=== PATIENT | male | born 1955 | race Caucasian/White ===

== ENCOUNTER → 2017-02-03 | Outpatient (CLI) | payer MEDICARE, MEDICAID ==
[2017-02-03 09:21] LABS: CHOLESTEROL 208.31 mg/dL (0-200); Direct HDL 61 mg/dL (>40); TRIGLYCERIDES 103 mg/dL (<150)
[2017-02-03 09:34] LABS: DIRECT LDL 109 mg/dL (<100)
[2017-02-03 09:41] LABS: FREE T3 2.86 pg/mL (2.77-5.27)
[2017-02-03 09:55] LABS: THYROID STIMULATING HORMONE 4.33 uIU/mL (0.47-4.68)
== END ==
LOC: LAB 08:44
PROVIDERS: ATTEND Family Medicine Geriatric Medicine
DX: E03.9 Hypothyroidism, unspecified (principal); E78.5 Hyperlipidemia, unspecified; C30.0 Malignant neoplasm of nasal cavity
CPT/HCPCS: 36415; 80061; 84436; 84443; 84481

== ENCOUNTER 2017-02-22 15:01 | Inpatient (IN) | payer MEDICARE, MEDICAID ==
--- NOTE | 2017-02-22 15:26 | ER Document Report ---
ED Respiratory Problem - General Time seen by provider: 15:20 Mode of Arrival: Medic Information source: Patient TRAVEL OUTSIDE OF THE [place] IN LAST 30 DAYS: No - HPI Patient complains to provider of: COPD, Short of breath Onset: Other - Refer to HPI notes Context: Hx COPD Associated symptoms: Cough, Difficulty breathing, Wheezing Similar symptoms previously: Yes Recently seen / treated by doctor: No <ANN ARSHAD - Last Filed: 02/22/17 23:30> <KATT CHÁVEZ - Last Filed: 02/22/17 23:42> - General Chief Complaint: Respiratory Distress Stated Complaint: RESPIRATORY DISTRESS Notes: Patient is a 60-year-old male presented to emergency department for difficulty breathing. Patient states he woke up this morning and his breathing has become worse throughout the day. Patient states he last had breathing like this 2 years ago. Patient has a history of COPD and is a former smoker. Patient also has had double lung resection in 2008 and patient states that he is using only about 1/3 of his lungs now. Patient states he uses Advair, Singulair and Lipitor and also has an albuterol inhaler; patient states that he carries an inhaler in his pocket for emergencies but did not use it today. Patient has a cough which he states is chronic. Patient also states he had some chest pain around his ribs this morning bilaterally and now he is having some back pain. Patient denies any fever, nausea, vomiting, or diarrhea. Patient has no known allergies. (ANN ARSHAD) - Related Data Allergies/Adverse Reactions: No Known Allergies Allergy (Verified 11/02/12 12:23) Past Medical History - General Information source: Patient - Social History Smoking Status: Former Smoker Cigarette use (# per day): No Chew tobacco use (# tins/day): No Frequency of alcohol use: None Drug Abuse: None Family History: None Patient has suicidal ideation: No Patient has homicidal ideation: No Pulmonary Medical History: Reports: Hx Bronchitis, Hx COPD, Hx Sleep Apnea Malignancy Medical History: Reports Hx Lung Cancer, Reports Hx Skin Cancer Past Surgical History: Reports: Hx Abdominal Surgery, Hx Bowel Surgery, Other - Double lung reductions caused by COPD (2008) - Immunizations Hx Diphtheria, Pertussis, Tetanus Vaccination: Yes - 2011 Hx Pneumococcal Vaccination: 10/19/09 <ANN ARSHAD - Last Filed: 02/22/17 23:30> Review of Systems - Review of Systems Constitutional: No symptoms reported EENT: No symptoms reported Cardiovascular: See HPI, Chest pain Respiratory: See HPI, Short of breath, Wheezing Gastrointestinal: No symptoms reported Genitourinary: No symptoms reported Male Genitourinary: No symptoms reported Musculoskeletal: No symptoms reported Skin: No symptoms reported Hematologic/Lymphatic: No symptoms reported Neurological/Psychological: No symptoms reported -: Yes All other systems reviewed and negative <MARTIN ARSHADINE - Last Filed: 02/22/17 23:30> Physical Exam <JOHNATHANMARTIN NEWTONINE - Last Filed: 02/22/17 23:30> <KATT CHÁVEZ - Last Filed: 02/22/17 23:42> - Vital signs Vitals: Resp Pulse Ox 20 95 02/22/17 15:19 02/22/17 15:19 - Notes Notes: GENERAL: Alert, interacts well. No acute distress. HEAD: Normocephalic, atraumatic. EYES: Pupils equal, round, and reactive to light. Extraocular movements intact. ENT: Oral mucosa moist, tongue midline. NECK: Full range of motion. Supple. Trachea midline. LUNGS: Poor air movement, expiratory wheeze and trace rhonchi, trace inspiratory crackles, retractions and accessory muscle usage. HEART: Regular rate and rhythm. No murmurs, gallops, or rubs. ABDOMEN: Soft, non-tender. Non-distended. Bowel sounds present in all 4 quadrants. EXTREMITIES: Moves all 4 extremities spontaneously. No edema, radial and dorsalis pedis pulses 2/4 bilaterally. No cyanosis. NEUROLOGICAL: Alert and oriented x3. Normal speech. PSYCH: Normal affect, normal mood. SKIN: Warm, dry, normal turgor. No rashes or lesions noted. (ANN ARSHAD) Course - Laboratory Result Diagrams: 02/22/17 16:09 02/22/17 15:50 - Consults Dr. Rodriguez Time consulted: 19:44 <ANN ARSHAD - Last Filed: 02/22/17 23:30> - Laboratory Result Diagrams: 02/22/17 16:09 02/22/17 15:50 <KATT CHÁVEZ - Last Filed: 02/22/17 23:42> - Re-evaluation Re-evalutation: 02/22/17 23:42 CBC shows leukocytosis of 14.2, pH slightly low at 7.3 on the venous blood gas, CMP grossly unremarkable, cardiac enzymes negative, chest x-ray is hyperinflated , CT a of the chest was ordered due to persistent hypoxia and hypotension, which showed bibasilar pneumonia but no pulmonary embolism. Patient was placed on BiPAP, given multiple breathing treatments and steroids, this eventually improved his respiratory distress, fluids improved his hypotension, patient was discussed with Dr. Rodriguez hospitalist who agrees to admit the patient to his service, patient was started on cefepime and Levaquin for his pneumonia. (KATT CHÁVEZ) - Vital Signs Vital signs: Temp Pulse Resp BP Pulse Ox 12 109/82 97 02/22/17 23:01 02/22/17 23:00 02/22/17 23:01 - Laboratory Laboratory results interpreted by me: 02/22/17 02/22/17 15:50 16:09 WBC 14.2 H RDW 14.4 H Seg Neuts % (Manual) 81 H Band Neutrophils % 12 H Lymphocytes % (Manual) 6 L Monocytes % (Manual) 0 L Abs Neuts (Manual) 13.2 H Abs Monocytes (Manual) 0.0 L Sodium 135.4 L Direct Bilirubin 0.5 H Creatine Kinase 44 L - Consults Dr. Rodriguez Reason for consultation: 02/22/17 19:[address] Rodriguez to admit the patient. He states there are no ICU beds available. He recommends to give the patient a liter of fluid and see if his blood pressure rises some. If he is no longer hypotensive then he will admit him to a medical floor, if he is still hypotensive then the patient needs to be transferred to another facility that has ICU beds. 02/22/17 23:[address] Rodriguez for possible admission. Patient will be admitted to a medical floor. (ANN ARSHAD) Critical Care Note - Critical Care Note Total time excluding time spent on procedures (mins): 45 <KATT CHÁVEZ - Last Filed: 02/22/17 23:42> Discharge <ANN ARSHAD - Last Filed: 02/22/17 23:30> - Discharge Admitting Provider: Hospitalist Unit Admitted: IMCU <KATT CHÁVEZ - Last Filed: 02/22/17 23:42> - Discharge Clinical Impression: Acute and chronic respiratory failure with hypoxia Pneumonia Qualifiers: Pneumonia type: due to unspecified organism Laterality: bilateral Lung location : lower lobe of lung Qualified Code(s): J18.9 - Pneumonia, unspecified organism Condition: Fair Disposition: ADMITTED INPATIENT Referrals: FILIBERTO PATEL DO [Primary Care Provider] - Follow up as needed Scribe Attestation: 02/22/17 23:42 I personally performed the services described in the documentation, reviewed and edited the documentation which was dictated to the scribe in my presence, and it accurately records my words and actions. (KATT CHÁVEZ) Scribe Documentation - Scribe Written by Dino:: Dino Lombardi, 02/22/17 18:30 acting as scribe for :: Cheryl <ANN ARSHAD - Last Filed: 02/22/17 23:30>
[2017-02-22] MEDS ORDERED: METHYLPREDNISOLONE INJ 125 MG/2 ML SDV IV ONE (15:29)
[2017-02-22] MEDS ORDERED: ALBUTEROL SULFATE 0.083% NEB 2.5 MG/3 ML AMPUL NEB ONE ×3 (15:29→20:25)
[2017-02-22 16:42] LABS: VENOUS BLOOD BASE EXCESS -2.1 mmol/L; VENOUS BLOOD HCO3 25.5 mmol/L (20-32); VENOUS BLOOD PCO2 53.4 mmHg (35-63); VENOUS BLOOD PH 7.3 (7.30-7.42)
[2017-02-22 16:45] LABS: ALANINE AMINOTRANSFERASE 25 U/L (21-72); ALBUMIN 4.1 g/dL (3.5-5.0); ALKALINE PHOSPHATASE 79 U/L (38-126); ANION GAP 12 (5-19); ASPARTATE AMINO TRANSFERASE 21 U/L (17-59); BILIRUBIN,DIRECT 0.5 mg/dL (0.0-0.4); BLOOD UREA NITROGEN 15 mg/dL (7-20); CALCIUM 9.5 mg/dL (8.4-10.2); CARBON DIOXIDE 24 mmol/L (22-30); CHLORIDE 99 mmol/L (98-107); CREATINE KINASE 44 U/L (55-170); CREATININE RESULT 0.64 mg/dL (0.52-1.25); GLUCOSE 101 mg/dL (75-110); POTASSIUM 3.9 mmol/L (3.6-5.0); SODIUM 135.4 mmol/L (137-145); TOTAL PROTEIN 7.1 g/dL (6.3-8.2)
[2017-02-22 16:50] LABS: HEMATOCRIT 42.3 % (37.9-51.0); HEMOGLOBIN 13.9 g/dL (13.5-17.0); HGB HCT DIFFERENCE -0.6; MEAN CORPUSCULAR HEMOGLOBIN 27.3 pg (27.0-33.4); MEAN CORPUSCULAR HGB CONC 32.9 g/dL (32.0-36.0); MEAN CORPUSCULAR VOLUME 83 fl (80-97); RED BLOOD COUNT 5.09 10^6/uL (4.35-5.55); RED CELL DISTRIBUTION WIDTH 14.4 % (11.5-14.0); WHITE BLOOD COUNT 14.2 10^3/uL (4.0-10.5)
[2017-02-22 16:57] LABS: CREATINE KINASE MB < 0.22 ng/mL (<4.55); TROPONIN I < 0.012 ng/mL
[2017-02-22 17:09] LABS: BAND NEUTROPHILS % (MANUAL) 12 % (3-5); BASOPHILS % (MANUAL) 1 % (0-2); EOSINOPHILS % (MANUAL) 0 % (0-6); LYMPHOCYTES % (MANUAL) 6 % (13-45); TOTAL CELLS COUNTED 100
[2017-02-22 17:10] LABS: RBC MORPHOLOGY COMMENT NORMO-CYTIC/CHROMIC
[2017-02-22] MEDS ORDERED: NORMAL SALINE 1000 ML 1,000 ML IV ONE (19:46)
[2017-02-22] MEDS ORDERED: LEVOFLOXACIN 750 MG/D5W RTU 150 ML IV ONE (23:14)
[2017-02-22] MEDS ORDERED: CEFEPIME 1 GM/D5W RTU 50 ML IV ONE (23:14)
[2017-02-22] MEDS ORDERED: CEFEPIME 2 GM/D5W RTU 2 GM/50 ML RTUPB IV ONE (23:47)
[2017-02-23] MEDS ORDERED: INSULIN LISPRO 100 UNIT/ML 3 ML VIAL SUBCUT PRN (00:26)
[2017-02-23] MEDS ORDERED: GLUCAGON,HUMAN RECOMB 1 MG INJ IM PRN (00:26)
[2017-02-23] MEDS ORDERED: DEXTROSE 50%-WATER 25 GM/50 ML DISP.SYRIN IV PRN ×2 (00:26)
[2017-02-23] MEDS ORDERED: DEXTROSE 40% GEL 15 GM TUBE PO PRN ×2 (00:26)
[2017-02-23] MEDS ORDERED: ALBUTEROL SULFATE 0.083% NEB 2.5 MG/3 ML AMPUL NEB PRN (00:27)
[2017-02-23] MEDS ORDERED: ACETAMINOPHEN 325 MG TABLET PO PRN (00:27)
[2017-02-23] MEDS ORDERED: GUAIFENESIN SYRP 200 MG/10 ML UDC PO PRN (00:27)
[2017-02-23] MEDS ORDERED: DEXTROSE 5%-NORMAL SALINE 1,000 ML IV PRN (00:29)
--- NOTE | 2017-02-23 01:02 | PDOC H&P ---
History of Present Illness Admission Date/PCP: 02/22/17 23:36 PCP Uncertain Андрей Patient complains of: SOB History of Present Illness: CHAD LY is a 61 year old male, former smoker, with non-home O2 dependent COPD, on CPAP at night, who presents to the emergency room for evaluation of a less than 24-hour history of progressive difficulty breathing. Patient has been discussed with emergency room physician who evaluated the patient. Progressive shortness of breath, in particular with much of any exertion, despite using his rescue inhaler at home. Initially bilateral rib pain with coughing, but now pain is simply in his back, again, with coughing. Cough productive of some sputum. Per EMS, 81% saturation on room air. 93% non-rebreather; 98% after neb treatment. No fever chills, nausea vomiting. For short while, mildly hypotensive in the emergency room. However, pressures have normalized with IV fluid and remained stable. Patient breathing much more comfortably now, with confirmation by ER staff, patient himself, and son, who is present at his side with his approval. neither antibiotics nor hospitalization for the last 3 months. Many years since his last flu vaccination. Has had a Pneumovax. Hospitalized on our service February 18 through the 2014, with final diagnoses including acute on chronic hypoxic respiratory failure secondary to pneumonia and COPD exacerbation. History and physical and discharge summary have been reviewed. Laboratory results are listed in [facility] and are reviewed. X-ray summary results are listed below, with full report(s) reviewed. CT scan report notes new Left lung nodule; discussed with patient and son, with strong recommendation to continue follow-up as outpatient. Son states that a lung nodule currently is being followed as an outpatient by Dr. Chiang. EKG reviewed. Social history/personal habits: . Lives alone. Retired. No tobacco use for 8 years. Rare alcohol. No illicit drug use. Allergies/adverse reactions NKDA. Home medications Home medications initially autopopulated into [facility] may not accurately reflect patient's true medications, dosages, and/or frequencies. 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 Unfortunately, patient uncertain of medications/dosages/frequencies. REVIEW OF SYSTEMS: Constitutional: No fever or chills. Eyes: Wears glasses. ENT: No swallowing problems or complaints. No hearing problems or complaints. Pulmonary: See history and present illness. Cardiovascular: See history and present illness. Gastrointestinal: No current complaints, including nausea or vomiting. Skin: No current complaints, including rashes. Hematologic: Easy bruising. Neurologic: No current complaints, including numbness or tingling. Musculoskeletal: Mild Joint pain from arthritis. Psychiatric: No current complaints, including anxiety or depression. Endocrine: No current complaints, including polyuria. Genitourinary: No current complaints, including dysuria. PHYSICAL EXAMINATION: 5 feet 8 inches tall. 66.2 kg. BMI 22.2 kg/m. Blood pressure 106/85. Pulse 89 and regular. 98% saturation on BiPAP 15/6, 40%. Respirations are 14, with patient making rare use of his accessory respiratory muscles. Thin otherwise well-developed though chronically ill-appearing male who appears a bit older than his stated age. Pleasant awake alert and cooperative. No obvious distress other than somewhat anxious. No agitation. Son is present at his side; patient approves. Skin is warm and dry. No grossly obvious evidence of rash in areas of skin examined. No subcutaneous nodules palpated. Upper extremity tattoos. ENT: Hearing grossly normal to normal conversation. Tongue midline on protrusion pink and slightly tacky. Exam slightly limited by BiPAP mask with attaching straps. Eyes: No scleral icterus. Pupils equally reactive to light; right pupil 6 mm; left 4 mm. pink conjunctivae. Neck is supple and nontender to gentle active range of motion and palpation. Midline trachea. No palpable thyroid nodule mass enlargement or tenderness. Lymphatic: No palpable cervical or clavicular nodes. Neck and lymphatic exams limited by patient body habitus. Exam slightly limited by BiPAP mask with attaching straps. Psychiatric: Reasonable insight into acute and chronic medical issues. Oriented to time location and why here. Lungs: Auscultation reveals clear and equal breath sounds bilaterally. . Cardiovascular: Heart regular rate and rhythm, without gallop murmur or rub. No abdominal aortic bruits. No ankle or pedal edema. Faintly palpable posterior tibial pulses. Difficult to evaluate for carotid bruit due to airway sounds from BiPAP device. Abdomen: soft, slightly, distended nontender with positive bowel sounds. Unable to adequately evaluate abdomen for masses or organomegaly due to distention. Extremities: Feet are warm and dry. No calf tenderness to compression. No grossly obvious visual evidence of calf swelling. Gentle manipulation of lower extremities fails to reveal any obvious evidence of injury or instability to knees hips or ankles. Neurologic: Moves upper extremities grossly normally. Patellar reflexes absent. Absent Babinski. Light touch is intact at feet. Dorsiflexion and plantarflexion of feet 5 / 5 and symmetric. Past Medical History Cardiac Medical History: Reports: Hyperlipidema Denies: Congestive Heart Failure, DVT, Myocardial Infarction, Hypertension, Pulmonary Embolism Pulmonary Medical History: Reports: Bronchitis, Chronic Obstructive Pulmonary Disease (COPD), Sleep Apnea - Questionable; possibly on CPAP for COPD issues. EENT Medical History: Reports: Eyes - Glasses Denies: Ears, Throat Neurological Medical History: Denies: Hemorrhagic CVA, Ischemic CVA, Seizures Endocrine Medical History: Denies: Diabetes Mellitus Type 1, Diabetes Mellitus Type 2, Hyperthyroidism, Hypothyroidism Renal/ Medical History: Reports: None Malignancy Medical History: Reports: Skin Cancer, Other - Nasopharyngeal cancer , radiation treatment, 2013. Denies: Lung Cancer GI Medical History: Denies: Cirrhosis, Gastroesophageal Reflux Disease, Hepatitis, Peptic Ulcer Disease Musculoskeltal Medical History: Reports: Arthritis Skin Medical History: Reports: Other - History of skin cancer Psychiatric Medical History: Denies: Alcohol Dependency, Depression, General Anxiety Disorder, Substance Abuse, Tobacco Dependency Hematology: Reports: Other - Easy bruising Infectious Medical History: Denies: Clostridium Difficile, Hepatitis B, Hepatitis C, Methicillin- Resistant Staph Aureus Past Surgical History Past Surgical History: Reports: Other - Double lung reductions for COPD (2008); PEG tube insertion, since removed; Social History Information Source: Patient, Emergency Med Personnel, [facility] Records Lives with: Alone Smoking Status: Former Smoker Frequency of Alcohol Use: Rare Hx Recreational Drug Use: No Hx Prescription Drug Abuse: No - Advance Directive Resuscitation Status: Full Code Surrogate healthcare decision maker:: Son Family History Family History: None Parental Family History Reviewed: Yes - uncertain cause of mother's ; father from GI bleed Children Family History Reviewed: Yes - Healthy Sibling(s) Family History Reviewed.: Yes - Uncertain health status Medication/Allergy Home Medications: Tiotropium [place] [Spiriva Handihaler 5 Cap/Kit (18 Mcg/Cap)] 1 cap IH DAILY Albuterol Sulfate [Ventolin HFA MDI 18 GM] 2 puff IH Q4HP #0 11/27/14 Fluticasone/Salmeterol [Advair 250-50 Diskus 14 Dose/Diskus] 1 inh IH Q12H 02/18 Allergies/Adverse Reactions: No Known Allergies Allergy (Verified 11/02/12 12:23) Physical Exam Vital Signs: Temp Pulse Resp BP Pulse Ox 12 109/82 97 02/22/17 23:01 02/22/17 23:00 02/22/17 23:01 Results Impressions: Chest X-Ray 02/22/17 18:10 IMPRESSION: COPD. NO ACUTE RADIOGRAPHIC FINDING IN THE CHEST. Chest/Abdomen CTA 02/22/17 21:21 IMPRESSION: Patchy consolidation is present in the both lower lobes, left greater than right. New 10 mm spiculated nodule in the medial basilar segment of the left lower lobe. No pulmonary emboli identified. Assessment & Plan - Diagnosis (1) Acute on chronic respiratory failure with hypoxia and hypercapnia Is this a current diagnosis for this admission?: YesPlan: Patient will be admitted under COPD exacerbation and pneumonia protocol. Incentive spirometry twice a day. Scheduled DuoNeb's. PRN albuterol nebs daily prednisone. Prevacid for gastritis prophylaxis. Antibiotics will consist of intravenous Zithromax and cefepime.. I strongly encouraged patient to notify staff should patient feel that his breathing is worsening. Patient is a full code. I have strongly encouraged patient not to get out of bed without notifying staff , , to avoid a fall with injury. Knee high SCDs for DVT prophylaxis, along with subcutaneous Lovenox Impression and plans were discussed with patient and son,, both of whom concur. Time spent in evaluation and management of patient: 63 minutes. (2) Lung nodule Is this a current diagnosis for this admission?: YesPlan: CTA chest notes new left lung nodule. Discussed with patient and son, with strong recommendations for outpatient follow-up. Son states that a lung nodule is currently being followed by Dr. Chiang. (3) Obstructive chronic bronchitis with exacerbation Is this a current diagnosis for this admission?: Yes (4) Pneumonia of both lower lobes Qualifiers: Pneumonia type: due to unspecified organism Qualified Code(s): J18.9 - Pneumonia, unspecified organism Is this a current diagnosis for this admission?: Yes - Inpatient Certification Based on my medical assessment, after consideration of the patient's comorbidities, presenting symptoms, or acuity I expect that the services needed warrant INPATIENT care.: Yes I certify that my determination is in accordance with my understanding of Medicare's requirements for reasonable and necessary INPATIENT services [42 CFR 412.3e].: Yes Medical Necessity: Need Close Monitoring Due to Risk of Patient Decompensation, Need For IV Fluids, Need For Continuous Telemetry Monitoring, Need for Nebulizer Therapy and Monitoring of Response, Need for IV Antibiotics, Risk of Complication if Not Cared For in Hospital, Risk of Diagnosis Which Will Require Inpatient Eval/Care/Monitoring Post Hospital Care: D/C or Transfer Summary
[2017-02-23 02:56] LABS: VENOUS BLOOD HCO3 23.1 mmol/L (20-32); VENOUS BLOOD PCO2 55.7 mmHg (35-63); VENOUS BLOOD PH 7.24 (7.30-7.42)
[2017-02-23] MEDS: LANSOPRAZOLE 30 MG TAB.RAP.DR PO SCH ×2 (05:09→17:02)
[2017-02-23 06:47] LABS: HEMATOCRIT 37.3 % (37.9-51.0); HEMOGLOBIN 12.6 g/dL (13.5-17.0); HGB HCT DIFFERENCE 0.5; MEAN CORPUSCULAR HGB CONC 33.9 g/dL (32.0-36.0); MEAN CORPUSCULAR VOLUME 83 fl (80-97); RED BLOOD COUNT 4.52 10^6/uL (4.35-5.55); RED CELL DISTRIBUTION WIDTH 14.3 % (11.5-14.0); VENOUS BLOOD BASE EXCESS -2.2 mmol/L; VENOUS BLOOD HCO3 25.1 mmol/L (20-32); VENOUS BLOOD PCO2 53.3 mmHg (35-63); VENOUS BLOOD PH 7.29 (7.30-7.42); WHITE BLOOD COUNT 18.4 10^3/uL (4.0-10.5)
[2017-02-23 07:02] LABS: ANION GAP 11 (5-19); BLOOD UREA NITROGEN 14 mg/dL (7-20); CALCIUM 9.4 mg/dL (8.4-10.2); CARBON DIOXIDE 25 mmol/L (22-30); CHLORIDE 102 mmol/L (98-107); CREATININE RESULT 0.63 mg/dL (0.52-1.25); GLUCOSE 138 mg/dL (75-110); POTASSIUM 4.5 mmol/L (3.6-5.0); SODIUM 138.3 mmol/L (137-145)
[2017-02-23 07:15] LABS: BAND NEUTROPHILS % (MANUAL) 8 % (3-5); BASOPHILS % (MANUAL) 0 % (0-2); EOSINOPHILS % (MANUAL) 0 % (0-6); LYMPHOCYTES % (MANUAL) 7 % (13-45); TOTAL CELLS COUNTED 100
[2017-02-23 07:16] LABS: OVALOCYTES SLIGHT; POIKILOCYTOSIS SLIGHT; POLYCHROMASIA SLIGHT; TOXIC GRANULATION SLIGHT; TOXIC VACUOLATION PRESENT
[2017-02-23] MEDS: IPRATROPIUM/ALBUTEROL 0.5-2.5 MG/3 ML AMPUL NEB SCH ×3 (08:05→19:43)
[2017-02-23] MEDS: ENOXAPARIN SODIUM INJ 40 MG/0.4 ML DISP.SYRIN SUBCUT SCH (08:07)
--- NOTE | 2017-02-23 08:32 | EKG REPORT ---
SEVERITY:- ABNORMAL ECG - SINUS RHYTHM PROBABLE LEFT ATRIAL ABNORMALITY LOW VOLTAGE IN FRONTAL LEADS BORDERLINE T ABNORMALITIES, ANT-LAT LEADS BORDERLINE PROLONGED QT INTERVAL : Confirmed by: Sylwia Allan 23-Feb-2017 08:32:31
[2017-02-23] MEDS: METHYLPREDNISOLONE INJ 40 MG/1 ML SDV IV SCH ×2 (09:10→17:02)
[2017-02-23] MEDS: CEFEPIME HCL 2 GM in DEXTROSE 5%-WATER 50 ML IV SCH ×2 (09:11→22:00)
[2017-02-23] MEDS ORDERED: PREDNISONE 20 MG TABLET PO SCH (10:00)
[2017-02-23] MEDS ORDERED: CEFEPIME 2 GM/D5W RTU 50 ML IV SCH (10:00)
[2017-02-23] MEDS ORDERED: AZITHROMYCIN 500 MG in DEXTROSE 5%-WATER 250 ML IV SCH (10:00)
[2017-02-23] MEDS: LEVOFLOXACIN 750 MG/D5W RTU 150 ML IV SCH (10:03)
--- NOTE | 2017-02-23 12:51 | PDOC PROGRESS REPORT ---
Subjective Progress Note for:: 02/23/17 Subjective:: Shortness of breath improved. Patient would like something to eat. Patient denies fever, chills, headache, new focal weakness, chest pain, abdominal pain, nausea, vomiting, diarrhea, constipation. Physical Exam Vital Signs: Temp Pulse Resp BP Pulse Ox 97.4 F 80 20 111/77 98 02/23/17 07:19 02/23/17 08:05 02/23/17 08:05 02/23/17 07:19 02/23/17 08:05 Intake & Output 02/22/17 02/23/17 02/24/17 06:59 06:59 06:59 Intake Total 280 Output Total 500 Balance -220 Weight 66.6 kg GENERAL: No acute distress HEENT: Conjunctiva clear, nonicteric, moist mucous membranes, no JVD, midline trachea RESPIRATORY: Barrel chested, inspiratory/expiratory wheezes, diminished air excursion CARDIAC: Regular rate and rhythm, no murmurs/gallops/rubs ABDOMEN: Soft, nondistended, nontender, positive bowel sounds, no rebound, no guarding EXTREMETIES: No edema, cyanosis, clubbing NEUROLOGIC: Alert, oriented to person/place/time, CN's grossly intact, no focal deficits SKIN: No rash, wounds PSYCH: Normal mood, normal affect Results Laboratory Results: 02/23/17 06:23 02/23/17 06:23 02/23/17 02/23/17 02/23/17 02:45 06:23 06:23 WBC 18.4 H RBC 4.52 Hgb 12.6 L Hct 37.3 L MCV 83 MCH 28.0 MCHC 33.9 RDW 14.3 H Plt Count 265 Seg Neutrophils % Not Reportable Lymphocytes % Not Reportable Monocytes % Not Reportable Eosinophils % Not Reportable Basophils % Not Reportable Absolute Neutrophils Not Reportable Absolute Lymphocytes Not Reportable Absolute Monocytes Not Reportable Absolute Eosinophils Not Reportable Absolute Basophils Not Reportable VBG pH 7.24 L VBG pCO2 55.7 VBG HCO3 23.1 VBG Base Excess -5.0 Sodium 138.3 Potassium 4.5 Chloride 102 Carbon Dioxide 25 Anion Gap 11 BUN 14 Creatinine 0.63 Est GFR ( Amer) > 60 Est GFR (Non-Af Amer) > 60 Glucose 138 H Calcium 9.4 02/23/17 06:23 WBC RBC Hgb Hct MCV MCH MCHC RDW Plt Count Seg Neutrophils % Lymphocytes % Monocytes % Eosinophils % Basophils % Absolute Neutrophils Absolute Lymphocytes Absolute Monocytes Absolute Eosinophils Absolute Basophils VBG pH 7.29 L VBG pCO2 53.3 VBG HCO3 25.1 VBG Base Excess -2.2 Sodium Potassium Chloride Carbon Dioxide Anion Gap BUN Creatinine Est GFR ( Amer) Est GFR (Non-Af Amer) Glucose Calcium Impressions: Chest X-Ray 02/22/17 18:10 IMPRESSION: COPD. NO ACUTE RADIOGRAPHIC FINDING IN THE CHEST. Chest/Abdomen CTA 02/22/17 21:21 IMPRESSION: Patchy consolidation is present in the both lower lobes, left greater than right. New 10 mm spiculated nodule in the medial basilar segment of the left lower lobe. No pulmonary emboli identified. Assessment & Plan - Diagnosis (1) Acute and chronic respiratory failure with hypoxia Is this a current diagnosis for this admission?: YesPlan: Continue oxygen supplementation. Patient currently did not require home oxygen prior to admission. (2) Pneumonia of both lower lobes Qualifiers: Pneumonia type: due to unspecified organism Qualified Code(s): J18.9 - Pneumonia, unspecified organism Is this a current diagnosis for this admission?: YesPlan: Continue IV cefepime and IV Levaquin. Blood and sputum cultures pending. (3) COPD exacerbation Is this a current diagnosis for this admission?: YesPlan: Continue IV Solu-Medrol. Bronchodilators. (4) Lung nodule Is this a current diagnosis for this admission?: YesPlan: Consult Dr. Yeager of pulmonary medicine. (5) Full code status Is this a current diagnosis for this admission?: Yes - Time Time Spent with patient: 35 or more minutes
[2017-02-23 15:51] LABS: PATH REVIEW PATHOLOGIST REVIEWED
[2017-02-23] MEDS: DEXTROSE 5%-NORMAL SALINE 1,000 ML IV PRN (17:49)
[2017-02-23] MEDS ORDERED: FLUTICASONE/SALMETEROL DISKUS 500-50 MCG/DOSE IH ONE (19:30)
--- NOTE | 2017-02-23 22:24 | CONSULTATION REPORT E ---
Consultation Report NAME: CHAD LY : 1955 AGE: 61Y DATE: 02/23/2017 319 A TO: SHEREEN VIERA M.D. FROM: FITZ JONES M.D. Requesting Physician HISTORY OF PRESENT ILLNESS: The patient is a 61-year-old male with past medical history of severe COPD, emphysema with bullae formations status post bullectomy right and left and status post nasal cancer status post radiation treatment and nasal cancer resection. Admitted for severe COPD exacerbation and acute hypoxemic respiratory failure on 02/22/2017 yesterday. The patient complained that he was coughing yellow-green phlegm over the last few days, denies any fever, chills. Patient claimed that when he woke up in the morning around 8:00 a.m. he became very short of breath and chest tightness which persisted until later in the afternoon and thus called the paramedics and eventually brought to the Emergency Room. The patient's son noted the patient's oxygen saturation went down to upper 70s with portable pulse oximeter prompting them to bring patient to the Emergency Room. He denies any chest pain, hemoptysis, vomiting, diarrhea, or abdominal pain. PAST MEDICAL HISTORY: Same as above. HOSPITAL MEDICATIONS: 1. Tylenol. 2. Albuterol. 3. DuoNeb nebulizer treatment. 4. Cefepime 2 g every 12 hours. 5. Lovenox 40 mg subcutaneous for DVT prophylaxis. 6. Robitussin syrup p.r.n. for severe cough. 7. Prevacid 30 mg p.o. b.i.d. 8. Levaquin 750 mg once daily. 9. Solu-Medrol 40 mg IV every 8 hours. ALLERGIES: No known drug allergies. HOME MEDICATIONS: 1. Advair 500 mcg Diskus inhaler 1 puff b.i.d. 2. Singulair 10 mg 1 tablet daily. 3. Spiriva Respimat 12.5 mcg 2 puffs once daily. 4. Ventolin inhaler 2 puffs every 4 hours as needed. SOCIAL HISTORY: The patient is a nonsmoker, about 1 pack per day; patient stopped smoking about 33 years ago. The patient also drinks alcohol occasionally. PAST SURGICAL HISTORY: 1. Cataract surgery. 2. Excision of tumor from nasal cavity back in 01/2014. 3. Resection of colon back in 2005. 4. Tonsillectomy. 5. Skin graft. FAMILY HISTORY: Cancer mother. Heart disease mother. Diabetes brother. REVIEW OF SYSTEMS: CONSTITUTIONAL: No fever or chills. EYES: No eye pain, blurry vision or jaundice. EARS, NOSE AND THROAT: No ear drainage. No nasal discharge. Complained about some postnasal discharge every morning. RESPIRATORY: Complained about increased shortness of breath which started yesterday morning associated with wheezing, chest tightness, coughing yellow-green phlegm intermittently. CARDIOVASCULAR: No chest pain. No dizziness. No palpitations. GASTROINTESTINAL: No nausea, vomiting, diarrhea. GENITOURINARY: No dysuria, hematuria, or stone disease. ABDOMEN: No nausea, vomiting, diarrhea. EXTREMITIES: No joint swelling. No cellulitis. PHYSICAL EXAMINATION: GENERAL: The patient is awake, alert, oriented x3. VITAL SIGNS: Blood pressure of 115/78. Temperature is 97.9 with T-max of 97.9. Heart rate of 97 per minute. Respiratory rate of 12. Saturation of 100% on 2 L nasal cannula. EYES: No jaundice or pallor. EARS, NOSE AND THROAT: No ear drainage. No sinusitis. HEAD AND NECK: No scalp tenderness. Neck is supple. CHEST/LUNGS: No wheezing. No rhonchi. No coarse crackles. CARDIOVASCULAR: S1, S2 distinct. Normal rate and regular rhythm. ABDOMEN: Flabby. Positive bowel sounds. Soft, nondistended. EXTREMITIES: No joint swelling or cellulitis. LABORATORY: CBC done yesterday showed white count of 14.2 which went up this morning to 18.4; hemoglobin is 13.9; hematocrit is 42.3; platelets is about 316. ABG done this morning at 6:33 a.m. showed pH of 7.49, pCO2 of 53.3, and bicarbonate of 35.1. Chemistry done today showed sodium of 138, potassium 4.5, chloride 102, CO2 35. BUN is 14; creatinine is 0.63. Glucose is 115, and calcium is 9.4. Chest CT scan done at [facility] on 02/22/2017 showed a 10 mm nodule in the superior segment of the left lower lobe, appeared to be spiculated. Reviewed patient's chest CT scan from [facility] dated 09/29/2016 which did not show any similar nodules in the left lower lobe. The patient has nodules in the left upper lobe which seem to be stable in the last 5 months. ASSESSMENT: 1. Pulmonary nodule 10 mm, spiculated, involving the left lower lobe superior segment. Appeared to be new and not present on 09/29/[address] scan at [facility]. It may be related to an infectious process. Malignancy cannot be completely ruled out. 2. Pulmonary infiltrate which may be pneumonic involving the left lower lobe greater than right lower lobe. 3. Severe chronic obstructive pulmonary disease with history of bullae formations status post bullectomy right and left lungs. 4. History of nasal cancer status post resection and chemotherapy. 5. Pneumonia by data. 6. Acute respiratory failure appeared to be improving on BiPAP therapy due to chronic obstructive pulmonary disease exacerbation. PLAN AND RECOMMENDATIONS: 1. Optimize COPD therapy. We will start the patient on Spiriva inhaler 1 capsule once daily. 2. We will start the patient also on Advair 500 mcg Diskus inhaler 1 puff BID daily. 3. Continue nebulizer treatment every 6 hours as needed. 4. We will use albuterol inhaler 2 puffs every 4 hours as needed. 5. Continue IV antibiotics. Recommend changing to Levaquin after a few days. 6. We will follow the patient. Repeat chest CT scan in 3 months to evaluate the new lung nodule which may be inflammatory in nature because of the recent pneumonia. 7. Recommend pulmonary clinic follow up in 2 to 3 weeks after hospital discharge. If you have any questions, please feel free to call me. DICTATING PHYSICIAN: SHEREEN VIERA MD,ABDELRAHMAN,MPH [id number] PHY#: [id number] ID: [id number] JOB#: [id number] ACCT: [id number] cc:SHEREEN VIERA M.D. > NIRMAL
[2017-02-24] MEDS: METHYLPREDNISOLONE INJ 40 MG/1 ML SDV IV SCH ×3 (02:57→17:34)
[2017-02-24 05:11] LABS: ANION GAP 7 (5-19); BLOOD UREA NITROGEN 15 mg/dL (7-20); CALCIUM 9.3 mg/dL (8.4-10.2); CARBON DIOXIDE 25 mmol/L (22-30); CHLORIDE 109 mmol/L (98-107); CREATININE RESULT 0.66 mg/dL (0.52-1.25); GLUCOSE 126 mg/dL (75-110); MAGNESIUM 2.1 mg/dL (1.6-2.3); POTASSIUM 4.2 mmol/L (3.6-5.0); SODIUM 140.8 mmol/L (137-145)
[2017-02-24] MEDS: LANSOPRAZOLE 30 MG TAB.RAP.DR PO SCH ×2 (05:14→17:34)
[2017-02-24 05:16] LABS: HEMATOCRIT 35.1 % (37.9-51.0); HEMOGLOBIN 11.7 g/dL (13.5-17.0); MEAN CORPUSCULAR HEMOGLOBIN 27.4 pg (27.0-33.4); MEAN CORPUSCULAR HGB CONC 33.2 g/dL (32.0-36.0); MEAN CORPUSCULAR VOLUME 83 fl (80-97); RED BLOOD COUNT 4.25 10^6/uL (4.35-5.55); RED CELL DISTRIBUTION WIDTH 14.8 % (11.5-14.0); WHITE BLOOD COUNT 16.4 10^3/uL (4.0-10.5)
[2017-02-24 05:53] LABS: BASOPHILS % (MANUAL) 0 % (0-2); EOSINOPHILS % (MANUAL) 0 % (0-6); LYMPHOCYTES % (MANUAL) 4 % (13-45); TOTAL CELLS COUNTED 100
[2017-02-24 05:55] LABS: ANISOCYTOSIS SLIGHT; OVALOCYTES SLIGHT
[2017-02-24] MEDS: IPRATROPIUM/ALBUTEROL 0.5-2.5 MG/3 ML AMPUL NEB SCH ×3 (08:04→19:43)
[2017-02-24] MEDS: ENOXAPARIN SODIUM INJ 40 MG/0.4 ML DISP.SYRIN SUBCUT SCH (08:15)
[2017-02-24] MEDS: CEFEPIME HCL 2 GM in DEXTROSE 5%-WATER 50 ML IV SCH ×2 (09:39→21:00)
[2017-02-24] MEDS: LEVOFLOXACIN 750 MG/D5W RTU 150 ML IV SCH (09:40)
[2017-02-24] MEDS: FLUTICASONE/SALMETEROL DISKUS 500-50 MCG/DOSE IH SCH ×2 (09:41→17:34)
[2017-02-24] MEDS: TIOTROPIUM BROMIDE DPI 5 CAP/KIT (18 MCG/CAP) IH SCH (09:42)
[2017-02-24] MEDS: DEXTROSE 5%-NORMAL SALINE 1,000 ML IV PRN (09:44)
--- NOTE | 2017-02-24 14:13 | PDOC PROGRESS REPORT ---
Subjective Progress Note for:: 02/24/17 Subjective:: This is a follow-up visit for pneumonia. The patient was seen today currently has no complaints. Overall he feels that he is getting better. He does not usually use oxygen at home. There have been no acute events overnight. He denies any chest pain or worsening shortness of breath. He hasn't gotten out of bed yet this morning but based on yesterday he was no more short of breath than he was at rest. Physical Exam Vital Signs: Temp Pulse Resp BP Pulse Ox 97.9 F 85 16 124/80 100 02/24/17 07:18 02/24/17 08:04 02/24/17 08:04 02/24/17 07:18 02/24/17 08:04 Intake & Output 02/23/17 02/24/17 02/25/17 06:59 06:59 06:59 Intake Total 280 2915 Output Total 500 1150 Balance -220 1765 Weight 66.6 kg 66.7 kg Physical exam: Gen.: This is a well-developed well-nourished appearing white male resting in bed currently in no acute distress. Heart: Regular rate and rhythm no murmurs rubs or gallops. Lungs: Reasonably clear to auscultation bilaterally with equal rise and fall of chest. Only ever so slightly diminished at the bases Abdomen: soft nontender nondistended Extremities: No clubbing cyanosis or edema. 1+ peripheral pulses. Neuro: Awake alert oriented cranial nerves grossly intact Results Laboratory Results: 02/24/17 03:52 02/24/17 03:52 02/24/17 02/24/17 03:52 03:52 WBC 16.4 H RBC 4.25 L Hgb 11.7 L Hct 35.1 L MCV 83 MCH 27.4 MCHC 33.2 RDW 14.8 H Plt Count 252 Seg Neutrophils % Not Reportable Lymphocytes % Not Reportable Monocytes % Not Reportable Eosinophils % Not Reportable Basophils % Not Reportable Absolute Neutrophils Not Reportable Absolute Lymphocytes Not Reportable Absolute Monocytes Not Reportable Absolute Eosinophils Not Reportable Absolute Basophils Not Reportable Sodium 140.8 Potassium 4.2 Chloride 109 H Carbon Dioxide 25 Anion Gap 7 BUN 15 Creatinine 0.66 Est GFR ( Amer) > 60 Est GFR (Non-Af Amer) > 60 Glucose 126 H Calcium 9.3 Magnesium 2.1 02/23/17 03:10 Nasophary (Mrsa Only) MRSA Surveillance Culture - Final NO MRSA RECOVERED Impressions: Chest X-Ray 02/22/17 18:10 IMPRESSION: COPD. NO ACUTE RADIOGRAPHIC FINDING IN THE CHEST. Chest/Abdomen CTA 02/22/17 21:21 IMPRESSION: Patchy consolidation is present in the both lower lobes, left greater than right. New 10 mm spiculated nodule in the medial basilar segment of the left lower lobe. No pulmonary emboli identified. Assessment & Plan - Diagnosis (1) Acute and chronic respiratory failure with hypoxia Is this a current diagnosis for this admission?: YesPlan: Patient is much improved. He still requiring oxygen. Wean as tolerated. Continue neb treatments as needed. (2) Pneumonia Qualifiers: Pneumonia type: due to unspecified organism Laterality: bilateral Lung location: lower lobe of lung Qualified Code(s): J18.9 - Pneumonia, unspecified organism Plan: Continue cefepime and Levaquin. White blood cell count is down as compared to yesterday but still elevated overall as compared to admission. Sputum cultures are growing gram-negative rods will await identification and susceptibility. (3) COPD exacerbation Is this a current diagnosis for this admission?: YesPlan: Continue steroids for today. Continue nebulizers. (4) Lung nodule Is this a current diagnosis for this admission?: YesPlan: Management as per pulmonology. (5) Bacteremia Plan: Blood cultures are positive for gram-positive cocci. Unclear as to whether this is in chains were in clusters. Will await identification and susceptibility. The patient is afebrile and white count is declining. Clinically he looks better. This may be a contaminant. If not we will need to broaden out coverage. - Time Time Spent with patient: 25-34 minutes Anticipated discharge: Home - Inpatient Certification Medical Necessity: Significant Comorbidiites Make Outpatient Treatment Too Risky , Need for IV Antibiotics
[2017-02-25] MEDS: METHYLPREDNISOLONE INJ 40 MG/1 ML SDV IV SCH ×3 (02:55→17:34)
[2017-02-25] MEDS: LANSOPRAZOLE 30 MG TAB.RAP.DR PO SCH ×2 (05:24→17:34)
[2017-02-25] MEDS: DEXTROSE 5%-NORMAL SALINE 1,000 ML IV PRN ×2 (05:26→22:33)
[2017-02-25 05:29] LABS: HEMATOCRIT 35.4 % (37.9-51.0); HEMOGLOBIN 11.6 g/dL (13.5-17.0); HGB HCT DIFFERENCE -0.6; MEAN CORPUSCULAR HEMOGLOBIN 27.1 pg (27.0-33.4); MEAN CORPUSCULAR HGB CONC 32.8 g/dL (32.0-36.0); MEAN CORPUSCULAR VOLUME 83 fl (80-97); RED BLOOD COUNT 4.28 10^6/uL (4.35-5.55); RED CELL DISTRIBUTION WIDTH 14.5 % (11.5-14.0); WHITE BLOOD COUNT 17.1 10^3/uL (4.0-10.5)
[2017-02-25 05:32] LABS: ANION GAP 10 (5-19); BLOOD UREA NITROGEN 19 mg/dL (7-20); CARBON DIOXIDE 26 mmol/L (22-30); CHLORIDE 107 mmol/L (98-107); GLUCOSE 112 mg/dL (75-110); MAGNESIUM 1.9 mg/dL (1.6-2.3); POTASSIUM 3.9 mmol/L (3.6-5.0); SODIUM 142.8 mmol/L (137-145)
[2017-02-25 05:52] LABS: BASOPHILS % (MANUAL) 0 % (0-2); EOSINOPHILS % (MANUAL) 0 % (0-6); LYMPHOCYTES % (MANUAL) 5 % (13-45); TOTAL CELLS COUNTED 100
[2017-02-25 05:53] LABS: ANISOCYTOSIS SLIGHT; TOXIC GRANULATION 1+; TOXIC VACUOLATION PRESENT
[2017-02-25] MEDS: IPRATROPIUM/ALBUTEROL 0.5-2.5 MG/3 ML AMPUL NEB SCH ×3 (07:33→19:58)
[2017-02-25] MEDS: LEVOFLOXACIN 750 MG TABLET PO SCH (09:21)
[2017-02-25] MEDS: ENOXAPARIN SODIUM INJ 40 MG/0.4 ML DISP.SYRIN SUBCUT SCH (09:21)
[2017-02-25] MEDS: CEFEPIME HCL 2 GM in DEXTROSE 5%-WATER 50 ML IV SCH (09:23)
[2017-02-25] MEDS: TIOTROPIUM BROMIDE DPI 5 CAP/KIT (18 MCG/CAP) IH SCH (09:23)
[2017-02-25] MEDS: FLUTICASONE/SALMETEROL DISKUS 500-50 MCG/DOSE IH SCH ×2 (09:23→17:34)
[2017-02-25] MEDS ORDERED: VANCOMYCIN HCL 0 MG in DEXTROSE 5%-WATER 250 ML IV NR (10:45)
--- NOTE | 2017-02-25 11:29 | PDOC PROGRESS REPORT ---
Subjective Progress Note for:: 02/25/17 Subjective:: This is a follow-up visit for pneumonia. The patient was seen today currently has no complaints. Overall he feels that he is getting better. He does not usually use oxygen at home. He tells me he walked the halls yesterday. He didn 't fill any more short of breath. There have been no acute events overnight. He denies any chest pain or worsening shortness of breath. Physical Exam Vital Signs: Temp Pulse Resp BP Pulse Ox 97.8 F 105 H 19 145/85 H 98 02/25/17 08:13 02/25/17 08:13 02/25/17 08:13 02/25/17 08:13 02/25/17 08:13 Intake & Output 02/24/17 02/25/17 02/26/17 06:59 06:59 06:59 Intake Total 2915 2340 Output Total 1150 650 Balance 1765 1690 Weight 66.7 kg 68 kg Physical exam: Gen.: This is a well-developed well-nourished appearing white male resting in in a chair currently in no acute distress. Heart: Regular rate and rhythm no murmurs rubs or gallops. Lungs: Clear to auscultation bilaterally with equal rise and fall of chest. Abdomen: soft nontender nondistended Extremities: No clubbing cyanosis or edema. 1+ peripheral pulses. Neuro: Awake alert oriented cranial nerves grossly intact Results Laboratory Results: 02/25/17 04:44 02/25/17 04:44 02/25/17 02/25/17 04:44 04:44 WBC 17.1 H RBC 4.28 L Hgb 11.6 L Hct 35.4 L MCV 83 MCH 27.1 MCHC 32.8 RDW 14.5 H Plt Count 275 Seg Neutrophils % Not Reportable Lymphocytes % Not Reportable Monocytes % Not Reportable Eosinophils % Not Reportable Basophils % Not Reportable Absolute Neutrophils Not Reportable Absolute Lymphocytes Not Reportable Absolute Monocytes Not Reportable Absolute Eosinophils Not Reportable Absolute Basophils Not Reportable Sodium 142.8 Potassium 3.9 Chloride 107 Carbon Dioxide 26 Anion Gap 10 BUN 19 Creatinine 0.70 Est GFR ( Amer) > 60 Est GFR (Non-Af Amer) > 60 Glucose 112 H Calcium 9.0 Magnesium 1.9 02/23/17 03:15 Sputum Gram Stain - Final 02/23/17 03:10 Nasophary (Mrsa Only) MRSA Surveillance Culture - Final NO MRSA RECOVERED Impressions: Chest X-Ray 02/22/17 18:10 IMPRESSION: COPD. NO ACUTE RADIOGRAPHIC FINDING IN THE CHEST. Chest/Abdomen CTA 02/22/17 21:21 IMPRESSION: Patchy consolidation is present in the both lower lobes, left greater than right. New 10 mm spiculated nodule in the medial basilar segment of the left lower lobe. No pulmonary emboli identified. Assessment & Plan - Diagnosis (1) Acute and chronic respiratory failure with hypoxia Is this a current diagnosis for this admission?: YesPlan: Patient is much improved. He still requiring oxygen. Wean as tolerated. Continue neb treatments as needed. (2) Pneumonia Qualifiers: Pneumonia type: due to unspecified organism Laterality: bilateral Lung location: lower lobe of lung Qualified Code(s): J18.9 - Pneumonia, unspecified organism Plan: Continue cefepime and Levaquin. White blood cell count is down as compared to yesterday but still elevated overall as compared to admission. Sputum cultures are growing gram-negative rods will await identification and susceptibility. (3) COPD exacerbation Is this a current diagnosis for this admission?: YesPlan: Continue steroids for today. Continue nebulizers. (4) Lung nodule Is this a current diagnosis for this admission?: YesPlan: Management as per pulmonology. (5) Bacteremia Plan: Blood cultures are positive viridans group strep. A dose of vancomycin was ordered prior to results being available. The blood culture is growing one of 2 bottles. Repeat blood cultures. Patient is not allergic to any antibiotics. We will start Unasyn. No dose of vancomycin has been given as of yet. - Time Time Spent with patient: 25-34 minutes - Inpatient Certification Medical Necessity: Need Close Monitoring Due to Risk of Patient Decompensation, Need for IV Antibiotics
[2017-02-25] MEDS: AMPICILLIN SODIUM/SULBACTAM NA 1.5 GM in NORMAL SALINE 50 ML IV SCH ×2 (15:22→21:00)
[2017-02-26] MEDS: AMPICILLIN SODIUM/SULBACTAM NA 1.5 GM in NORMAL SALINE 50 ML IV SCH ×4 (02:59→20:18)
[2017-02-26] MEDS: METHYLPREDNISOLONE INJ 40 MG/1 ML SDV IV SCH ×3 (02:59→21:47)
[2017-02-26] MEDS: LANSOPRAZOLE 30 MG TAB.RAP.DR PO SCH ×2 (05:14→16:44)
[2017-02-26] MEDS: IPRATROPIUM/ALBUTEROL 0.5-2.5 MG/3 ML AMPUL NEB SCH ×3 (08:21→19:28)
[2017-02-26] MEDS: ENOXAPARIN SODIUM INJ 40 MG/0.4 ML DISP.SYRIN SUBCUT SCH (09:22)
[2017-02-26] MEDS: LEVOFLOXACIN 750 MG TABLET PO SCH (09:22)
[2017-02-26] MEDS: TIOTROPIUM BROMIDE DPI 5 CAP/KIT (18 MCG/CAP) IH SCH (09:23)
[2017-02-26] MEDS: FLUTICASONE/SALMETEROL DISKUS 500-50 MCG/DOSE IH SCH ×2 (09:23→16:44)
[2017-02-26 11:33] LABS: HEMATOCRIT 39.5 % (37.9-51.0); HEMOGLOBIN 12.9 g/dL (13.5-17.0); HGB HCT DIFFERENCE -0.8; MEAN CORPUSCULAR HEMOGLOBIN 27.1 pg (27.0-33.4); MEAN CORPUSCULAR HGB CONC 32.7 g/dL (32.0-36.0); MEAN CORPUSCULAR VOLUME 83 fl (80-97); RED BLOOD COUNT 4.77 10^6/uL (4.35-5.55); RED CELL DISTRIBUTION WIDTH 14.8 % (11.5-14.0); WHITE BLOOD COUNT 13.8 10^3/uL (4.0-10.5)
[2017-02-26 11:42] LABS: ANION GAP 12 (5-19); BLOOD UREA NITROGEN 15 mg/dL (7-20); CALCIUM 9.5 mg/dL (8.4-10.2); CARBON DIOXIDE 30 mmol/L (22-30); CHLORIDE 102 mmol/L (98-107); CREATININE RESULT 0.65 mg/dL (0.52-1.25); GLUCOSE 88 mg/dL (75-110); MAGNESIUM 1.9 mg/dL (1.6-2.3); POTASSIUM 3.7 mmol/L (3.6-5.0); SODIUM 144.1 mmol/L (137-145)
[2017-02-26 12:25] LABS: BASOPHILS % (MANUAL) 0 % (0-2); EOSINOPHILS % (MANUAL) 0 % (0-6); LYMPHOCYTES % (MANUAL) 6 % (13-45); TOTAL CELLS COUNTED 100; TOXIC GRANULATION SLIGHT
[2017-02-26 12:26] LABS: HYPOCHROMASIA SLIGHT; OVALOCYTES SLIGHT; POIKILOCYTOSIS SLIGHT
--- NOTE | 2017-02-26 14:39 | PDOC PROGRESS REPORT ---
Subjective Progress Note for:: 02/26/17 Subjective:: This is a follow-up visit for pneumonia. The patient was seen today currently has no complaints. He denies any chest pain or worsening shortness of breath. Physical Exam Vital Signs: Temp Pulse Resp BP Pulse Ox 97.6 F 99 19 105/74 100 02/26/17 12:24 02/26/17 12:24 02/26/17 12:24 02/26/17 12:24 02/26/17 12:24 Intake & Output 02/25/17 02/26/17 02/27/17 06:59 06:59 06:59 Intake Total 2340 2848 628 Output Total 650 1500 375 Balance 1690 1348 253 Weight 68 kg 69.9 kg Physical exam: Gen.: This is a well-developed well-nourished appearing white male resting in in a chair currently in no acute distress. Heart: Regular rate and rhythm no murmurs rubs or gallops. Lungs: Clear to auscultation bilaterally with equal rise and fall of chest. Abdomen: soft nontender nondistended Extremities: No clubbing cyanosis or edema. 1+ peripheral pulses. Neuro: Awake alert oriented cranial nerves grossly intact Results Laboratory Results: 02/26/17 11:16 02/26/17 11:16 02/26/17 02/26/17 11:16 11:16 WBC 13.8 H RBC 4.77 Hgb 12.9 L Hct 39.5 MCV 83 MCH 27.1 MCHC 32.7 RDW 14.8 H Plt Count 320 Seg Neutrophils % Not Reportable Lymphocytes % Not Reportable Monocytes % Not Reportable Eosinophils % Not Reportable Basophils % Not Reportable Absolute Neutrophils Not Reportable Absolute Lymphocytes Not Reportable Absolute Monocytes Not Reportable Absolute Eosinophils Not Reportable Absolute Basophils Not Reportable Sodium 144.1 Potassium 3.7 Chloride 102 Carbon Dioxide 30 Anion Gap 12 BUN 15 Creatinine 0.65 Est GFR ( Amer) > 60 Est GFR (Non-Af Amer) > 60 Glucose 88 Calcium 9.5 Magnesium 1.9 02/23/17 03:15 Sputum Gram Stain - Final 02/23/17 03:15 Sputum Sputum Culture - Final NORMAL JEANNE Impressions: Chest X-Ray 02/22/17 18:10 IMPRESSION: COPD. NO ACUTE RADIOGRAPHIC FINDING IN THE CHEST. Chest/Abdomen CTA 05/07/17 21:21 IMPRESSION: Patchy consolidation is present in the both lower lobes, left greater than right. New 10 mm spiculated nodule in the medial basilar segment of the left lower lobe. No pulmonary emboli identified. Assessment & Plan - Diagnosis (1) Acute and chronic respiratory failure with hypoxia Is this a current diagnosis for this admission?: YesPlan: Patient is much improved. He still requiring oxygen. Wean as tolerated. Continue neb treatments as needed. (2) Pneumonia Qualifiers: Pneumonia type: due to unspecified organism Laterality: bilateral Lung location: lower lobe of lung Qualified Code(s): J18.9 - Pneumonia, unspecified organism Plan: Continue Unasyn and Levaquin. WBCs ordered and pending.. Sputum cultures are growing gram-negative rods will await identification and susceptibility. (3) COPD exacerbation Is this a current diagnosis for this admission?: YesPlan: Continue steroids for today. Change to every 12 dosing. Continue nebulizers. (4) Lung nodule Is this a current diagnosis for this admission?: YesPlan: Management as per pulmonology. (5) Bacteremia Plan: Blood cultures are positive viridans group strep. Repeat blood cultures. Continue Unasyn. - Time Time Spent with patient: 15-24 minutes Anticipated discharge: Home - Inpatient Certification Medical Necessity: Need for IV Antibiotics
[2017-02-27] MEDS: AMPICILLIN SODIUM/SULBACTAM NA 1.5 GM in NORMAL SALINE 50 ML IV SCH ×4 (02:31→20:08)
[2017-02-27 04:48] LABS: HEMATOCRIT 37.4 % (37.9-51.0); HEMOGLOBIN 12.2 g/dL (13.5-17.0); HGB HCT DIFFERENCE -0.8; MEAN CORPUSCULAR HEMOGLOBIN 26.7 pg (27.0-33.4); MEAN CORPUSCULAR HGB CONC 32.7 g/dL (32.0-36.0); MEAN CORPUSCULAR VOLUME 82 fl (80-97); RED BLOOD COUNT 4.58 10^6/uL (4.35-5.55); RED CELL DISTRIBUTION WIDTH 14.3 % (11.5-14.0); WHITE BLOOD COUNT 12.2 10^3/uL (4.0-10.5)
[2017-02-27 05:00] LABS: ANION GAP 9 (5-19); BLOOD UREA NITROGEN 22 mg/dL (7-20); CALCIUM 9.2 mg/dL (8.4-10.2); CARBON DIOXIDE 32 mmol/L (22-30); CHLORIDE 103 mmol/L (98-107); CREATININE RESULT 0.67 mg/dL (0.52-1.25); GLUCOSE 105 mg/dL (75-110); POTASSIUM 4.1 mmol/L (3.6-5.0); SODIUM 144.3 mmol/L (137-145)
[2017-02-27 05:17] LABS: BASOPHILS % (MANUAL) 0 % (0-2); EOSINOPHILS % (MANUAL) 0 % (0-6); LYMPHOCYTES % (MANUAL) 4 % (13-45); TOTAL CELLS COUNTED 100
[2017-02-27 05:18] LABS: RBC MORPHOLOGY COMMENT NORMO-CYTIC/CHROMIC; TOXIC GRANULATION SLIGHT; TOXIC VACUOLATION PRESENT
[2017-02-27] MEDS: LANSOPRAZOLE 30 MG TAB.RAP.DR PO SCH ×2 (05:27→16:59)
[2017-02-27] MEDS: DEXTROSE 5%-NORMAL SALINE 1,000 ML IV PRN (06:46)
[2017-02-27] MEDS: IPRATROPIUM/ALBUTEROL 0.5-2.5 MG/3 ML AMPUL NEB SCH ×3 (09:25→20:19)
[2017-02-27] MEDS: FLUTICASONE/SALMETEROL DISKUS 500-50 MCG/DOSE IH SCH ×2 (10:34→16:59)
[2017-02-27] MEDS: METHYLPREDNISOLONE INJ 40 MG/1 ML SDV IV SCH (10:34)
[2017-02-27] MEDS: LEVOFLOXACIN 750 MG TABLET PO SCH (10:34)
[2017-02-27] MEDS: TIOTROPIUM BROMIDE DPI 5 CAP/KIT (18 MCG/CAP) IH SCH (10:35)
[2017-02-27] MEDS: ENOXAPARIN SODIUM INJ 40 MG/0.4 ML DISP.SYRIN SUBCUT SCH (10:36)
--- NOTE | 2017-02-27 13:23 | PDOC PROGRESS REPORT ---
Subjective Progress Note for:: 02/27/17 Subjective:: This is a follow-up visit for pneumonia. The patient was seen today currently has no complaints. He denies any chest pain or worsening shortness of breath. Physical Exam Vital Signs: Temp Pulse Resp BP Pulse Ox 98.0 F 73 14 128/88 H 96 02/27/17 07:47 02/27/17 07:47 02/27/17 07:47 02/27/17 07:47 02/27/17 07:47 Intake & Output 02/26/17 02/27/17 02/28/17 06:59 06:59 06:59 Intake Total 2848 3115 Output Total 1500 1950 Balance 1348 1165 Weight 69.9 kg 70.2 kg Physical exam: Gen.: This is a well-developed well-nourished appearing white male resting in in a chair currently in no acute distress. Heart: Regular rate and rhythm no murmurs rubs or gallops. Lungs: Clear to auscultation bilaterally with equal rise and fall of chest. Patient's shortness of breath seems to return during extended conversation. He is still on nasal cannula oxygen. Abdomen: soft nontender nondistended Extremities: No clubbing cyanosis or edema. 1+ peripheral pulses. Neuro: Awake alert oriented cranial nerves grossly intact Results Laboratory Results: 02/27/17 04:23 02/27/17 04:23 02/26/17 02/26/17 02/27/17 11:16 11:16 04:23 WBC 13.8 H 12.2 H RBC 4.77 4.58 Hgb 12.9 L 12.2 L Hct 39.5 37.4 L MCV 83 82 MCH 27.1 26.7 L MCHC 32.7 32.7 RDW 14.8 H 14.3 H Plt Count 320 299 Seg Neutrophils % Not Reportable Not Reportable Lymphocytes % Not Reportable Not Reportable Monocytes % Not Reportable Not Reportable Eosinophils % Not Reportable Not Reportable Basophils % Not Reportable Not Reportable Absolute Neutrophils Not Reportable Not Reportable Absolute Lymphocytes Not Reportable Not Reportable Absolute Monocytes Not Reportable Not Reportable Absolute Eosinophils Not Reportable Not Reportable Absolute Basophils Not Reportable Not Reportable Sodium 144.1 Potassium 3.7 Chloride 102 Carbon Dioxide 30 Anion Gap 12 BUN 15 Creatinine 0.65 Est GFR ( Amer) > 60 Est GFR (Non-Af Amer) > 60 Glucose 88 Calcium 9.5 Magnesium 1.9 02/27/17 04:23 WBC RBC Hgb Hct MCV MCH MCHC RDW Plt Count Seg Neutrophils % Lymphocytes % Monocytes % Eosinophils % Basophils % Absolute Neutrophils Absolute Lymphocytes Absolute Monocytes Absolute Eosinophils Absolute Basophils Sodium 144.3 Potassium 4.1 Chloride 103 Carbon Dioxide 32 H Anion Gap 9 BUN 22 H Creatinine 0.67 Est GFR ( Amer) > 60 Est GFR (Non-Af Amer) > 60 Glucose 105 Calcium 9.2 Magnesium 2.0 02/23/17 03:15 Sputum Gram Stain - Final 02/23/17 03:15 Sputum Sputum Culture - Final NORMAL KIET Impressions: Chest X-Ray 02/22/17 18:10 IMPRESSION: COPD. NO ACUTE RADIOGRAPHIC FINDING IN THE CHEST. Chest/Abdomen CTA 02/22/17 21:21 IMPRESSION: Patchy consolidation is present in the both lower lobes, left greater than right. New 10 mm spiculated nodule in the medial basilar segment of the left lower lobe. No pulmonary emboli identified. Assessment & Plan - Diagnosis (1) Acute and chronic respiratory failure with hypoxia Is this a current diagnosis for this admission?: YesPlan: Patient is much improved. He still requiring oxygen. Wean as tolerated. Continue neb treatments as needed. Patient had been on oxygen at home but was able to discontinue it recently. (2) Pneumonia Qualifiers: Pneumonia type: due to unspecified organism Laterality: bilateral Lung location: lower lobe of lung Qualified Code(s): J18.9 - Pneumonia, unspecified organism Plan: Continue Unasyn and Levaquin for atypical coverage. Patient's white blood cell count is resolving nicely. Gram-negative rods in the sputum turned out to be part of normal kiet. (3) COPD exacerbation Is this a current diagnosis for this admission?: YesPlan: Continue steroids for today. Change to every day dosing. Continue nebulizers. (4) Lung nodule Is this a current diagnosis for this admission?: YesPlan: Management as per pulmonology. (5) Bacteremia Plan: Blood cultures are positive viridans group strep. Repeat blood cultures pending. Continue Unasyn.
--- NOTE | 2017-02-27 22:13 | PROGRESS NOTE E ---
Progress Note NAME: CHAD LY : 1955 AGE: 61Y DATE: 02/27/2017 ROOM: 319 SUBJECTIVE: The patient is a 61-year-old male with a past medical history of COPD and severe emphysema status post bullectomy both upper lobes, history of nasal cancer status post radiation treatment, and nasal cancer resection, came in with severe COPD exacerbation, pneumonia and acute hypoxic respiratory failure. I was consulted because of pulmonary nodule involving the left lower lobe. Currently the patient is doing well, is feeling better, denies any increasing cough or sputum production or hemoptysis or chest pain. Slightly short of breath. No nausea, vomiting or diarrhea. OBJECTIVE: GENERAL: Patient is awake, alert and oriented x3. VITAL SIGNS: Temperature of 98.2, with a T-max of 98.2, heart rate of 77, blood pressure 115/77, oxygen saturation of 94% on 2 L nasal cannula. EYES: No jaundice or pallor. EARS/NOSE/MOUTH/THROAT: No ear drainage noted. No nasal discharge. HEAD/NECK: No scalp swelling or tenderness. Neck supple. CHEST/LUNGS: No wheezing. No rhonchi. No coarse crackles. CARDIOVASCULAR: S1, S2 distinct. Normal rate, regular rhythm. ABDOMEN: Flabby. Positive bowel sounds. Soft, nondistended, nontender. EXTREMITIES: No joint swelling, no cellulitis. LABORATORY DATA: CBC done today showed white count of 12.2, hemoglobin 12.2, hematocrit 37.4, platelet count 299. Segmented neutrophils of 86%. No bands noted. Chemistry done today showed sodium 144.3, potassium 4.1, chloride 103, CO2 is 32, BUN is 52, creatinine 0.67, glucose 105, calcium 9.2. Cultures done on February 22, 2017: Blood one bottle showed Streptococcus parasanguinis which is resistant to Levaquin and erythromycin and azithromycin but sensitive to penicillin, tetracycline and vancomycin. ASSESSMENT: 1. PNEUMONIA, COMMUNITY-ACQUIRED, BIBASILAR, LEFT GREATER THAN RIGHT. Currently appears to be improving with 1 blood culture showing 1 Streptococcus parasanguinis, possible contaminant. 2. Severe COPD in acute exacerbation. Currently not in acute exacerbation. 3. Pulmonary nodule left lower lobe superior segment, 10 mm, appears to be new on this recent chest CT scan compared to September [address] scan. Can be inflammatory in nature, infectious process, but malignancy cannot be completely excluded. We will plan to repeat the CAT scan probably in 8 weeks. 4. We will sign off today and recommend pulmonary clinic followup in 2 weeks following hospital discharge. 5. Recommend tapering off the IV Solu-Medrol to p.o. prednisone and taper slowly over time. 6. Blood culture organism appear to be sensitive to tetracycline and may consider discharging the patient on doxycycline for 2 weeks following hospital discharge. DICTATING PHYSICIAN: SHEREEN VIERA MD,ABDELRAHMAN,MPH [id number] PHY#: [id number] ID: [id number] JOB#: [id number] ACCT: [id number] cc: > MTDD
[2017-02-28] MEDS: AMPICILLIN SODIUM/SULBACTAM NA 1.5 GM in NORMAL SALINE 50 ML IV SCH ×4 (02:31→20:07)
[2017-02-28] MEDS: LANSOPRAZOLE 30 MG TAB.RAP.DR PO SCH ×2 (05:10→17:49)
[2017-02-28] MEDS: IPRATROPIUM/ALBUTEROL 0.5-2.5 MG/3 ML AMPUL NEB SCH ×3 (09:14→20:45)
[2017-02-28] MEDS ORDERED: METHYLPREDNISOLONE INJ 40 MG/1 ML SDV IV SCH (10:00)
[2017-02-28] MEDS: LEVOFLOXACIN 750 MG TABLET PO SCH (10:31)
[2017-02-28] MEDS: FLUTICASONE/SALMETEROL DISKUS 500-50 MCG/DOSE IH SCH ×2 (10:31→17:50)
[2017-02-28] MEDS: TIOTROPIUM BROMIDE DPI 5 CAP/KIT (18 MCG/CAP) IH SCH (10:32)
[2017-02-28] MEDS: ENOXAPARIN SODIUM INJ 40 MG/0.4 ML DISP.SYRIN SUBCUT SCH (10:32)
--- NOTE | 2017-02-28 12:13 | PDOC PROGRESS REPORT ---
Subjective Progress Note for:: 02/28/17 Subjective:: This is a follow-up visit for pneumonia. The patient was seen today currently has no complaints. He denies any chest pain or worsening shortness of breath. Physical Exam Vital Signs: Temp Pulse Resp BP Pulse Ox 97.7 F 70 20 137/87 H 97 02/28/17 08:01 02/28/17 08:01 02/28/17 08:01 02/28/17 08:01 02/28/17 08:01 Intake & Output 02/27/17 02/28/17 03/01/17 06:59 06:59 06:59 Intake Total 3115 1901 Output Total 1950 1200 Balance 1165 701 Weight 70.2 kg 70.6 kg Physical exam: Gen.: This is a well-developed well-nourished appearing white male resting in in a chair currently in no acute distress. Heart: Regular rate and rhythm no murmurs rubs or gallops. Lungs: Clear to auscultation bilaterally with equal rise and fall of chest. He continues on oxygen by nasal cannula. Abdomen: soft nontender nondistended Extremities: No clubbing cyanosis or edema. 1+ peripheral pulses. Neuro: Awake alert oriented cranial nerves grossly intact Results Laboratory Results: 02/27/17 04:23 02/27/17 04:23 02/23/17 02:45 Blood Blood Culture - Final NO GROWTH IN 5 DAYS Impressions: Chest X-Ray 02/22/17 18:10 IMPRESSION: COPD. NO ACUTE RADIOGRAPHIC FINDING IN THE CHEST. Chest/Abdomen CTA 02/22/17 21:21 IMPRESSION: Patchy consolidation is present in the both lower lobes, left greater than right. New 10 mm spiculated nodule in the medial basilar segment of the left lower lobe. No pulmonary emboli identified. Assessment & Plan - Diagnosis (1) Acute and chronic respiratory failure with hypoxia Is this a current diagnosis for this admission?: YesPlan: Patient is much improved. He still requiring oxygen. Wean as tolerated. Continue neb treatments as needed. Patient had been on oxygen at home but was able to discontinue it recently. (2) Pneumonia Qualifiers: Pneumonia type: due to unspecified organism Laterality: bilateral Lung location: lower lobe of lung Qualified Code(s): J18.9 - Pneumonia, unspecified organism Plan: Continue Unasyn and Levaquin for atypical coverage. Patient's white blood cell count is resolving nicely. Gram-negative rods in the sputum turned out to be part of normal kiet. (3) COPD exacerbation Is this a current diagnosis for this admission?: YesPlan: Continue steroids for today. Change to by mouth prednisone by the morning. Continue nebulizers. (4) Lung nodule Is this a current diagnosis for this admission?: YesPlan: Management as per pulmonology. (5) Bacteremia Plan: Blood cultures are positive viridans group strep. Repeat blood cultures pending. Eliminate early they are negative. Continue Unasyn. - Time Time Spent with patient: 15-24 minutes Anticipated discharge: Home - Inpatient Certification Medical Necessity: Need Close Monitoring Due to Risk of Patient Decompensation
[2017-03-01] MEDS: AMPICILLIN SODIUM/SULBACTAM NA 1.5 GM in NORMAL SALINE 50 ML IV SCH (02:22)
[2017-03-01 05:03] LABS: HEMOGLOBIN 12.4 g/dL (13.5-17.0); HGB HCT DIFFERENCE 0.2; MEAN CORPUSCULAR HEMOGLOBIN 27.5 pg (27.0-33.4); MEAN CORPUSCULAR HGB CONC 33.5 g/dL (32.0-36.0); MEAN CORPUSCULAR VOLUME 82 fl (80-97); RED CELL DISTRIBUTION WIDTH 14.7 % (11.5-14.0); WHITE BLOOD COUNT 8.9 10^3/uL (4.0-10.5)
[2017-03-01] MEDS: LANSOPRAZOLE 30 MG TAB.RAP.DR PO SCH (05:10)
[2017-03-01 05:26] LABS: BLOOD UREA NITROGEN 24 mg/dL (7-20); CALCIUM 8.5 mg/dL (8.4-10.2); CREATININE RESULT 0.68 mg/dL (0.52-1.25); GLUCOSE 84 mg/dL (75-110)
[2017-03-01 05:27] LABS: BAND NEUTROPHILS % (MANUAL) 1 % (3-5); BASOPHILS % (MANUAL) 0 % (0-2); EOSINOPHILS % (MANUAL) 2 % (0-6); LYMPHOCYTES % (MANUAL) 19 % (13-45); TOTAL CELLS COUNTED 100
[2017-03-01 05:28] LABS: ANISOCYTOSIS SLIGHT
[2017-03-01 05:31] LABS: OVALOCYTES SLIGHT; POIKILOCYTOSIS SLIGHT; POLYCHROMASIA SLIGHT; TARGET CELLS SLIGHT
[2017-03-01 05:33] LABS: TOXIC GRANULATION SLIGHT
[2017-03-01 05:47] LABS: ANION GAP 6 (5-19); CARBON DIOXIDE 34 mmol/L (22-30); CHLORIDE 100 mmol/L (98-107); POTASSIUM 3.7 mmol/L (3.6-5.0); SODIUM 139.6 mmol/L (137-145)
[2017-03-01 08:30] VITALS: BP 143/80
[2017-03-01] MEDS: IPRATROPIUM/ALBUTEROL 0.5-2.5 MG/3 ML AMPUL NEB SCH (08:33)
[2017-03-01] MEDS: LEVOFLOXACIN 750 MG TABLET PO SCH (09:46)
[2017-03-01] MEDS: FLUTICASONE/SALMETEROL DISKUS 500-50 MCG/DOSE IH SCH (09:48)
[2017-03-01] MEDS: ENOXAPARIN SODIUM INJ 40 MG/0.4 ML DISP.SYRIN SUBCUT SCH (09:49)
[2017-03-01] MEDS: TIOTROPIUM BROMIDE DPI 5 CAP/KIT (18 MCG/CAP) IH SCH (09:49)
[2017-03-01] MEDS ORDERED: AMOXICILLIN TR/POT CLAVULANATE 500-125 MG TAB PO SCH (10:00)
[2017-03-01] MEDS ORDERED: PREDNISONE 20 MG TABLET PO SCH (10:00)
--- NOTE | 2017-03-01 13:15 | PDOC DISCHARGE SUMMARY ---
General - Admit/Disc Date/PCP Admission Date/Primary Care Provider: 02/22/17 23:50 FILIBERTO AMANDA, DO Discharge Date: 03/01/17 - Discharge Diagnosis (1) Acute and chronic respiratory failure with hypoxia Is this a current diagnosis for this admission?: YesSummary: Resolved. Secondary to COPD exacerbation. (2) Pneumonia Summary: Continue Levaquin for another 7 days. (3) COPD exacerbation Is this a current diagnosis for this admission?: YesSummary: Continue prednisone taper as an outpatient. Various inhalers to include albuterol, Spiriva, Advair. (4) Lung nodule Is this a current diagnosis for this admission?: YesSummary: Follow with pulmonology for repeat CT scan as outpatient. (5) Bacteremia Summary: Continue Augmentin for strep bacteremia. - Additional Information Resuscitation Status: Full Code Discharge Diet: Regular Discharge Activity: Activity As Tolerated, Balance Activity w/Rest Home Medications: Tiotropium [place] [Spiriva Handihaler 5 Cap/Kit (18 Mcg/Cap)] 1 cap IH DAILY Albuterol Sulfate [Ventolin HFA MDI 18 GM] 2 puff IH Q4HP #0 11/27/14 Atorvastatin Calcium [Lipitor 40 mg Tablet] 40 mg PO QHS 02/23/17 Fluticasone/Salmeterol [Advair 500-50 Diskus 14 Dose/Diskus] 1 inh IH Q12 Montelukast Sodium [Singulair] 10 mg PO DAILY 02/23/17 Amox Tr/Potassium Clavulanate [Augmentin 875-125 mg Tablet] 1 tab PO BID #14 tablet 03/01/17 Guaifenesin [Robitussin Syrup 200 mg/10 ml Ud Cup] 200 mg PO Q4HP PRN udc 03/01 Levofloxacin [Levaquin 750 mg Tablet] 750 mg PO DAILY #7 tablet 03/01/17 Prednisone [Deltasone 20 mg Tablet] 40 mg PO ASDIR #15 tablet 03/01/17 History of Present Illness History of Present Illness: History of present illness as per Dr. Rodriguez the admitting physician. History of Present Illness Admission Date/PCP: 02/22/17 23:36 PCP Uncertain [place] Patient complains of: SOB History of Present Illness: CHAD LY is a 61 year old male, former smoker, with non-home O2 dependent COPD, on CPAP at night, who presents to the emergency room for evaluation of a less than 24-hour history of progressive difficulty breathing. Patient has been discussed with emergency room physician who evaluated the patient. Progressive shortness of breath, in particular with much of any exertion, despite using his rescue inhaler at home. Initially bilateral rib pain with coughing, but now pain is simply in his back, again, with coughing. Cough productive of some sputum. Per EMS, 81% saturation on room air. 93% non-rebreather; 98% after neb treatment. No fever chills, nausea vomiting. For short while, mildly hypotensive in the emergency room. However, pressures have normalized with IV fluid and remained stable. Patient breathing much more comfortably now, with confirmation by ER staff, patient himself, and son, who is present at his side with his approval. neither antibiotics nor hospitalization for the last 3 months. Many years since his last flu vaccination. Has had a Pneumovax. Hospitalized on our service February 18 through the 2014, with final diagnoses including acute on chronic hypoxic respiratory failure secondary to pneumonia and COPD exacerbation. History and physical and discharge summary have been reviewed. Hospital Course Hospital Course: Patient did well. He remained on oxygen hospital stay which was ultimately able to be weaned down and subsequently off. He was placed initially on IV Medrol. This was also weaned down and he was converted to by mouth prednisone. Generally the patient noted to have strep bacteremia. He was initially started on Unasyn and able to be converted to Augmentin. He also grew Escherichia coli in his sputum. Therefore, he continues on Levaquin. All antibiotics are due to stop 7 days. She continue prednisone taper to completion. He should follow with his primary care physician or his lsw within the next 7-10 days. Physical Exam Vital Signs: Temp Pulse Resp BP Pulse Ox 98.1 F 75 16 143/80 H 93 03/01/17 09:37 03/01/17 09:37 03/01/17 09:37 03/01/17 09:37 03/01/17 09:37 Intake & Output 02/28/17 03/01/17 03/02/17 06:59 06:59 06:59 Intake Total 1901 2115 355 Output Total 1200 2525 Balance 701 -410 355 Weight 70.6 kg 70.1 kg Results Laboratory Results: 03/01/17 04:40 03/01/17 04:40 03/01/17 03/01/17 04:40 04:40 WBC 8.9 RBC 4.50 Hgb 12.4 L Hct 37.0 L MCV 82 MCH 27.5 MCHC 33.5 RDW 14.7 H Plt Count 261 Seg Neutrophils % Not Reportable Lymphocytes % Not Reportable Monocytes % Not Reportable Eosinophils % Not Reportable Basophils % Not Reportable Absolute Neutrophils Not Reportable Absolute Lymphocytes Not Reportable Absolute Monocytes Not Reportable Absolute Eosinophils Not Reportable Absolute Basophils Not Reportable Sodium 139.6 Potassium 3.7 Chloride 100 Carbon Dioxide 34 H Anion Gap 6 BUN 24 H Creatinine 0.68 Est GFR ( Amer) > 60 Est GFR (Non-Af Amer) > 60 Glucose 84 Calcium 8.5 Magnesium 2.0 Impressions: Chest X-Ray 02/22/17 18:10 IMPRESSION: COPD. NO ACUTE RADIOGRAPHIC FINDING IN THE CHEST. Chest/Abdomen CTA 02/22/17 21:21 IMPRESSION: Patchy consolidation is present in the both lower lobes, left greater than right. New 10 mm spiculated nodule in the medial basilar segment of the left lower lobe. No pulmonary emboli identified. Qualifiers PATEINT BEING DISCHARGED WITH ANY OF THE FOLLOWING DIAGNOSIS?: No
== END 2017-03-01 13:20 | disposition home or self-care (01) | DRG 190 ==
LOC: ER 15:01 → EH 23:36 → UNDOADMIN 23:36 → EH 23:50 → 3W 02-23 02:15
PROVIDERS: ADMIT Family Medicine; ATTEND Family Medicine
PROC: 5A09557 Assistance with Respiratory Ventilation, Greater than 96 Consecutive Hours, Continuous Positive Airway Pressure (ICD-10-PCS; principal; 2017-02-22)
DX: J44.0 Chronic obstructive pulmonary disease with (acute) lower respiratory infection (principal); J18.9 Pneumonia, unspecified organism; J96.22 Acute and chronic respiratory failure with hypercapnia; J96.21 Acute and chronic respiratory failure with hypoxia; R78.81 Bacteremia; J44.1 Chronic obstructive pulmonary disease with (acute) exacerbation; E78.5 Hyperlipidemia, unspecified; R91.8 Other nonspecific abnormal finding of lung field; R91.1 Solitary pulmonary nodule; M19.90 Unspecified osteoarthritis, unspecified site; B95.4 Other streptococcus as the cause of diseases classified elsewhere; Z85.818 Personal history of malignant neoplasm of other sites of lip, oral cavity, and pharynx; Z92.3 Personal history of irradiation; Z87.891 Personal history of nicotine dependence; Z90.49 Acquired absence of other specified parts of digestive tract; Z92.21 Personal history of antineoplastic chemotherapy; Z90.2 Acquired absence of lung [part of]; Z85.828 Personal history of other malignant neoplasm of skin; Z79.52 Long term (current) use of systemic steroids
CPT/HCPCS: 36415; 71010; 71275; 80048; 80053; 82550; 82553; 82803; 82962; 83735; 84484; 85025; 87040; 87070; 87077; 87186; 87205; 93005; 93010; 94640; 94660; 94799; 96360; 99291; J0295; J0692; J1650; J1956; J2920; J3490; J7030; J7512; J7620

== ENCOUNTER 2017-04-14 06:34 | Day surgery (SDC) | payer MEDICARE, MEDICAID ==
[2017-04-14 06:54] LABS: HEMATOCRIT 44.1 % (37.9-51.0); HEMOGLOBIN 14.4 g/dL (13.5-17.0); HGB HCT DIFFERENCE -0.9; MEAN CORPUSCULAR HEMOGLOBIN 27.3 pg (27.0-33.4); MEAN CORPUSCULAR HGB CONC 32.5 g/dL (32.0-36.0); MEAN CORPUSCULAR VOLUME 84 fl (80-97); RED BLOOD COUNT 5.26 10^6/uL (4.35-5.55); WHITE BLOOD COUNT 6.5 10^3/uL (4.0-10.5)
[2017-04-14] MEDS ORDERED: NALOXONE HCL INJ/PF 0.4 MG/1 ML SDV ONE (07:30)
[2017-04-14] MEDS ORDERED: GLYCOPYRROLATE INJ 0.4 MG/2 ML VIAL ONE (07:30)
[2017-04-14] MEDS ORDERED: ONDANSETRON HCL INJ/PF 4 MG/2 ML SDV ONE (07:30)
[2017-04-14] MEDS ORDERED: FENTANYL CITRATE INJ/PF 100 MCG/2 ML AMPUL ONE (07:31)
[2017-04-14] MEDS ORDERED: GLUCAGON,HUMAN RECOMB 1 MG INJ ONE (07:31)
[2017-04-14] MEDS ORDERED: EPINEPHRINE INJ 1 MG/10 ML DISP.SYRIN ONE (07:31)
[2017-04-14] MEDS ORDERED: FLUMAZENIL INJ 0.5 MG/5 ML VIAL IV ONE (07:31)
[2017-04-14] MEDS: MIDAZOLAM 2 MG/2 ML INJ ONE ×2 (11:19→11:24)
--- NOTE | 2017-04-14 12:05 | Operative Report ---
Operative Report DATE OF SURGERY: 04/14/17 PREOPERATIVE DIAGNOSIS: History of colon polyps POSTOPERATIVE DIAGNOSIS: Multiple colon and rectal polyps OPERATION: Colonoscopy with snare polypectomies of 7 polyps SURGEON: SHENA GOFF ANESTHESIA: Moderate Sedation TISSUE REMOVED OR ALTERED: 3 polyps at the transverse colon at the colo ileal anastomosis. 2 polyps at the distal transverse colon. Upper rectal polyp. Mid rectal polyp. COMPLICATIONS: None ESTIMATED BLOOD LOSS: Minimal INTRAOPERATIVE FINDINGS: 3 sessile half centimeter polyps at the transverse colon adjacent to the coloileal anastomosis. 2 sessile half centimeter polyp at the distal transverse colon. Half centimeter polyp sessile at the upper rectum. Half centimeter sessile polyp at the mid rectum. Diverticuli seen in the sigmoid colon. Well-healed colorectal anastomosis. Well-healed coloileal anastomosis. PROCEDURE: Informed consent was obtained. Patient was brought to the endoscopy suite. IV sedation with Versed and fentanyl was administered. Digital rectal exam revealed no palpable perianal masses. Endoscope was passed via the patient's anus it was fed to the transverse colon beyond the splenic flexure to the transverse colon ileal anastomosis. Ileum was intubated for about half a foot. Near the anastomosis there were 3 sessile polyps all measuring about half a centimeters each. Each of these polyps were removed using a snare polypectomy technique. At least 2 of these polyps were able to be retrieved for pathology. At the distal transverse colon there were 2 sessile polyps each measuring about half centimeters in size. Both of these polyps were snare polypectomy and the specimen was retrieved. Descending colon appeared normal sigmoid colon had diverticuli. The colorectal anastomosis appear well healed. At the upper rectum near the anastomosis there was 1/2 cm sessile polyp which was snare polypectomy and the specimen retrieved. There was another half centimeter sessile polyp at the mid rectum which was snare polypectomy and the specimen retrieved. Patient tolerated procedure well with no apparent complications Patient with history of adenomatous polyps status post partial colon resections in the past. Now with 7 polyps that were removed. Patient will need close endoscopic surveillance. I will follow-up with the patient with the biopsy results.
--- NOTE | 2017-04-14 12:06 | PDOC DISCHARGE SUMMARY ---
Discharge Summary (SDC) - Discharge Final Diagnosis: Multiple colon and rectal polyps. Date of Surgery: 04/14/17 Discharge Date: 04/14/17 Condition: Good Treatment or Instructions: Colonoscopy with multiple snare polypectomies. May discharge patient home when met discharge criteria. Follow-up with me in 2 weeks. Discharge Diet: Regular Discharge Activity: Activity As Tolerated Report the Following to Your Physician Immediately: Increase in Pain, Fever over 101 Degrees, Unusual Bleeding
[2017-04-14 12:51] VITALS: BP 116/83
== END 2017-04-14 12:50 | disposition home or self-care (01) ==
LOC: END 06:34
PROVIDERS: ATTEND Surgery
PROC: 0DBL8ZX Excision of Transverse Colon, Via Natural or Artificial Opening Endoscopic, Diagnostic (ICD-10-PCS; 2017-04-14)
PROC: 0DBP8ZX Excision of Rectum, Via Natural or Artificial Opening Endoscopic, Diagnostic (ICD-10-PCS; principal; 2017-04-14 09:45)
DX: Z86.010 Personal history of colon polyps (principal); D12.3 Benign neoplasm of transverse colon; D12.8 Benign neoplasm of rectum; K63.5 Polyp of colon; J44.9 Chronic obstructive pulmonary disease, unspecified; J98.3 Compensatory emphysema; Z85.22 Personal history of malignant neoplasm of nasal cavities, middle ear, and accessory sinuses; E78.00 Pure hypercholesterolemia, unspecified; Z87.891 Personal history of nicotine dependence; Z79.899 Other long term (current) drug therapy; Z79.51 Long term (current) use of inhaled steroids
CPT/HCPCS: 45385; 36415; 85027; 88305 ×2; J2250; J3010; J0171; J1610; J2310; J2405; J3490

== ENCOUNTER → 2017-06-05 | Outpatient (CLI) | payer MEDICARE, MEDICAID ==
[2017-06-05 08:16] LABS: ABSOLUTE BASOPHILS # (AUTO) 0.1 10^3/uL (0.0-0.2); ABSOLUTE EOSINOPHILS # (AUTO) 0.2 10^3/uL (0.0-0.6); ABSOLUTE LYMPHOCYTES (AUTO) 1.5 10^3/uL (0.5-4.7); ABSOLUTE MONOCYTES (AUTO) 0.6 10^3/uL (0.1-1.4); ABSOLUTE NEUT (AUTO) 3.8 10^3/uL (1.7-8.2); BASOPHILS % (AUTO) 0.8 % (0-2); EOSINOPHILS % (AUTO) 2.9 % (0-6); HEMATOCRIT 38.6 % (37.9-51.0); HEMOGLOBIN 12.9 g/dL (13.5-17.0); HGB HCT DIFFERENCE 0.1; MEAN CORPUSCULAR HEMOGLOBIN 28.6 pg (27.0-33.4); MEAN CORPUSCULAR HGB CONC 33.3 g/dL (32.0-36.0); MEAN CORPUSCULAR VOLUME 86 fl (80-97); MONOCYTES % (AUTO) 9.1 % (3-13); RED CELL DISTRIBUTION WIDTH 14.9 % (11.5-14.0); SEGMENTED NEUTROPHILS % (AUTO) 62.2 % (42-78); WHITE BLOOD COUNT 6.1 10^3/uL (4.0-10.5)
[2017-06-05 08:33] LABS: ALANINE AMINOTRANSFERASE 23 U/L (21-72); ALBUMIN 4.2 g/dL (3.5-5.0); ALKALINE PHOSPHATASE 75 U/L (38-126); ANION GAP 9 (5-19); ASPARTATE AMINO TRANSFERASE 18 U/L (17-59); BILIRUBIN,DIRECT 0.4 mg/dL (0.0-0.4); BILIRUBIN,TOTAL 0.6 mg/dL (0.2-1.3); BLOOD UREA NITROGEN 15 mg/dL (7-20); CALCIUM 9.4 mg/dL (8.4-10.2); CARBON DIOXIDE 30 mmol/L (22-30); CHLORIDE 101 mmol/L (98-107); CHOLESTEROL 139.83 mg/dL (0-200); CREATININE RESULT 0.74 mg/dL (0.52-1.25); Direct HDL 63 mg/dL (>40); GLUCOSE 96 mg/dL (75-110); POTASSIUM 4.1 mmol/L (3.6-5.0); SODIUM 139.8 mmol/L (137-145); TOTAL PROTEIN 7.2 g/dL (6.3-8.2); TRIGLYCERIDES 70 mg/dL (<150)
[2017-06-05 08:43] LABS: DIRECT LDL 61 mg/dL (<100)
== END ==
LOC: LAB 07:54
PROVIDERS: ATTEND Family Medicine Geriatric Medicine
DX: E78.5 Hyperlipidemia, unspecified (principal); J44.9 Chronic obstructive pulmonary disease, unspecified; E55.9 Vitamin D deficiency, unspecified; G47.33 Obstructive sleep apnea (adult) (pediatric); Z79.899 Other long term (current) drug therapy
CPT/HCPCS: 36415; 80053; 80061; 82306; 85025

== ENCOUNTER → 2017-12-07 | Outpatient (CLI) | payer MEDICARE, MEDICAID ==
[2017-12-07 10:58] LABS: ALANINE AMINOTRANSFERASE 23 U/L (21-72); ASPARTATE AMINO TRANSFERASE 21 U/L (17-59); TRIGLYCERIDES 78 mg/dL (<150)
[2017-12-07 11:09] LABS: DIRECT LDL 55 mg/dL (<100)
[2017-12-07 11:14] LABS: CHOLESTEROL 140.27 mg/dL (0-200)
== END ==
LOC: LAB 10:07
PROVIDERS: ATTEND Family Medicine Geriatric Medicine
DX: E78.5 Hyperlipidemia, unspecified (principal); Z79.899 Other long term (current) drug therapy
CPT/HCPCS: 36415; 80061; 84450; 84460

== ENCOUNTER → 2018-04-06 | Outpatient (CLI) | payer MEDICARE, MEDICAID ==
[2018-04-06 08:04] LABS: ABSOLUTE BASOPHILS # (AUTO) 0.1 10^3/uL (0.0-0.2); ABSOLUTE EOSINOPHILS # (AUTO) 0.2 10^3/uL (0.0-0.6); ABSOLUTE LYMPHOCYTES (AUTO) 1.5 10^3/uL (0.5-4.7); ABSOLUTE MONOCYTES (AUTO) 0.5 10^3/uL (0.1-1.4); ABSOLUTE NEUT (AUTO) 3.8 10^3/uL (1.7-8.2); BASOPHILS % (AUTO) 1.3 % (0-2); EOSINOPHILS % (AUTO) 2.7 % (0-6); HEMATOCRIT 38.8 % (37.9-51.0); HEMOGLOBIN 12.9 g/dL (13.5-17.0); LYMPHOCYTES % (AUTO) 24.4 % (13-45); MEAN CORPUSCULAR HEMOGLOBIN 28.2 pg (27.0-33.4); MEAN CORPUSCULAR HGB CONC 33.2 g/dL (32.0-36.0); MEAN CORPUSCULAR VOLUME 85 fl (80-97); MONOCYTES % (AUTO) 8.2 % (3-13); PLATELET COUNT 333 10^3/uL (150-450); RED BLOOD COUNT 4.57 10^6/uL (4.35-5.55); RED CELL DISTRIBUTION WIDTH 14.7 % (11.5-14.0); SEGMENTED NEUTROPHILS % (AUTO) 63.4 % (42-78); TOTAL CELLS COUNTED % (AUTO) 100 %
[2018-04-06 08:25] LABS: ANION GAP 11 (5-19); BLOOD UREA NITROGEN 12 mg/dL (7-20); CALCIUM 9.5 mg/dL (8.4-10.2); CARBON DIOXIDE 29 mmol/L (22-30); CHLORIDE 102 mmol/L (98-107); GLUCOSE 91 mg/dL (75-110); POTASSIUM 4.5 mmol/L (3.6-5.0)
== END ==
LOC: LAB 07:40
PROVIDERS: ATTEND Family Medicine Geriatric Medicine
DX: J44.9 Chronic obstructive pulmonary disease, unspecified (principal); C31.9 Malignant neoplasm of accessory sinus, unspecified; Z92.3 Personal history of irradiation; Z79.899 Other long term (current) drug therapy
CPT/HCPCS: 36415; 80048; 84443; 85025

== ENCOUNTER → 2018-07-30 | Outpatient (CLI) | payer MEDICARE, MEDICAID ==
[2018-07-30 10:45] LABS: ABSOLUTE EOSINOPHILS # (AUTO) 0.2 10^3/uL (0.0-0.6); ABSOLUTE LYMPHOCYTES (AUTO) 1.3 10^3/uL (0.5-4.7); ABSOLUTE MONOCYTES (AUTO) 0.7 10^3/uL (0.1-1.4); ABSOLUTE NEUT (AUTO) 4.7 10^3/uL (1.7-8.2); BASOPHILS % (AUTO) 0.6 % (0-2); EOSINOPHILS % (AUTO) 2.6 % (0-6); HEMATOCRIT 38.6 % (37.9-51.0); HEMOGLOBIN 13.1 g/dL (13.5-17.0); MEAN CORPUSCULAR HEMOGLOBIN 28.7 pg (27.0-33.4); MEAN CORPUSCULAR HGB CONC 33.9 g/dL (32.0-36.0); MEAN CORPUSCULAR VOLUME 85 fl (80-97); MONOCYTES % (AUTO) 9.9 % (3-13); PLATELET COUNT 303 10^3/uL (150-450); RED BLOOD COUNT 4.57 10^6/uL (4.35-5.55); RED CELL DISTRIBUTION WIDTH 14.7 % (11.5-14.0); SEGMENTED NEUTROPHILS % (AUTO) 67.9 % (42-78); TOTAL CELLS COUNTED % (AUTO) 100 %; WHITE BLOOD COUNT 6.9 10^3/uL (4.0-10.5)
[2018-07-30 11:18] LABS: ALANINE AMINOTRANSFERASE 34 U/L (21-72); CHOLESTEROL 130.45 mg/dL (0-200); TRIGLYCERIDES 73 mg/dL (<150)
[2018-07-30 11:29] LABS: DIRECT LDL 51 mg/dL (<100)
== END ==
LOC: LAB 10:04
PROVIDERS: ATTEND Family Medicine Geriatric Medicine
DX: E78.5 Hyperlipidemia, unspecified (principal); D64.9 Anemia, unspecified
CPT/HCPCS: 36415; 80061; 84460; 85025

== ENCOUNTER 2018-09-01 09:55 | Inpatient (IN) | payer MEDICARE, MEDICAID ==
[2018-09-01] MEDS ORDERED: ALBUTEROL SULFATE 0.083% NEB 2.5 MG/3 ML AMPUL NEB ONE (10:21)
[2018-09-01] MEDS ORDERED: IPRATROPIUM/ALBUTEROL 0.5-2.5 MG/3 ML AMPUL NEB ONE (10:21)
[2018-09-01] MEDS ORDERED: CEFTRIAXONE INJ 1000 MG VIAL IV ONE (10:22)
[2018-09-01] MEDS ORDERED: AZITHROMYCIN INJ 500 MG VIAL IV ONE (10:22)
[2018-09-01] MEDS ORDERED: NORMAL SALINE 1000 ML 1,000 ML IV ONE ×2 (10:26→12:24)
--- NOTE | 2018-09-01 10:26 | ER Document Report ---
ED General - General Chief Complaint: Respiratory Distress Stated Complaint: CHEST PAIN Time Seen by Provider: 09/01/18 09:58 TRAVEL OUTSIDE OF THE [place] IN LAST 30 DAYS: No - HPI Notes: Patient is a 63-year-old male that presents to the emergency department for chief complaint of chest pain and shortness of breath. Patient reports 6 days ago he started having a left-sided chest pain. The pain is worse with deep inspiration. It radiates around his left side to his left back. He denies any relieving factors to his pain. He reports fever and productive cough with thick mucosal sputum that started at the same time. He has been using his home nebulized treatments as well as Spiriva with minimal improvement. He did get his pneumonia vaccines as recommended. He denies any recent hospitalization. He has a history of bilateral lobectomies from severe COPD. Patient received Tylenol prior to arrival but was febrile at 101 per EMS. Past Medical History: COPD, hyperlipidemia, sinus cancer Past Surgical History: Bilateral partial lobectomies Social History: Quit tobacco 5 years ago. Denies drugs and alcohol Family History: Reviewed and noncontributory for presenting illness Allergies: Reviewed, see documented allergy list. REVIEW OF SYSTEMS: CONSTITUTIONAL : fever No chills No diaphoresis No recent illness EENT: No vision changes No congestion No sore throat CARDIOVASCULAR: chest pain No palpitations RESPIRATORY: shortness of breath cough difficulty breathing GASTROINTESTINAL: No abdominal pain No nausea No vomiting No diarrhea GENITOURINARY: No dysuria No hematuria No difficulty urinating MUSCULOSKELETAL: No back pain No leg pain No arm pain SKIN: No rashes No lesions LYMPHATIC: No swollen, enlarged glands. NEUROLOGICAL: No lightheadedness No headache No weakness No paresthesias PSYCHIATRIC: No anxiety No depression PHYSICAL EXAMINATION: Vital signs reviewed, nursing noted reviewed. GENERAL: Well-appearing, well-nourished and in mild acute distress. HEAD: Atraumatic, normocephalic. EYES: Eyes appear normal, extraocular movements intact, sclera anicteric, conjunctiva are normal. ENT: nares patent, oropharynx clear without exudates. Moist mucous membranes. NECK: Normal range of motion, supple without lymphadenopathy LUNGS: Diminished bilaterally, no rhonchi, wheezing, or rails. Pursed lip breathing with mild accessory muscle use. Speaking in partial sentences HEART: Tachycardic and rhythm without murmurs ABDOMEN: Soft, nontender, normoactive bowel sounds. No rebound, guarding, or rigidity. No masses appreciated. EXTREMITIES: Nontender, good range of motion, no pitting or edema. NEUROLOGICAL: No focal neurological deficits. Moves all extremities spontaneously Motor and sensory grossly intact on exam. PSYCH: Normal mood, normal affect. SKIN: Warm, Dry, normal turgor, no rashes or lesions noted on exposed skin - Related Data Allergies/Adverse Reactions: No Known Allergies Allergy (Verified 04/14/17 07:07) Past Medical History - Social History Smoking Status: Former Smoker Family History: None - Past Medical History Cardiac Medical History: Reports: Hx Hypercholesterolemia Denies: Hx Congestive Heart Failure, Hx Coronary Artery Disease, Hx DVT, Hx Heart Attack, Hx Hypertension, Hx Pulmonary Embolism Pulmonary Medical History: Reports: Hx Bronchitis, Hx COPD, Hx Pneumonia - february 2017, Hx Sleep Apnea - Questionable; possibly on CPAP for COPD issues. Denies: Hx Asthma Neurological Medical History: Denies: Hx Cerebrovascular Accident, Hx Seizures Endocrine Medical History: Denies: Hx Diabetes Mellitus Type 1, Hx Diabetes Mellitus Type 2, Hx Hyperthyroidism, Hx Hypothyroidism Malignancy Medical History: Denies Hx Lung Cancer, Reports Hx Skin Cancer GI Medical History: Denies: Hx Cirrhosis, Hx Gastroesophageal Reflux Disease, Hx Hepatitis Musculoskeletal Medical History: Reports Hx Arthritis Psychiatric Medical History: Denies: Hx Depression Infectious Medical History: Denies: Hx C-Diff, Hx Hepatitis, Hx MRSA Past Surgical History: Reports: Hx Abdominal Surgery, Hx Bowel Surgery, Other - Double lung reductions for COPD (2008); PEG tube insertion, since removed;. Denies: Hx Pacemaker - Immunizations Hx Diphtheria, Pertussis, Tetanus Vaccination: Yes - 2011 Hx Pneumococcal Vaccination: 10/19/09 Review of Systems - Review of Systems Notes: Dictated Physical Exam - Vital signs Vitals: Temp Pulse Resp BP Pulse Ox 99.9 F 92 12 95/62 L 97 09/01/18 10:00 09/01/18 10:00 09/01/18 10:00 09/01/18 10:00 09/01/18 10:00 - Notes Notes: Dictated Course - Re-evaluation Re-evalutation: 09/01/18 10:25 Vitals reviewed. Nursing notes reviewed. Patient is afebrile now but received Tylenol prior to arrival. He was febrile and is tachycardic therefore blood cultures obtained for likely sepsis. Patient given Rocephin and azithromycin for concern of community-acquired pneumonia. He was given albuterol and DuoNeb for shortness of breath. He is oxygenating well on room air. 09/01/18 13:17 After breathing treatments patient states he is feeling better. He is no longer pursed lip breathing but still conversationally dyspneic. His chest x- ray shows a left lobar pneumonia. Patient has an elevated lactate at 2.1 and is qualifying for sepsis criteria. Despite IV hydration his blood pressure has decreased while in the emergency room. He is now becoming hypotensive and qualifying for septic shock. he will be admitted to the ICU for IV antibiotics and further monitoring of his respiratory status and hypotension. I did attempt to obtain a CT angio chest to rule out underlying pulmonary embolism because of his pleuritic type pain and history of cancer. I was unable to obtain this study because of vascular access issues despite multiple attempts. D-dimer will be added and followed by admitting physician. Case was discussed with Bubba Antonio TALENT REP who accepted admission. Laboratory 09/01/18 09/01/18 09/01/18 10:54 10:54 10:54 WBC 10.3 RBC 4.50 Hgb 13.2 L Hct 38.4 MCV 85 MCH 29.2 MCHC 34.2 RDW 14.3 H Plt Count 221 Seg Neutrophils % 83.7 H Lymphocytes % 7.0 L Monocytes % 9.0 Eosinophils % 0.0 Basophils % 0.3 Absolute Neutrophils 8.6 H Absolute Lymphocytes 0.7 Absolute Monocytes 0.9 Absolute Eosinophils 0.0 Absolute Basophils 0.0 Sodium 136.6 L Potassium 4.0 Chloride 99 Carbon Dioxide 24 Anion Gap 14 BUN 24 H Creatinine 0.71 Est GFR ( Amer) > 60 Est GFR (Non-Af Amer) > 60 Glucose 133 H Lactic Acid Calcium 8.6 Total Bilirubin 0.4 Direct Bilirubin 0.2 Neonat Total Bilirubin Not Reportable Neonat Direct Bilirubin Not Reportable Neonat Indirect Bili Not Reportable AST 50 ALT 38 Alkaline Phosphatase 59 Troponin I < 0.012 Total Protein 6.1 L Albumin 3.3 L 09/01/18 10:54 WBC RBC Hgb Hct MCV MCH MCHC RDW Plt Count Seg Neutrophils % Lymphocytes % Monocytes % Eosinophils % Basophils % Absolute Neutrophils Absolute Lymphocytes Absolute Monocytes Absolute Eosinophils Absolute Basophils Sodium Potassium Chloride Carbon Dioxide Anion Gap BUN Creatinine Est GFR ( Amer) Est GFR (Non-Af Amer) Glucose Lactic Acid 2.1 Calcium Total Bilirubin Direct Bilirubin Neonat Total Bilirubin Neonat Direct Bilirubin Neonat Indirect Bili AST ALT Alkaline Phosphatase Troponin I Total Protein Albumin Chest X-Ray 09/01/18 09:59 IMPRESSION: Focal consolidation in the left lung. In the appropriate clinical setting this is consistent with pneumonia. Clinical correlation is needed. - Vital Signs Vital signs: Temp Pulse Resp BP Pulse Ox 99.9 F 92 17 82/61 L 99 09/01/18 10:00 09/01/18 10:00 09/01/18 13:10 09/01/18 11:57 09/01/18 13:10 - Laboratory Result Diagrams: 09/01/18 10:54 09/01/18 10:54 Laboratory results interpreted by me: 09/01/18 09/01/18 10:54 10:54 Hgb 13.2 L RDW 14.3 H Seg Neutrophils % 83.7 H Lymphocytes % 7.0 L Absolute Neutrophils 8.6 H Sodium 136.6 L BUN 24 H Glucose 133 H Total Protein 6.1 L Albumin 3.3 L - EKG Interpretation by Me Additional EKG results interpreted by me: 09/01/18 11:30 Interpreted by myself 1122: Normal sinus rhythm, rate 86, normal axis, no ectopy, no ST elevation, normal NE interval Critical Care Note - Critical Care Note Total time excluding time spent on procedures (mins): 35 Comments: septic shock. hemodynamic management with potential for cardiovascular collapse. Discharge - Discharge Clinical Impression: Septic shock Pneumonia Qualifiers: Pneumonia type: due to unspecified organism Laterality: left Lung location: upper lobe of lung Qualified Code(s): J18.1 - Lobar pneumonia, unspecified organism Chest pain Qualifiers: Chest pain type: unspecified Qualified Code(s): R07.9 - Chest pain, unspecified Condition: Stable Disposition: ADMITTED INPATIENT Admitting Provider: Hospitalist Unit Admitted: ICU
--- NOTE | 2018-09-01 10:44 | RADIOLOGY REPORT (SQ) ---
EXAM DESCRIPTION: CHEST SINGLE VIEW COMPLETED DATE/TIME: 09/01/2018 10:30 am REASON FOR STUDY: chest pain COMPARISON: 11/20/2015 EXAM PARAMETERS: NUMBER OF VIEWS: One view. TECHNIQUE: Single frontal radiographic view of the chest acquired. RADIATION DOSE: NA LIMITATIONS: None. FINDINGS: LUNGS AND PLEURA: Prior bilateral partial pneumonectomy. Focal airspace disease in the le ft upper lung - upper lobe or superior segment left lower lobe. There is a background of COPD. No e ffusions. MEDIASTINUM AND HILAR STRUCTURES: No masses. Contour normal. HEART AND VASCULAR STRUCTURES: Heart normal in size. Normal vasculature. BONES: No acute findings. HARDWARE: None in the chest. OTHER: No other significant finding. IMPRESSION: Focal consolidation in the left lung. In the appropriate clinical setting this is consi stent with pneumonia. Clinical correlation is needed. TECHNICAL DOCUMENTATION: JOB ID: [id number] [employer]- All Rights Reserved Reading location - IP/workstation name: [facility]
[2018-09-01 11:14] LABS: ABSOLUTE LYMPHOCYTES (AUTO) 0.7 10^3/uL (0.5-4.7); ABSOLUTE MONOCYTES (AUTO) 0.9 10^3/uL (0.1-1.4); ABSOLUTE NEUT (AUTO) 8.6 10^3/uL (1.7-8.2); BASOPHILS % (AUTO) 0.3 % (0-2); HEMATOCRIT 38.4 % (37.9-51.0); HEMOGLOBIN 13.2 g/dL (13.5-17.0); MEAN CORPUSCULAR HEMOGLOBIN 29.2 pg (27.0-33.4); MEAN CORPUSCULAR HGB CONC 34.2 g/dL (32.0-36.0); MEAN CORPUSCULAR VOLUME 85 fl (80-97); PLATELET COUNT 221 10^3/uL (150-450); RED CELL DISTRIBUTION WIDTH 14.3 % (11.5-14.0); SEGMENTED NEUTROPHILS % (AUTO) 83.7 % (42-78); TOTAL CELLS COUNTED % (AUTO) 100 %; WHITE BLOOD COUNT 10.3 10^3/uL (4.0-10.5)
[2018-09-01 11:28] LABS: ALANINE AMINOTRANSFERASE 38 U/L (21-72); ALBUMIN 3.3 g/dL (3.5-5.0); ALKALINE PHOSPHATASE 59 U/L (38-126); ANION GAP 14 (5-19); ASPARTATE AMINO TRANSFERASE 50 U/L (17-59); BILIRUBIN,DIRECT 0.2 mg/dL (0.0-0.4); BILIRUBIN,TOTAL 0.4 mg/dL (0.2-1.3); BLOOD UREA NITROGEN 24 mg/dL (7-20); CALCIUM 8.6 mg/dL (8.4-10.2); CARBON DIOXIDE 24 mmol/L (22-30); CHLORIDE 99 mmol/L (98-107); GLUCOSE 133 mg/dL (75-110); SODIUM 136.6 mmol/L (137-145); TOTAL PROTEIN 6.1 g/dL (6.3-8.2)
[2018-09-01] MEDS ORDERED: ACETAMINOPHEN 325 MG TABLET PO PRN (14:10)
[2018-09-01] MEDS ORDERED: ONDANSETRON 4 MG TAB.RAPDIS PO PRN (14:10)
[2018-09-01 14:47] LABS: APPEARANCE,URINE SLIGHTLY-CLOUDY; BILIRUBIN,URINE NEGATIVE (NEGATIVE); COLOR,URINE AMBER; GLUCOSE, URINE NEGATIVE (NEGATIVE); KETONES,URINE NEGATIVE (NEGATIVE); LEUKOCYTE ESTERASE,URINE NEGATIVE (NEGATIVE); NITRITE,URINE NEGATIVE (NEGATIVE); PROTEIN,URINE 100 mg/dL (NEGATIVE); URINE SPECIFIC GRAVITY 1.034; UROBILINOGEN,URINE NEGATIVE mg/dL (<2.0)
[2018-09-01 15:38] LABS: A TYPE INFLUENZA AG NEGATIVE (NEGATIVE); B INFLUENZA AG NEGATIVE (NEGATIVE)
[2018-09-01] MEDS: NORMAL SALINE 1000 ML 1,000 ML IV PRN (16:36)
[2018-09-01] MEDS: METHYLPREDNISOLONE INJ 40 MG/1 ML SDV IV SCH ×2 (16:37→21:15)
[2018-09-01] MEDS: DOCUSATE SODIUM 100 MG CAPSULE PO SCH (20:09)
[2018-09-01] MEDS: MONTELUKAST SODIUM 10 MG TABLET PO SCH (20:09)
[2018-09-01] MEDS: ATORVASTATIN CALCIUM 80 MG TABLET PO SCH (20:10)
[2018-09-01] MEDS: HEPARIN SOD (PORCINE) 5,000 UNIT/ML 1 ML SYRINGE SUBCUT SCH ×2 (21:13→21:19)
[2018-09-01] MEDS: FLUTICASONE/SALMETEROL DISKUS 500-50 MCG/DOSE IH SCH (21:15)
--- NOTE | 2018-09-01 21:53 | Operative Report ---
Operative Report DATE OF SURGERY: 09/01/18 PREOPERATIVE DIAGNOSIS: Pneumonia, critical need for venous access POSTOPERATIVE DIAGNOSIS: Same OPERATION: Left subclavian triple-lumen central venous catheter placement SURGEON: SHENA GOFF ANESTHESIA: Local TISSUE REMOVED OR ALTERED: None COMPLICATIONS: None ESTIMATED BLOOD LOSS: Minimal INTRAOPERATIVE FINDINGS: None PROCEDURE: Informed consent was obtained. Patient's left neck and chest was prepped and draped in usual sterile fashion. Local anesthetic was administered. The left subclavian vein was entered without difficulty. Guidewire was placed without resistance. Triple-lumen central venous catheter was placed via the Seldinger technique without difficulty. It withdrew blood and flushed easily. It was sutured in place and dressings were applied. Patient tolerated procedure well with no apparent complications. Stat portable chest x-ray was ordered.
--- NOTE | 2018-09-01 23:23 | RADIOLOGY REPORT (SQ) ---
EXAM DESCRIPTION: XR CHEST 1 VIEW COMPLETED DATE/TME: 09/01/2018 00:00 CLINICAL HISTORY: 63 years, Male, Status post central line COMPARISON: Prior chest x-ray from earlier on today's date NUMBER OF VIEWS: 1 TECHNIQUE: Frontal view the chest LIMITATIONS: None. FINDINGS: Heart size is normal. [id number] catheter with the tip in the SVC. No discrete pneumothorax. Post surgical changes of the right hemithorax with underlying emphysema. Nodular airspace opacity in the lateral left upper lobe. IMPRESSION: Tip of the Xeecfw-c-[id number] catheter in the SVC. Other findings are stable. No pneumothorax 2010 [employer]- All Rights Reserved
[2018-09-01 23:50] LABS: ARTERIAL BLOOD BASE EXCESS -0.6 mmol/L; ARTERIAL BLOOD FIO2 32%; ARTERIAL BLOOD HCO3 23.4 mmol/L (20-24); ARTERIAL BLOOD O2 SATURATION 98.2 % (94-98); ARTERIAL BLOOD PCO2 36.4 mmHg (35-45); ARTERIAL BLOOD PH 7.43 (7.35-7.45); ARTERIAL BLOOD PO2 112.6 mmHg (80-100); ARTERIAL BLOOD TOTAL CO2 24.5 mmol/L (23-27)
[2018-09-02] MEDS: NORMAL SALINE 1000 ML 1,000 ML IV PRN (01:41)
[2018-09-02] MEDS: METHYLPREDNISOLONE INJ 40 MG/1 ML SDV IV SCH ×3 (05:07→21:22)
[2018-09-02] MEDS: HEPARIN SOD (PORCINE) 5,000 UNIT/ML 1 ML SYRINGE SUBCUT SCH ×3 (05:07→21:22)
[2018-09-02 06:19] LABS: HEMATOCRIT 33.9 % (37.9-51.0); HEMOGLOBIN 11.6 g/dL (13.5-17.0); MEAN CORPUSCULAR HEMOGLOBIN 28.9 pg (27.0-33.4); MEAN CORPUSCULAR HGB CONC 34.1 g/dL (32.0-36.0); MEAN CORPUSCULAR VOLUME 85 fl (80-97); PLATELET COUNT 220 10^3/uL (150-450); RED BLOOD COUNT 4.01 10^6/uL (4.35-5.55); RED CELL DISTRIBUTION WIDTH 14.7 % (11.5-14.0); WHITE BLOOD COUNT 7.1 10^3/uL (4.0-10.5)
[2018-09-02 06:38] LABS: ANION GAP 11 (5-19); BLOOD UREA NITROGEN 13 mg/dL (7-20); CALCIUM 8.1 mg/dL (8.4-10.2); CARBON DIOXIDE 23 mmol/L (22-30); CHLORIDE 106 mmol/L (98-107); GLUCOSE 121 mg/dL (75-110); POTASSIUM 4.2 mmol/L (3.6-5.0)
[2018-09-02] MEDS ORDERED: (PENDING PHARMACY ID) (Tiotropium Bromide [Spiriva Respimat] 2 PUFF) IH SCH (08:00)
--- NOTE | 2018-09-02 08:39 | HISTORY AND PHYSICAL E ---
History and Physical NAME: CHAD LY : 1955 AGE: 63Y ADMITTED: 09/01/2018 ROOM: 315 PRIMARY CARE PROVIDER: Dr. Alex. OUTPATIENT CIGARETTE PACKING MACHINE OPERATOR: Aubrey Chiang M.D. CHIEF COMPLAINT: Shortness of breath. HISTORY OF PRESENT ILLNESS: The patient is a 63-year-old male with a past medical history of obstructive sleep apnea and chronic obstructive lung disease. The patient presented to the emergency department with a chief complaint of shortness of breath. According to the patient his symptoms started Thursday about 4 days ago, where he developed ever increasing work of breathing. The patient did have a strong cough and also developed an episode of nausea with vomiting. Additionally the patient states that he developed diarrhea during that time and had a loss of appetite. The patient stated that he continued to have ever increasing shortness of breath. He normally does not wear oxygen at home, however, he was noted to be 77% on room air when he presented to the emergency department. The patient underwent a chest x-ray which was suggestive of a left lower lobe pneumonia. CTA was obtained rule out pulmonary embolism and the patient was referred to the hospitalist for admission and management. While in the emergency department the patient was treated with nebulizers, Rocephin, Zithromax, and was referred to the hospitalist for admission and management. PAST MEDICAL HISTORY: 1. Not oxygen dependent chronic obstructive pulmonary disease. 2. Obstructive sleep apnea with CPAP use. 3. Hyperlipidemia. 4. History of nasal cancer, status post radiation in 2013. 5. Osteoarthritis. PAST SURGICAL HISTORY: 1. Double lung reductions for COPD in 2008. 2. PEG tube insertion and removal for cancer treatment. ALLERGIES: No known drug allergies. HOME MEDICATIONS: 1. Spiriva 1 puff inhalation q.a.m. 2. Singulair 10 mg p.o. at hour of sleep. 3. Advair 500/50 one puff inhalation q.12 hours. 4. Lipitor 80 mg p.o. at hour of sleep. 5. Ventolin 2.5 mg 1 neb t.i.d. p.r.n. SOCIAL HISTORY: The patient currently resides at home. 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 The patient does have a history of tobacco use, but quit smoking 5 years ago after approximately 45 pack years. The patient denies any alcohol use or illicit drug use. FAMILY MEDICAL HISTORY: The patient's mother is , uncertain of her cause of . The patient's father is of a GI bleed. The patient does have children who are healthy. Uncertain of the health status of his siblings. REVIEW OF SYSTEMS: CONSTITUTIONAL: The patient denies any dizziness, but admits to fevers, chills, and weakness. SKIN: The patient denies any diaphoresis, rashes, bruising, itching. HEENT: Denies any vision change, hearing loss, nasal drainage, or sore throat. No headache. CARDIOVASCULAR: Denies any chest pain, heart palpitations. RESPIRATORY: The patient denies any cough or sputum production. Does admit to dyspnea. GASTROINTESTINAL: The patient denies any diarrhea. The patient does admit to nausea and vomiting and loose stools since Thursday. No melena or hematochezia. GENITOURINARY: Denies any hematuria, polyuria, or dysuria. MUSCULOSKELETAL: Denies any acute joint pains. HEMATOLOGIC: Denies any eli bleeding, easy bruising. ENDOCRINE: The patient admits to weight loss. PSYCHIATRIC: Denies suicidal or homicidal ideation. NEUROLOGIC: No seizures, tremors, loss of consciousness. The rest of the review of the other organ systems is negative. PHYSICAL EXAMINATION: GENERAL: On examination the patient is a frail, chronically ill appearing, 63-year-old male who is awake, alert. He is oriented to person, place, time, and situation. He is verbal, conversational, does not appear to be in any acute distress. VITAL SIGNS: Temperature is 99.9, pulse 92, respirations 12, blood pressure is 100/82, Temp 100.7, oxygen saturation is 95% on 2 liters nasal cannula. SKIN: Warm and dry; no rash, he is not diaphoretic. HEENT: Pupils equal, round reactive to light and accommodation. Conjunctivae are pink. Sclerae are nonicteric. No mouth lesions. NECK: Supple. No JVD. No bruit, no thyromegaly. CARDIOVASCULAR: Heart is regular. No rub. CHEST: Diminished, expiratory wheezes noted in upper lung hua, symmetrical, unlabored. ABDOMEN: Thin, soft, nontender. EXTREMITIES: No clubbing, cyanosis, edema. PSYCHIATRIC: Appropriate affect, pleasant mood. DIAGNOSTICS: Lab values are as follows - Hematology obtained on 09/01/2018; WBC is 15.3, hemoglobin is 13.2, hematocrit 38.4, platelet count is 221,000. Chemistry obtained on 09/01/2018; sodium is 136, potassium 4.0, chloride is 99, carbon dioxide 24, BUN 24, creatinine 0.71, glucose 133. Lactic acid is 2.1. Calcium is 8.6, bilirubin is 0.4, AST 50, ALT 38, alk-phos 59. Troponin is 0.012. Total protein 2.1, albumin 3.3. Urinalysis obtained on 09/01/2018; color juan, appearance slightly cloudy, pH 5.0, specific gravity is 1.034, protein is 100, glucose 99, ketones 99, occult blood negative, nitrite negative, bilirubin negative, urobilinogen negative, leukocyte esterases is negative, WBC is 4, RBC is 1, cast 3, mucus moderate, ascorbic acid is 40. Microbiology; blood cultures obtained on 09/01/2018 are pending. Urine culture obtained on 09/01/2018 is pending. Chest x-ray obtained on 09/01/2018 focal consolidation of the left lung. IMPRESSION AND PLAN: 1. Left upper lung community acquired pneumonia. Will cover the patient with Rocephin and Zithromax for now. Will hydrate the patient, encourage incentive spirometry, and flutter valve. 2. Chronic obstructive pulmonary disease. The patient does seem to have some wheezes. Will add steroids and follow. 3. Acute on chronic hypoxemic respiratory failure. Will titrate O2 accordingly as well as steroids. 4. Protein calorie malnourishment. Will liberalize the patient's diet and add a high calorie, high protein diet. 5. Hyperlipidemia. Will continue statin. CODE STATUS: The patient is a full code. DISPOSITION: Depending on the patient's symptomatology and diagnostic findings will reevaluate in the a.m. TIME SPENT: On this admission, including assessment, plan, physical examination, patient education, review of records is 50 minutes. DICTATING PHYSICIAN: SHERRI BRAXTON NP [id number] PHY#: [id number] ID: [id number] JOB#: [id number] ACCT: [id number] cc:ALBERTO LEYVA M.D. > MTDRichard
--- NOTE | 2018-09-02 08:57 | EKG REPORT ---
SEVERITY:- ABNORMAL ECG - SINUS RHYTHM RIGHT ATRIAL ABNORMALITY : Confirmed by: Sylwia Allan 02-Sep-2018 08:56:56
[2018-09-02] MEDS: DOCUSATE SODIUM 100 MG CAPSULE PO SCH ×2 (09:31→18:44)
[2018-09-02] MEDS: FLUTICASONE/SALMETEROL DISKUS 500-50 MCG/DOSE IH SCH ×2 (09:39→21:23)
[2018-09-02] MEDS: CEFTRIAXONE SODIUM 1,000 MG in DEXTROSE 5%-WATER 50 ML IV SCH (09:40)
[2018-09-02] MEDS: AZITHROMYCIN 500 MG in DEXTROSE 5%-WATER 250 ML IV SCH (09:41)
[2018-09-02] MEDS ORDERED: CEFTRIAXONE 1 GM/D5W RTU 1 GM/50 ML RTUPB IV SCH (10:00)
[2018-09-02] MEDS: ALBUTEROL SULFATE 0.083% NEB 2.5 MG/3 ML AMPUL NEB PRN (10:32)
--- NOTE | 2018-09-02 10:37 | PROGRESS NOTE E ---
Progress Note NAME: CHAD LY : 1955 AGE: 63Y DATE: 09/02/2018 ROOM: 315 SUBJECTIVE: The patient is sitting up at the side of the bed. He states that he feels better today in comparison to yesterday. Is complaining of having some crusty eyelids in the morning. The patient, himself, denies any nausea, vomiting. His appetite has picked up a little bit. No diarrhea, shortness of breath, dizziness, chest pain, no fevers, chills. He is afebrile. Blood pressure has been in good range and patient has not voiced any other concerns at this time. REVIEW OF SYSTEMS: The rest of the review of systems is negative. MEDICATIONS: Medications have been reviewed. OBJECTIVE: GENERAL: The patient is a 63-year-old male who is awake, alert, and oriented to person, place, time, and situation. He is verbal, conversational, and does not appear to be in any acute distress. VITAL SIGNS: Temperature 97.5, pulse 70, respirations 13, blood pressure 95/66, oxygen saturation 97% on room air. SKIN: Warm and dry. No rashes. Not diaphoretic. HEENT: Pupils equal, round, and reactive to light and accommodation. The patient does have some redness of both upper and bottom eyelids, evidence of chronic digital trauma. Mucous membranes are moist. CVS: Patient has normal sinus rhythm. CHEST: Diminished but rhonchorus breath sounds throughout, symmetrical, unlabored. ABDOMEN: Nondistended. EXTREMITIES: There is no edema. PSYCHIATRIC: Appropriate affect, pleasant mood. DIAGNOSTICS: Lab values are as follows: Hematology obtained on 09/02/2018: WBC 7.1, hemoglobin 11.6, hematocrit 32.9, platelet count 220,000. Chemistry obtained on 09/02/2018: Sodium 140, potassium 4.2, chloride 106, carbon dioxide 23, BUN 13, creatinine 0.38, glucose 121, calcium 8.1, magnesium 2.0. ASSESSMENT AND PLAN: 1. Left upper lobe community acquired pneumonia. The patient actually has rhonchorus lung sounds throughout. We will go ahead and give him some Mucinex today, as with hydration these have loosened. We will continue with Rocephin, Zithromax, incentive spirometry, and add flutter valve. The patient does have CTA pending. 2. Chronic obstructive pulmonary disease exacerbation. The patient had some wheezes yesterday. Responded nicely to steroids. We will continue 1 more day and follow. 3. Acute on chronic hypoxemic respiratory failure. Will continue to titrate O2. The patient has responded well thus far. 4. Protein calorie malnourishment. I have liberalize the patient's diet to include high-calorie, high-protein foods. 5. Hyperlipidemia. Continue statin. 6. Dehydration. Will hydrate the patient and follow. DISPOSITION: The patient is a FULL CODE. Depending on the patient's symptomatology and diagnostic findings, will reevaluate in the a.m. Time spent on this followup including assessment, plan, physical examination, patient education, and review of records is 25 minutes. DICTATING PHYSICIAN: SHERRI BRAXTON NP [id number] PHY#: [id number] ID: [id number] JOB#: [id number] ACCT: [id number] cc: > MTDD
--- NOTE | 2018-09-02 11:44 | RADIOLOGY REPORT (SQ) ---
EXAM DESCRIPTION: CTA CHEST COMPLETED DATE/TIME: 09/02/2018 11:20 am REASON FOR STUDY: chest pain COMPARISON: 02/22/2017 TECHNIQUE: CT scan of the chest performed using helical scanning technique with dynamic intravenous contrast injection. Images reviewed with lung, soft tissue and bone windows. Reconstructed coronal and sagittal MPR images reviewed. Additional 3 dimensional post-processing performed to develop Maximal Intensity Projection images (AR P). All images stored on PACS. All CT scanners at this facility use dose modulation, iterative reconstruction, and/or weight based d osing when appropriate to reduce radiation dose to as low as reasonably achievable (ALARA). [facility]: Dose Right [facility]: CareDose [facility]: Dose Right [facility]: Teradose 4D [facility]: [email or web address] CONTRAST TYPE AND DOSE: contrast/concentration: Isovue 350.00 mg/ml; Total Contrast Delivered: 67.0 ml; Total Saline Delivered: 80.0 ml Contrast bolus optimized for the pulmonary arteries. Not diagnostic for the aorta. RENAL FUNCTION: GFR > 60. RADIATION DOSE: CT Rad equipment meets quality standard of care and radiation dose reduction techniq ues were employed. CTDIvol: 14.3 - 19.8 mGy. DLP: 633 mGy-cm. . LIMITATIONS: None. FINDINGS: LUNGS AND PLEURA: Centrilobular and paraseptal emphysema. Increasing consolidation in the left lower lobe. No effusions. AORTA AND GREAT VESSELS: No aneurysm. Contrast bolus not optimized for the aorta. HEART: No pericardial effusion. Stable coronary artery calcifications. PULMONARY ARTERIES: No emboli visualized in the main pulmonary arteries or the segmental branches. HILAR AND MEDIASTINAL STRUCTURES: No identified masses or abnormal nodes. HARDWARE: Left-sided central line tip in the SVC. UPPER ABDOMEN: No acute findings. Limited exam. THYROID AND OTHER SOFT TISSUES: No masses. No adenopathy. BONES: No acute findings. 3D MIPS: Confirm above findings. OTHER: No other significant finding. IMPRESSION: 1. No PE. 2. COPD. Increasing consolidation in the left lower lobe. Differential is infection versus malignan cy. COMMENT: Quality ID # [id number]: Final reports with documentation of one or more dose reduction techniques (e.g., Automated exposure control, adjustment of the mA and/or kV according to patient size, use of iterative reconstruction technique) TECHNICAL DOCUMENTATION: JOB ID: [id number]- All Rights Reserved Reading location - IP/workstation name: [email or web address]
[2018-09-02] MEDS: POLYMYXIN B SULFATE/TMP OPH SOLN 10 ML OU SCH ×4 (15:00→21:21)
[2018-09-02] MEDS: ATORVASTATIN CALCIUM 80 MG TABLET PO SCH (18:53)
[2018-09-02] MEDS: MONTELUKAST SODIUM 10 MG TABLET PO SCH (18:53)
[2018-09-02] MEDS: GUAIFENESIN 600 MG TABLET.SA PO SCH ×2 (18:55→21:23)
[2018-09-03] MEDS: POLYMYXIN B SULFATE/TMP OPH SOLN 10 ML OU SCH ×8 (03:00→21:04)
[2018-09-03] MEDS: HEPARIN SOD (PORCINE) 5,000 UNIT/ML 1 ML SYRINGE SUBCUT SCH ×3 (05:13→21:07)
[2018-09-03] MEDS: METHYLPREDNISOLONE INJ 40 MG/1 ML SDV IV SCH (05:14)
[2018-09-03] MEDS: NORMAL SALINE 1000 ML 1,000 ML IV PRN (05:15)
[2018-09-03 05:46] LABS: ANION GAP 8 (5-19); BLOOD UREA NITROGEN 11 mg/dL (7-20); CALCIUM 7.8 mg/dL (8.4-10.2); CARBON DIOXIDE 27 mmol/L (22-30); CHLORIDE 109 mmol/L (98-107); GLUCOSE 120 mg/dL (75-110); POTASSIUM 3.8 mmol/L (3.6-5.0); SODIUM 143.6 mmol/L (137-145)
[2018-09-03] MEDS ORDERED: (PENDING PHARMACY ID) (Tiotropium Bromide [Spiriva Respimat] 2 PUFF) IH SCH (08:00)
[2018-09-03] MEDS: ALBUTEROL SULFATE 0.083% NEB 2.5 MG/3 ML AMPUL NEB PRN (08:35)
--- NOTE | 2018-09-03 08:46 | PROGRESS NOTE E ---
Progress Note NAME: CHAD LY : 1955 AGE: 63Y DATE: 09/03/2018 ROOM: 315 SUBJECTIVE: The patient is currently sitting up in bed. He states that he feels better today, much better in comparison to when he came in. No reported episodes of vomiting nor diarrhea. The patient's appetite has improved as well. The patient has been able to get up and ambulate to the bathroom without significant issue. The patient also states that his scratchy eyes have improved. The patient does not voice any other concerns at this time. REVIEW OF SYSTEMS: The rest of the review of systems is negative. MEDICATIONS: Medications have been reviewed. OBJECTIVE: GENERAL: The patient is a 63-year-old male who is awake, alert, and oriented to person, place, time, and situation. He is verbal, conversational, does not appear to be in any acute distress. VITAL SIGNS: As follows: Temperature is 97.8, pulse 71, respirations 22, blood pressure is 109/64, oxygen saturation 100% on 2.5 L nasal cannula. SKIN: Warm and dry. No rash, not diaphoretic. HEENT: Pupils equal, round, and reactive to light and accommodation. Conjunctivae pink. There is no evidence of JVP. CARDIOVASCULAR: Heart is in normal sinus rhythm on the monitor. CHEST: The patient does have rhonchorous breath sounds in left lung field, overall diminished, symmetrical, though mildly labored. ABDOMEN: Thin, nondistended. PSYCHIATRIC: Appropriate affect. Pleasant mood. DIAGNOSTICS: Lab values are as follows. Hematology obtained on 09/03/2018: WBC is 7.1, hemoglobin is 33.9, platelet count is 223,000. Chemistry obtained on 09/03/2018: Sodium is 142, potassium 3.8, chloride 109, carbon dioxide 27, BUN 11, creatinine 0.48, glucose 120, calcium 7.8, magnesium is 1.9. IMPRESSION AND PLAN: 1. LEFT LOWER LOBE COMMUNITY-ACQUIRED PNEUMONIA. The patient actually has improvement in his rhonchorous breath sounds. Will continue Mucinex and encourage incentive spirometry as well as a flutter valve. He has got CAP coverage with Rocephin and Zithromax. CTA does need to be repeated in 6 weeks. 2. CHRONIC OBSTRUCTIVE PULMONARY DISEASE. The patient has had some wheezing yesterday but overall this appears to have improved. He is responding nicely to steroids. Will transition to p.o. today. 3. ACUTE ON CHRONIC HYPOXEMIC RESPIRATORY FAILURE. Will continue to titrate the patient's O2. He has responded very well thus far. 4. PROTEIN CALORIE MALNOURISHMENT. Have liberalized diet with the high-calorie, high-protein foods. 5. HYPERLIPIDEMIA. Continue statin. 6. CONJUNCTIVITIS. Polymycin drops. DISPOSITION: THE PATIENT IS A FULL CODE. Pending the patient's symptomatology and diagnostic findings, will re-evaluate in the a.m. Time spent on this followup, including assessment/plan, physical examination, patient education, and review of records, is 25 minutes. DICTATING PHYSICIAN: SHERRI BRAXTON NP [id number] PHY#: [id number] ID: [id number] JOB#: [id number] ACCT: [id number] cc: > MTDD
[2018-09-03] MEDS: GUAIFENESIN 600 MG TABLET.SA PO SCH ×2 (09:59→21:07)
[2018-09-03] MEDS: PREDNISONE 20 MG TABLET PO SCH (10:00)
[2018-09-03] MEDS: FLUTICASONE/SALMETEROL DISKUS 500-50 MCG/DOSE IH SCH ×2 (10:01→21:00)
[2018-09-03] MEDS: CEFTRIAXONE SODIUM 1,000 MG in DEXTROSE 5%-WATER 50 ML IV SCH (10:02)
[2018-09-03] MEDS: AZITHROMYCIN 500 MG in DEXTROSE 5%-WATER 250 ML IV SCH (10:02)
[2018-09-03] MEDS: DOCUSATE SODIUM 100 MG CAPSULE PO SCH ×2 (10:03→17:35)
[2018-09-03] MEDS: MONTELUKAST SODIUM 10 MG TABLET PO SCH (17:35)
[2018-09-03] MEDS: ATORVASTATIN CALCIUM 80 MG TABLET PO SCH (17:35)
[2018-09-04] MEDS: POLYMYXIN B SULFATE/TMP OPH SOLN 10 ML OU SCH ×9 (00:50→23:30)
[2018-09-04] MEDS: HEPARIN SOD (PORCINE) 5,000 UNIT/ML 1 ML SYRINGE SUBCUT SCH ×3 (05:24→21:13)
[2018-09-04] MEDS: AZITHROMYCIN 250 MG TABLET PO SCH (09:22)
[2018-09-04] MEDS: PREDNISONE 20 MG TABLET PO SCH (09:22)
[2018-09-04] MEDS: FLUTICASONE/SALMETEROL DISKUS 500-50 MCG/DOSE IH SCH ×2 (09:23→21:11)
[2018-09-04] MEDS: GUAIFENESIN 600 MG TABLET.SA PO SCH ×2 (09:23→21:11)
[2018-09-04] MEDS: CEFTRIAXONE SODIUM 1,000 MG in DEXTROSE 5%-WATER 50 ML IV SCH (09:24)
[2018-09-04] MEDS: DOCUSATE SODIUM 100 MG CAPSULE PO SCH ×2 (09:24→18:05)
[2018-09-04] MEDS ORDERED: ALBUTEROL SULFATE 0.083% NEB 2.5 MG/3 ML AMPUL NEB PRN (10:56)
--- NOTE | 2018-09-04 17:07 | PROGRESS NOTE E ---
Progress Note NAME: CAHD LY : 1955 AGE: 63Y DATE: 09/04/2018 ROOM: 315 SUBJECTIVE: The patient is out of bed in the bedside chair. He states he feels much better today. Still gets dyspneic with activity. He denies any nausea, vomiting, or diarrhea. He has had a strong cough producing a good amount of sputum. The patient rested well overnight with CPAP, and the patient does not voice any other concerns at this time BRIEF HISTORY: The patient is a very pleasant 63-year-old male with a past medical history of head and neck cancer, status post radiation, who presented to the emergency department due to dyspnea. The patient was found to have a left lower lobe pneumonia and was referred to the hospitalist for admission and management. The patient has been covered for community-acquired pneumonia throughout his stay with Zithromax as well as Rocephin. The patient was covered with Mucinex and has responded well with flutter valve, and is producing a good amount of sputum. The patient's cultures have remained negative. CTA of the chest did reveal the left lower lobe consolidation. The patient will be ambulated today on room air to see how he tolerates this, and the patient has asked for 1 more day of inpatient stay due to his overall frailty. Will transition his medications to p.o. today. REVIEW OF SYSTEMS: The rest of the review of systems is negative. MEDICATIONS: Medication list reviewed. OBJECTIVE: GENERAL: The patient is a 63-year-old male who is awake and alert. He is oriented to person, place, time, and situation. He is verbal and conversational. Does not appear to be in any acute distress. VITAL SIGNS: Temperature 97.5, pulse 88, respirations 22, blood pressure 118/83, oxygen saturation 100% on 3 liters nasal cannula. SKIN: Warm and dry. No rash. Not diaphoretic. HEENT: Pupils equal, round, and reactive to light and accommodation. Conjunctivae pink. No evidence of JVP. CVS: Heart is regular. No murmur or rub. CHEST: The patient does have some rhonchorous lung sounds in the left lung. Diminished throughout. Symmetrical, unlabored. ABDOMEN: Soft, nontender, nondistended. He is thin. EXTREMITIES: No edema. PSYCHIATRIC: The patient is extremely pleasant. DIAGNOSTICS/LAB VALUES: Hematology done on 09/02/2018: WBC 7.1, hemoglobin 11.6, hematocrit 33.9, platelet count 222,000. Chemistry obtained on 09/03/2018: Sodium 143, potassium 3.8, chloride 109, carbon dioxide 27, BUN 11, creatinine 0.48, glucose 120, calcium 7.8, magnesium 1.9. ASSESSMENT AND PLAN: 1. Left lower lobe community-acquired pneumonia. The patient has had overall significant improvement of symptoms. Will transition Rocephin and Zithromax to p.o. cover as well as continued encouraged use of flutter valve. The patient is to have a repeat CTA in 6 weeks. 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 2. Chronic obstructive pulmonary disease. The patient had some wheezing yesterday, but today none at all. The patient has responded nicely to steroids. He was transitioned to p.o. The patient will ambulate today on room air and follow. 3. Acute on chronic hypoxemic respiratory failure. The patient appears to be returning to baseline. 4. Protein calorie malnourishment. Diet is high calorie, high protein diet. The patient's appetite is improving. 5. Hyperlipidemia. Continue statin. DISPOSITION: The patient is a full code. Depending on the patient's symptomatology and diagnostic findings, will reevaluate in the a.m. for discharge. The patient can be downgraded to a medical bed. Time spent on this followup including assessment, plan, physical examination, patient education, and review of records is 25 minutes. DICTATING PHYSICIAN: SHERRI BRAXTON NP [id number] PHY#: [id number] ID: [id number] JOB#: [id number] ACCT: [id number] cc: >
[2018-09-04] MEDS: ATORVASTATIN CALCIUM 80 MG TABLET PO SCH (18:04)
[2018-09-04] MEDS: MONTELUKAST SODIUM 10 MG TABLET PO SCH (18:04)
[2018-09-04] MEDS: CEFUROXIME 500 MG TABLET PO SCH (21:11)
[2018-09-05] MEDS: POLYMYXIN B SULFATE/TMP OPH SOLN 10 ML OU SCH ×4 (03:18→13:00)
[2018-09-05] MEDS: HEPARIN SOD (PORCINE) 5,000 UNIT/ML 1 ML SYRINGE SUBCUT SCH (05:35)
[2018-09-05] MEDS: AZITHROMYCIN 250 MG TABLET PO SCH (09:09)
[2018-09-05] MEDS: FLUTICASONE/SALMETEROL DISKUS 500-50 MCG/DOSE IH SCH (09:10)
[2018-09-05] MEDS: GUAIFENESIN 600 MG TABLET.SA PO SCH (09:10)
[2018-09-05] MEDS: CEFUROXIME 500 MG TABLET PO SCH (09:10)
[2018-09-05] MEDS: PREDNISONE 20 MG TABLET PO SCH (09:10)
[2018-09-05] MEDS: DOCUSATE SODIUM 100 MG CAPSULE PO SCH (09:11)
--- NOTE | 2018-09-05 12:35 | PDOC DISCHARGE SUMMARY ---
General - Admit/Disc Date/PCP Admission Date/Primary Care Provider: 09/01/18 13:55 CORNELL CLINE MD Discharge Date: 09/05/18 - Discharge Diagnosis (1) Left lower lobe pneumonia Is this a current diagnosis for this admission?: Yes Summary: Community acquired PNA. No species identified - Improved respiratory status, HDS, requiring O2 with exertion - At discharge, continue Azithro 500mg (1 day - 3 total days), Ceftix (5 days, - 7 total days), and Prednisone 60mg daily (3 days - 5 total days) - Ordered home O2, noted to have O2 sat of 80s on RA with exertion (needs 2-4L) - Follow up with PCP - Will need repeat imaging in 6 weeks to assess for improvement/resolution of PNA (2) COPD (chronic obstructive pulmonary disease) Is this a current diagnosis for this admission?: Yes Summary: Long standing - O2 status improved with steroids - Continue for 3 additional days per above (3) Acute and chronic respiratory failure with hypoxia Is this a current diagnosis for this admission?: Yes Summary: - Due to CAP - Home O2 ordered (4) Hyperkalemia Is this a current diagnosis for this admission?: Yes Summary: Continue statin - Additional Information Discharge Diet: Regular Discharge Activity: Activity As Tolerated, Balance Activity w/Rest Prescriptions: Azithromycin [Zithromax 250 mg Tablet] 500 mg PO DAILY 1 Days #1 tablet Cefuroxime Axetil [Ceftin 500 mg Tablet] 500 mg PO Q12 5 Days #10 tablet Prednisone [Deltasone 20 mg Tablet] 60 mg PO DAILY 2 Days #6 tablet Home Medications: Albuterol Sulfate [Ventolin 0.083% Neb 2.5 mg/3 mL Ampul] 1 vial NEB TIDP PRN Atorvastatin Calcium [Lipitor 80 mg Tablet] 80 mg PO QPM 09/01/18 Fluticasone/Salmeterol [Advair 500-50 Diskus 14 Dose/Diskus] 1 puff IH Q12 09/01 Montelukast Sodium [Singulair 10 mg Tablet] 10 mg PO QPM 09/01/18 Tiotropium [place] [Spiriva Respimat] 2 puff IH QAM 09/01/18 Azithromycin [Zithromax 250 mg Tablet] 500 mg PO DAILY 1 Days #1 tablet Cefuroxime Axetil [Ceftin 500 mg Tablet] 500 mg PO Q12 5 Days #10 tablet Prednisone [Deltasone 20 mg Tablet] 60 mg PO DAILY 2 Days #6 tablet 09/05/18 History of Present Illness Patient complains of: Dyspnea History of Present Illness: CHAD LY is a 63 year old male who was admitted for SOB and found to have LLL PNA. Improving over hospital course. Discharge on 09/05 in stable condition. Physical Exam Vital Signs: Temp Pulse Resp BP Pulse Ox 97.8 F 53 L 18 113/72 100 09/05/18 07:49 09/05/18 07:49 09/05/18 07:49 09/05/18 07:49 09/05/18 07:49 Intake & Output 09/04/18 09/05/18 09/06/18 06:59 06:59 06:59 Intake Total 2429 1175 Output Total 775 1100 Balance 1654 75 Weight 67.1 kg 66.4 kg General appearance: PRESENT: no acute distress, cooperative Head exam: PRESENT: atraumatic Mouth exam: PRESENT: moist Respiratory exam: PRESENT: unlabored, wheezes - Scattered, other - Diminished breath sounds at left base Cardiovascular exam: PRESENT: bradycardia - HR in 50s, +S1, +S2 GI/Abdominal exam: PRESENT: soft. ABSENT: tenderness Neurological exam: PRESENT: alert, awake, CN II-XII grossly intact Psychiatric exam: PRESENT: normal mood Results Laboratory Results: 09/02/18 05:30 09/03/18 05:20 Impressions: Chest X-Ray 09/01/18 09:59 IMPRESSION: Focal consolidation in the left lung. In the appropriate clinical setting this is consistent with pneumonia. Clinical correlation is needed. Chest/Abdomen CTA 09/01/18 11:35 IMPRESSION: 1. No PE. 2. COPD. Increasing consolidation in the left lower lobe. Differential is infection versus malignancy. Qualifiers - * PATIENT BEING DISCHARGED WITH ANY OF THE FOLLOWING DIAGNOSIS: No Plan Time Spent: Less than 30 Minutes
[2018-09-05 15:05] VITALS: BP 98/66
== END 2018-09-05 15:25 | disposition home or self-care (01) | DRG 189 ==
LOC: ER 09:55 → EH 13:55 → 3W 18:11
PROVIDERS: ADMIT Emergency Medicine; ATTEND Emergency Medicine
PROC: 02HV33Z Insertion of Infusion Device into Superior Vena Cava, Percutaneous Approach (ICD-10-PCS; principal; 2018-09-01)
PROC: 3E0234Z Introduction of Serum, Toxoid and Vaccine into Muscle, Percutaneous Approach (ICD-10-PCS; 2018-09-05)
DX: J96.21 Acute and chronic respiratory failure with hypoxia (principal); J18.9 Pneumonia, unspecified organism; E46 Unspecified protein-calorie malnutrition; J44.9 Chronic obstructive pulmonary disease, unspecified; E87.5 Hyperkalemia; E86.0 Dehydration; H10.9 Unspecified conjunctivitis; G47.33 Obstructive sleep apnea (adult) (pediatric); Z90.2 Acquired absence of lung [part of]; Z93.1 Gastrostomy status; Z87.891 Personal history of nicotine dependence; Z68.22 Body mass index [BMI] 22.0-22.9, adult; Z23 Encounter for immunization
CPT/HCPCS: 36415; 36600; 71045; 71275; 80048; 80053; 81001; 82803; 83605; 83735; 84484; 85025; 85027; 85379; 87040; 87086; 87804; 90686; 93005; 93010; 94640; 94660; 94667; 94668; 96361; 96365; 96367; 99291; J0456; J0696; J1644; J2920; J3490; J7030; J7060; J7512; J7620

== ENCOUNTER → 2018-10-06 | Outpatient (CLI) | payer MEDICARE, MEDICAID ==
--- NOTE | 2018-10-06 08:52 | RADIOLOGY REPORT (SQ) ---
EXAM DESCRIPTION: CHEST 2 VIEWS COMPLETED DATE/TIME: 10/06/2018 8:38 am REASON FOR STUDY: LOBAR PNEUMONIA, UNSPECIFIED ORGANISM (J18.1) COMPARISON: 09/01/2018 EXAM PARAMETERS: NUMBER OF VIEWS: two views TECHNIQUE: Digital Frontal and Lateral radiographic views of the chest acquired. RADIATION DOSE: NA LIMITATIONS: none FINDINGS: LUNGS AND PLEURA: Severe emphysematous change with hyperinflation and flattening of the bi lateral hemidiaphragm, unchanged. Improved aeration of the left upper lung with mild residual inters titial opacities. No new dense consolidation. No significant effusion. No pneumothorax. MEDIASTINUM AND HILAR STRUCTURES: Increased conspicuity the right suprahilar opacity. HEART AND VASCULAR STRUCTURES: Heart normal size. No evidence for failure. BONES: No acute findings. HARDWARE: None in the chest. OTHER: No other significant finding. IMPRESSION: Severe emphysematous change with improved but persistent patchy opacity in the left uppe r lung. TECHNICAL DOCUMENTATION: JOB ID: [id number] [employer]- All Rights Reserved Reading location - IP/workstation name: [email or web address]
== END ==
LOC: RAD 08:19
PROVIDERS: ATTEND Family Medicine Geriatric Medicine
DX: J18.1 Lobar pneumonia, unspecified organism (principal)
CPT/HCPCS: 71046

== ENCOUNTER → 2018-11-30 | Outpatient (CLI) | payer MEDICARE, MEDICAID ==
[2018-11-30 08:27] LABS: ABSOLUTE BASOPHILS # (AUTO) 0.1 10^3/uL (0.0-0.2); ABSOLUTE EOSINOPHILS # (AUTO) 0.1 10^3/uL (0.0-0.6); ABSOLUTE LYMPHOCYTES (AUTO) 1.3 10^3/uL (0.5-4.7); ABSOLUTE MONOCYTES (AUTO) 0.6 10^3/uL (0.1-1.4); ABSOLUTE NEUT (AUTO) 4.4 10^3/uL (1.7-8.2); BASOPHILS % (AUTO) 0.9 % (0-2); EOSINOPHILS % (AUTO) 2.2 % (0-6); HEMOGLOBIN 13.2 g/dL (13.5-17.0); LYMPHOCYTES % (AUTO) 19.7 % (13-45); MEAN CORPUSCULAR HEMOGLOBIN 28.7 pg (27.0-33.4); MEAN CORPUSCULAR HGB CONC 33.8 g/dL (32.0-36.0); MEAN CORPUSCULAR VOLUME 85 fl (80-97); MONOCYTES % (AUTO) 8.9 % (3-13); PLATELET COUNT 302 10^3/uL (150-450); RED BLOOD COUNT 4.59 10^6/uL (4.35-5.55); RED CELL DISTRIBUTION WIDTH 14.4 % (11.5-14.0); SEGMENTED NEUTROPHILS % (AUTO) 68.3 % (42-78); TOTAL CELLS COUNTED % (AUTO) 100 %; WHITE BLOOD COUNT 6.4 10^3/uL (4.0-10.5)
[2018-11-30 08:46] LABS: ANION GAP 11 (5-19); BLOOD UREA NITROGEN 12 mg/dL (7-20); CALCIUM 9.7 mg/dL (8.4-10.2); CARBON DIOXIDE 30 mmol/L (22-30); CHLORIDE 99 mmol/L (98-107); GLUCOSE 105 mg/dL (75-110); POTASSIUM 4.6 mmol/L (3.6-5.0); SODIUM 139.7 mmol/L (137-145)
== END ==
LOC: LAB 08:15
PROVIDERS: ATTEND Family Medicine Geriatric Medicine
DX: D64.9 Anemia, unspecified (principal); J44.9 Chronic obstructive pulmonary disease, unspecified; Z79.899 Other long term (current) drug therapy
CPT/HCPCS: 36415; 80048; 85025

== ENCOUNTER → 2019-04-11 | Outpatient (CLI) | payer MEDICARE, MEDICAID ==
[2019-04-11 09:44] LABS: ABSOLUTE EOSINOPHILS # (AUTO) 0.2 10^3/uL (0.0-0.6); ABSOLUTE MONOCYTES (AUTO) 0.5 10^3/uL (0.1-1.4); ABSOLUTE NEUT (AUTO) 3.6 10^3/uL (1.7-8.2); BASOPHILS % (AUTO) 0.8 % (0-2); EOSINOPHILS % (AUTO) 4.5 % (0-6); HEMATOCRIT 36.2 % (37.9-51.0); HEMOGLOBIN 12.2 g/dL (13.5-17.0); LYMPHOCYTES % (AUTO) 19.1 % (13-45); MEAN CORPUSCULAR HEMOGLOBIN 28.7 pg (27.0-33.4); MEAN CORPUSCULAR HGB CONC 33.8 g/dL (32.0-36.0); MEAN CORPUSCULAR VOLUME 85 fl (80-97); MONOCYTES % (AUTO) 8.6 % (3-13); PLATELET COUNT 298 10^3/uL (150-450); RED BLOOD COUNT 4.25 10^6/uL (4.35-5.55); RED CELL DISTRIBUTION WIDTH 15.3 % (11.5-14.0); TOTAL CELLS COUNTED % (AUTO) 100 %; WHITE BLOOD COUNT 5.4 10^3/uL (4.0-10.5)
[2019-04-11 10:13] LABS: ALANINE AMINOTRANSFERASE 27 U/L (21-72); TRIGLYCERIDES 79 mg/dL (<150)
[2019-04-11 10:24] LABS: DIRECT LDL 67 mg/dL (<100)
== END ==
LOC: OD 08:34
PROVIDERS: ATTEND Family Medicine Geriatric Medicine
DX: C30.0 Malignant neoplasm of nasal cavity (principal); E78.5 Hyperlipidemia, unspecified; D64.9 Anemia, unspecified; Z79.899 Other long term (current) drug therapy
CPT/HCPCS: 36415; 80061; 84460; 85025

== ENCOUNTER → 2019-06-21 | Outpatient (CLI) | payer MEDICARE, MEDICAID ==
--- NOTE | 2019-06-21 09:07 | RADIOLOGY REPORT (SQ) ---
EXAM DESCRIPTION: CT CHEST WITHOUT COMPLETED DATE/TIME: 06/21/2019 7:38 am REASON FOR STUDY: SOLITARY PULMONARY NODULE (R91.1) R91.1 SOLITARY PULMONARY NODULE COMPARISON: PET-CT 02/15/2019 CT chest 09/01/2018, 02/22/2017, 10/20/2014 TECHNIQUE: CT scan performed of the chest without intravenous contrast. Images reviewed with lung, soft tissue and bone windows. Reconstructed coronal and sagittal MPR images reviewed. All images st ored on PACS. All CT scanners at this facility use dose modulation, iterative reconstruction, and/or weight based d osing when appropriate to reduce radiation dose to as low as reasonably achievable (ALARA). [facility]: Dose Right [facility]: CareDose [facility]: Dose Right [facility]: Teradose 4D [facility]: HypePoints RADIATION DOSE: CT Rad equipment meets quality standard of care and radiation dose reduction techniq ues were employed. CTDIvol: 4.1 mGy. DLP: 172 mGy-cm. mGy. LIMITATIONS: No technical limitations. FINDINGS: LUNGS AND PLEURA: End-stage appearance of obstructive lung disease with markedly enlarged airspaces. Patient is post bilateral upper lobe wedge resections. There are multiple pulmonary nodules which are stable compared to PET-CT 02/15/2019 as follows: 2.5 x 1.5 cm spiculated area of dense consolidation medial right lower lobe axial image 44 2 x 1 cm spiculated bandlike scar in the left lower lobe axial image 45 8 mm nodule medial left lower lobe axial image 103 4 mm nodule periphery right lateral lung base axial image 72 No pleural effusions. No pneumothorax. No acute pneumonia HILAR AND MEDIASTINAL STRUCTURES: No identified masses or abnormal nodes. No obvious aneurysm. HEART AND VASCULAR STRUCTURES: No aneurysm. No pericardial effusion. UPPER ABDOMEN: No significant findings. Limited exam. THYROID AND OTHER SOFT TISSUES: No masses. No adenopathy. BONES: No significant finding. HARDWARE: None in the chest. OTHER: No other significant findings. IMPRESSION: Stable appearance compared to PET-CT 02/15/2019. TECHNICAL DOCUMENTATION: JOB ID: [id number] Quality ID # [id number]: Final reports with documentation of one or more dose reduction techniques (e.g., Au tomated exposure control, adjustment of the mA and/or kV according to patient size, use of iterative reconstruction technique) 2010 [employer]- All Rights Reserved Reading location - IP/workstation name: [email or web address]
== END ==
LOC: RAD 07:13
PROVIDERS: ATTEND Internal Medicine Critical Care Medicine
DX: R91.1 Solitary pulmonary nodule (principal); R91.8 Other nonspecific abnormal finding of lung field; J43.9 Emphysema, unspecified
CPT/HCPCS: 71250

== ENCOUNTER → 2019-07-04 | Outpatient (CLI) | payer MEDICARE, MEDICAID ==
[2019-07-04 09:39] LABS: ABSOLUTE EOSINOPHILS # (AUTO) 0.2 10^3/uL (0.0-0.6); ABSOLUTE LYMPHOCYTES (AUTO) 1.1 10^3/uL (0.5-4.7); ABSOLUTE MONOCYTES (AUTO) 0.7 10^3/uL (0.1-1.4); ABSOLUTE NEUT (AUTO) 4.1 10^3/uL (1.7-8.2); BASOPHILS % (AUTO) 0.7 % (0-2); EOSINOPHILS % (AUTO) 3.9 % (0-6); HEMATOCRIT 38.3 % (37.9-51.0); HEMOGLOBIN 12.8 g/dL (13.5-17.0); LYMPHOCYTES % (AUTO) 18.2 % (13-45); MEAN CORPUSCULAR HEMOGLOBIN 28.3 pg (27.0-33.4); MEAN CORPUSCULAR HGB CONC 33.4 g/dL (32.0-36.0); MEAN CORPUSCULAR VOLUME 85 fl (80-97); MONOCYTES % (AUTO) 11.3 % (3-13); PLATELET COUNT 314 10^3/uL (150-450); RED BLOOD COUNT 4.53 10^6/uL (4.35-5.55); RED CELL DISTRIBUTION WIDTH 13.9 % (11.5-14.0); SEGMENTED NEUTROPHILS % (AUTO) 65.9 % (42-78); TOTAL CELLS COUNTED % (AUTO) 100 %; WHITE BLOOD COUNT 6.3 10^3/uL (4.0-10.5)
[2019-07-04 10:26] LABS: ALBUMIN 4.2 g/dL (3.5-5.0); ALKALINE PHOSPHATASE 64 U/L (38-126); ANION GAP 8 (5-19); ASPARTATE AMINO TRANSFERASE 26 U/L (17-59); BILIRUBIN,DIRECT 0.2 mg/dL (0.0-0.4); BILIRUBIN,TOTAL 0.6 mg/dL (0.2-1.3); BLOOD UREA NITROGEN 12 mg/dL (7-20); CALCIUM 9.4 mg/dL (8.4-10.2); CARBON DIOXIDE 31 mmol/L (22-30); CHLORIDE 98 mmol/L (98-107); GLUCOSE 98 mg/dL (75-110); POTASSIUM 5.4 mmol/L (3.6-5.0)
== END ==
LOC: OD 08:18
PROVIDERS: ATTEND Family Medicine Geriatric Medicine
DX: D64.9 Anemia, unspecified (principal); Z79.899 Other long term (current) drug therapy
CPT/HCPCS: 36415; 80053; 85025

== ENCOUNTER → 2019-07-12 | Outpatient (CLI) | payer MEDICARE, MEDICAID | LOC: OD 08:16 | PROVIDERS: ATTEND Family Medicine Geriatric Medicine | DX: E87.5 Hyperkalemia (principal) | CPT/HCPCS: 36415; 84132 ==

== ENCOUNTER → 2019-12-30 | Outpatient (CLI) | payer MEDICARE, MEDICAID ==
[2019-12-30 10:23] LABS: ABSOLUTE BASOPHILS # (AUTO) 0.1 10^3/uL (0.0-0.2); ABSOLUTE EOSINOPHILS # (AUTO) 0.2 10^3/uL (0.0-0.6); ABSOLUTE LYMPHOCYTES (AUTO) 1.3 10^3/uL (0.5-4.7); ABSOLUTE MONOCYTES (AUTO) 0.6 10^3/uL (0.1-1.4); ABSOLUTE NEUT (AUTO) 3.8 10^3/uL (1.7-8.2); BASOPHILS % (AUTO) 1.2 % (0-2); EOSINOPHILS % (AUTO) 3.5 % (0-6); LYMPHOCYTES % (AUTO) 22.2 % (13-45); MEAN CORPUSCULAR HEMOGLOBIN 29.4 pg (27.0-33.4); MEAN CORPUSCULAR HGB CONC 34.2 g/dL (32.0-36.0); MEAN CORPUSCULAR VOLUME 86 fl (80-97); MONOCYTES % (AUTO) 10.2 % (3-13); PLATELET COUNT 286 10^3/uL (150-450); RED BLOOD COUNT 4.42 10^6/uL (4.35-5.55); RED CELL DISTRIBUTION WIDTH 14.6 % (11.5-14.0); SEGMENTED NEUTROPHILS % (AUTO) 62.9 % (42-78); TOTAL CELLS COUNTED % (AUTO) 100 %
[2019-12-30 10:52] LABS: CHOLESTEROL 128.07 mg/dL (0-200); TRIGLYCERIDES 61 mg/dL (<150)
[2019-12-30 11:02] LABS: DIRECT LDL 62 mg/dL (<100)
== END ==
LOC: OD 09:01
PROVIDERS: ATTEND Family Medicine Geriatric Medicine
DX: E78.5 Hyperlipidemia, unspecified (principal); D64.9 Anemia, unspecified; Z79.899 Other long term (current) drug therapy
CPT/HCPCS: 36415; 80061; 84460; 85025

== ENCOUNTER → 2020-04-30 | Outpatient (CLI) | payer MEDICARE, MEDICAID ==
[2020-04-30 09:59] LABS: ABSOLUTE BASOPHILS # (AUTO) 0.1 10^3/uL (0.0-0.2); ABSOLUTE EOSINOPHILS # (AUTO) 0.2 10^3/uL (0.0-0.6); ABSOLUTE LYMPHOCYTES (AUTO) 1.4 10^3/uL (0.5-4.7); ABSOLUTE MONOCYTES (AUTO) 0.7 10^3/uL (0.1-1.4); ABSOLUTE NEUT (AUTO) 3.6 10^3/uL (1.7-8.2); BASOPHILS % (AUTO) 1.2 % (0-2); EOSINOPHILS % (AUTO) 3.9 % (0-6); HEMATOCRIT 38.1 % (37.9-51.0); HEMOGLOBIN 13.1 g/dL (13.5-17.0); LYMPHOCYTES % (AUTO) 23.6 % (13-45); MEAN CORPUSCULAR HEMOGLOBIN 29.4 pg (27.0-33.4); MEAN CORPUSCULAR HGB CONC 34.5 g/dL (32.0-36.0); MEAN CORPUSCULAR VOLUME 85 fl (80-97); MONOCYTES % (AUTO) 11.3 % (3-13); PLATELET COUNT 301 10^3/uL (150-450); RED BLOOD COUNT 4.48 10^6/uL (4.35-5.55); RED CELL DISTRIBUTION WIDTH 14.1 % (11.5-14.0); TOTAL CELLS COUNTED % (AUTO) 100 %
[2020-04-30 10:10] LABS: ANION GAP 6 (5-19); BLOOD UREA NITROGEN 14 mg/dL (7-20); CALCIUM 9.1 mg/dL (8.4-10.2); CARBON DIOXIDE 30 mmol/L (22-30); CHLORIDE 99 mmol/L (98-107); GLUCOSE 99 mg/dL (75-110); POTASSIUM 4.9 mmol/L (3.6-5.0)
== END ==
LOC: OD 08:53
PROVIDERS: ATTEND Family Medicine Geriatric Medicine
DX: E87.5 Hyperkalemia (principal); D64.9 Anemia, unspecified; Z79.899 Other long term (current) drug therapy
CPT/HCPCS: 36415; 80048; 85025

== ENCOUNTER 2020-05-23 10:42 | Day surgery (SDC) | payer MEDICARE, MEDICAID ==
--- NOTE | 2020-05-18 23:01 | EKG REPORT ---
SEVERITY:- NORMAL ECG - SINUS RHYTHM : Confirmed by: Bridgett Davis MD 18-May-2020 23:00:15
[~2020-05-23 10:42] MED LIST: LACTATED RINGERS 1000 ML IV PRN; LIDOCAINE 2% INJ-PF (20 MG/ML) 10 ML AMPUL ONE; PROPOFOL INJ 200 MG/20 ML VIAL IV ONE
[2020-05-23 13:32] VITALS: BP 109/76
--- NOTE | 2020-05-23 14:20 | Discharge Summary ---
Discharge Summary (SDC) - Discharge Final Diagnosis: colon polyps Date of Surgery: 05/23/20 Discharge Date: 05/23/20 Condition: Stable Forms: EU Anesthesia D/C Instructions, Discharge POC-Surgical Service Treatment or Instructions: Discharge home. Diet as tolerated. Activity: Nonstrenuous. Follow-up with [place] [facility] in 7 to 10 days. Referrals: CORNELL CLINE MD [Primary Care Provider] - IESHA REZA MD [ACTIVE STAFF] - Discharge Diet: As Tolerated Respiratory Treatments at Home: Deep Breathing/Coughing Discharge Activity: Balance Activity w/Rest Home Care Assistance: None Needed Report the Following to Your Physician Immediately: Shortness of Breath, Nausea, Vomiting, Increase in Pain, Fever over 101 Degrees, Unusual Bleeding, IV Site Infection Signs
--- NOTE | 2020-05-23 14:23 | Operative Report ---
Nonrecallable Operative Report DATE OF SURGERY: 05/23/20 PREOPERATIVE DIAGNOSIS: History of colon polyps POSTOPERATIVE DIAGNOSIS: Multiple colon polyps OPERATION: 1. Colonoscopy to the ileocolic anastomosis. 2. Hot biopsy of multiple colon polyps (2 polyps at 40 cm, one polyp at 30 cm, 3 polyps at 25 cm) SURGEON: IESHA REZA ANESTHESIA: LMAC TISSUE REMOVED OR ALTERED: 1. Polyp at 40 cm x 2. 2. Polyp at 30 cm. 3. Polyp at 25 cm x 3 COMPLICATIONS: None apparent ESTIMATED BLOOD LOSS: Minimal PROCEDURE: Drains/implants: None. Procedure in detail: After informed consent was obtained, the patient was brought into the endoscopy suite and laid in the left lateral decubitus position. The endoscope was inserted into the rectum. It was passed up the rectum, sigmoid colon, descending colon, across the transverse colon, to the ileocolic anastomosis. The ileocolic anastomosis was intubated, and appeared normal in configuration. The scope was then withdrawn, circumferentially noting the mucosa. The prep was very good. The scope was withdrawn past the transverse colon, descending colon, and into the sigmoid colon. At 40 cm 2 small polyps were identified and removed via hot biopsy forcep (in their entirety). The scope was withdrawn to 30 cm, where another polyp was identified and removed in its entirety. The scope was withdrawn to 25 cm, where 3 small polyps were removed in their entirety (again via hot biopsy forcep). The scope was then withdrawn down into the rectum. A retroflexion maneuver was performed noting no significant internal hemorrhoids. The scope was straightened, air was suctioned from the rectum, the scope was removed, and the procedure was concluded. All sponge, instrument, and needle counts were correct. Condition: Stable.
== END 2020-05-23 13:35 | disposition home or self-care (01) ==
LOC: END 10:42
PROVIDERS: ATTEND Surgery
DX: Z12.11 Encounter for screening for malignant neoplasm of colon (principal); D12.6 Benign neoplasm of colon, unspecified; J98.3 Compensatory emphysema; Z86.010 Personal history of colon polyps; Z85.038 Personal history of other malignant neoplasm of large intestine; Z87.09 Personal history of other diseases of the respiratory system; Z79.899 Other long term (current) drug therapy
CPT/HCPCS: 45384; 93005; 88305 ×2; 93010; U0003; J2704; J3490; C9803; 811; 87635

== ENCOUNTER → 2020-07-30 | Outpatient (CLI) | payer MEDICARE, MEDICAID ==
[2020-07-30 09:54] LABS: ABSOLUTE BASOPHILS # (AUTO) 0.1 10^3/uL (0.0-0.2); ABSOLUTE EOSINOPHILS # (AUTO) 0.2 10^3/uL (0.0-0.6); ABSOLUTE LYMPHOCYTES (AUTO) 1.6 10^3/uL (0.5-4.7); ABSOLUTE MONOCYTES (AUTO) 0.6 10^3/uL (0.1-1.4); ABSOLUTE NEUT (AUTO) 4.4 10^3/uL (1.7-8.2); BASOPHILS % (AUTO) 0.9 % (0-2); HEMATOCRIT 36.9 % (37.9-51.0); HEMOGLOBIN 12.6 g/dL (13.5-17.0); LYMPHOCYTES % (AUTO) 22.7 % (13-45); MEAN CORPUSCULAR HEMOGLOBIN 28.9 pg (27.0-33.4); MEAN CORPUSCULAR HGB CONC 34.2 g/dL (32.0-36.0); MEAN CORPUSCULAR VOLUME 85 fl (80-97); PLATELET COUNT 296 10^3/uL (150-450); RED BLOOD COUNT 4.36 10^6/uL (4.35-5.55); RED CELL DISTRIBUTION WIDTH 14.2 % (11.5-14.0); SEGMENTED NEUTROPHILS % (AUTO) 64.4 % (42-78); TOTAL CELLS COUNTED % (AUTO) 100 %; WHITE BLOOD COUNT 6.8 10^3/uL (4.0-10.5)
[2020-07-30 10:18] LABS: ALKALINE PHOSPHATASE 73 U/L (38-126); ANION GAP 10 (5-19); ASPARTATE AMINO TRANSFERASE 29 U/L (17-59); BILIRUBIN,DIRECT 0.3 mg/dL (0.0-0.4); BILIRUBIN,TOTAL 0.7 mg/dL (0.2-1.3); BLOOD UREA NITROGEN 14 mg/dL (7-20); CARBON DIOXIDE 29 mmol/L (22-30); CHLORIDE 96 mmol/L (98-107); CHOLESTEROL 128.49 mg/dL (0-200); GLUCOSE 92 mg/dL (75-110); TOTAL PROTEIN 6.6 g/dL (6.3-8.2); TRIGLYCERIDES 61 mg/dL (<150)
[2020-07-30 10:31] LABS: DIRECT LDL 59 mg/dL (<100)
== END ==
LOC: OD 08:33
PROVIDERS: ATTEND Family Medicine Geriatric Medicine
DX: E78.5 Hyperlipidemia, unspecified (principal); Z79.899 Other long term (current) drug therapy
CPT/HCPCS: 36415; 80053; 80061; 85025

== ENCOUNTER 2020-10-26 09:43 | Inpatient (IN) | payer MEDICARE, MEDICAID ==
--- NOTE | 2020-10-26 10:19 | RADIOLOGY REPORT (SQ) ---
EXAM DESCRIPTION: CHEST SINGLE VIEW IMAGES COMPLETED DATE/TIME: 10/26/2020 10:08 am REASON FOR STUDY: sob COMPARISON: 10/06/2018 EXAM PARAMETERS: NUMBER OF VIEWS: One view. TECHNIQUE: Single frontal radiographic view of the chest acquired. RADIATION DOSE: NA LIMITATIONS: None. FINDINGS: LUNGS AND PLEURA: Bolus emphysematous change with biapical scarring. There is new patchy airspace disease within the left upper and lower lobes compared to prior dated 10/06/2018. Likely sm all left pleural effusion. No pneumothorax. MEDIASTINUM AND HILAR STRUCTURES: No masses. Contour normal. HEART AND VASCULAR STRUCTURES: Right suprahilar postsurgical change and consolidation, similar to mook or. BONES: No acute findings. HARDWARE: None in the chest. OTHER: No other significant finding. IMPRESSION: Severe emphysematous change with new left upper and lower lobe patchy opacities compatib le with pneumonia. Underlying lesion is not entirely excluded. Recommend follow-up to resolution. TECHNICAL DOCUMENTATION: JOB ID: [id number] 2010 [employer]- All Rights Reserved Reading location - IP/workstation name: [email or web address]
[2020-10-26] MEDS ORDERED: CEFTRIAXONE 1 GM/D5W RTU 1 GM/50 ML RTUPB IV ONE (10:38)
[2020-10-26] MEDS ORDERED: AZITHROMYCIN INJ 500 MG VIAL IV ONE (10:39)
--- NOTE | 2020-10-26 10:47 | ER Document Report ---
ED General - General Chief Complaint: Breathing Difficulty Stated Complaint: SHORTNESS OF BREATH/WEAKNESS Time Seen by Provider: 10/26/20 10:19 Primary Care Provider: CORNELL ALEX MD [Primary Care Provider] - Follow up as needed TRAVEL OUTSIDE OF THE [place] IN LAST 30 DAYS: No - HPI Notes: Chief complaint: Cough and shortness of breath History of present illness: 65-year-old male seen for evaluation of cough and shortness of breath. Patient states he has been ill for approximately 3 days with increasing shortness of breath and production of sputum which was initially white and is now turned yellow. He denies any hemoptysis. He denies any chest pain. He denies fever chills. He denies known exposure to Covid. EMS transported the patient here noting that he had an O2 sat at home on room air of 88%. They placed him on oxygen during transport and his saturation came up to 96%. They did a rapid Covid screening during transport and they report this is negative. Patient has been a heavy cigarette smoker in the past but quit smoking 7 years ago. He has a previous history of severe COPD and has previously had bilateral lung reduction surgery performed by Dr. Eddy Fuentes at [facility]. He uses albuterol on a as needed basis via nebulizer at home. He uses 2 L of nasal O2 as needed. Also uses nocturnal CPAP. Patient is followed locally by Dr. Alex. - Related Data Allergies/Adverse Reactions: No Known Allergies Allergy (Verified 05/23/20 11:00) Home Medications: advair. atorvastatin. monoket. spiriva Past Medical History - General Information source: Patient, Emergency Med Personnel, [facility] Records - Social History Smoking Status: Former Smoker Frequency of alcohol use: None Drug Abuse: None Lives with: Alone Family History: None, Reviewed & Not Pertinent - Past Medical History Cardiac Medical History: Reports: Hx Hypercholesterolemia Denies: Hx Congestive Heart Failure, Hx Coronary Artery Disease, Hx DVT, Hx Heart Attack, Hx Hypertension, Hx Pulmonary Embolism Pulmonary Medical History: Reports: Hx Bronchitis, Hx COPD, Hx Pneumonia - february 2017, Hx Sleep Apnea - Questionable; possibly on CPAP for COPD issues. 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 Neurological Medical History: Denies: Hx Cerebrovascular Accident, Hx Seizures Endocrine Medical History: Denies: Hx Diabetes Mellitus Type 1, Hx Diabetes Mellitus Type 2, Hx Hyperthyroidism, Hx Hypothyroidism Renal/ Medical History: Denies: Hx Peritoneal Dialysis Malignancy Medical History: Denies Hx Lung Cancer, Reports Hx Skin Cancer GI Medical History: Denies: Hx Cirrhosis, Hx Gastroesophageal Reflux Disease, Hx Hepatitis Musculoskeletal Medical History: Reports Hx Arthritis Psychiatric Medical History: Denies: Hx Depression Infectious Medical History: Denies: Hx C-Diff, Hx Hepatitis, Hx MRSA Past Surgical History: Reports: Hx Abdominal Surgery, Hx Bowel Surgery, Other - Double lung reductions for COPD (2008); PEG tube insertion, since removed;. Denies: Hx Pacemaker - Immunizations Hx Diphtheria, Pertussis, Tetanus Vaccination: Yes - 2011 Hx Pneumococcal Vaccination: 10/19/09 Review of Systems - Review of Systems Notes: Constitutional: Negative for fever. HENT: Negative for sore throat. Eyes: Negative for visual changes. Cardiovascular: Negative for chest pain. Respiratory: As per HPI. Gastrointestinal: Negative for abdominal pain, vomiting or diarrhea. Genitourinary: Negative for dysuria. Musculoskeletal: Negative for back pain. Skin: Negative for rash. Neurological: Negative for headaches, weakness or numbness. 10 point ROS negative except as marked above and in HPI. Physical Exam - Vital signs Vitals: Resp BP 20 113/83 10/26/20 09:49 10/26/20 09:49 - Notes Notes: GENERAL: Chronically ill appearing elderly man is visibly dyspneic on oxygen. SKIN: Good turgor no rashes. HEAD: Normocephalic atraumatic. EYES: Bilateral arcus senilis. PERRLA. EOMI. Conjunctivae and sclerae clear. EARS: CANALS AND TMS CLEAR. NOSE: CLEAR. MOUTH: Moist mucosa. Good dentition. No stridor or edema. No drooling. NECK: Supple. No masses or thyromegaly. No adenopathy. Carotids 2+ without bruits. No JVD. BACK: Symmetrical without tenderness. CHEST: Tachypneic with mild use of accessory muscles. Increased AP diameter chest. Scattered rhonchi bilaterally. HEART: Regular rhythm. No murmur gallop or rub. ABDOMEN: Soft nontender without masses, organomegaly or rebound. Bowel sounds normally active. No bruits. GENITALIA: Deferred. EXTREMITIES: Trace bilateral pretibial edema. No calf tenderness. Cap refill less than 1.5 seconds. Dorsalis pedis and posterior tibial pulses 3+ and symmetrical. NEUROLOGICAL: GCS 15. Alert and oriented x3. Fluent speech. Cranial nerves II through XII intact. Sensorimotor and cerebellar normal. Normal tone. PSYCHIATRIC: Appropriate affect. Course - Re-evaluation Re-evalutation: 10/26/20 17:30 This gentleman has very advanced pulmonary emphysema and has had bilateral lung reduction surgery. He presents now with what appears to be community-acquired pneumonia. Covid testing is negative. He has a 17,000 white count. He is got increased oxygen requirement but is been stabilized on 4 L nasal O2 and has a satisfactory blood gas with this with no significant CO2 retention. Blood cultures were drawn. He is gotten IV Rocephin and azithromycin. He had a terrible looking chest x-ray which appears to be in large measure due to chronic emphysematous changes and scarring of both lungs with superimposed infiltrates. I got a CTA of the chest he has no evidence of pulmonary embolus. Case has been discussed with Dr. Tom who is the admitting attending for the hospitalist service and he will take this man to a telemetry bed. - Vital Signs Vital signs: Temp Pulse Resp BP Pulse Ox 98.4 F 34 H 106/78 97 10/26/20 09:54 10/26/20 11:00 10/26/20 10:00 10/26/20 11:00 - Laboratory Results Result Diagrams: 10/26/20 11:15 10/26/20 11:15 Laboratory Results Interpreted: 10/26/20 10/26/20 10/26/20 11:15 11:15 11:15 WBC 17.8 H Hgb 13.0 L RDW 14.1 H Plt Count 546 H Lymph % (Auto) 7.1 L Absolute Neuts (auto) 14.9 H Seg Neutrophils % 83.6 H ABG pO2 ABG HCO3 Sodium 133.9 L Chloride 94 L Carbon Dioxide 31 H Creatine Kinase 22 L NT-Pro-B Natriuret Pep 786 H Albumin 3.0 L Urine Protein Urine Ketones Urine Urobilinogen 10/26/20 10/26/20 11:50 12:54 WBC Hgb RDW Plt Count Lymph % (Auto) Absolute Neuts (auto) Seg Neutrophils % ABG pO2 75.3 L ABG HCO3 24.2 H Sodium Chloride Carbon Dioxide Creatine Kinase NT-Pro-B Natriuret Pep Albumin Urine Protein 30 H Urine Ketones 20 H Urine Urobilinogen 2.0 H Critical Laboratory Results Reviewed: Yes Attending or Supervising Physician who Reviewed Labs: GIOVANNA ESTRADA Radiology Results Radiology Results Interpreted: 10/26/20 10:53 Chest X-Ray 10/26/20 09:55 IMPRESSION: Severe emphysematous change with new left upper and lower lobe patchy opacities compatible with pneumonia. Underlying lesion is not entirely excluded. Recommend follow-up to resolution. Critical Radiology Results Reviewed: Yes Attending or Supervising Physician who Reviewed Radiology: GIOVANNA ESTRADA EKG Interpretation by Me Additional EKG results interpreted by me: 10/26/20 11:22 Twelve-lead EKG reviewed by me contemporaneously: 1054 hrs. Indication for study: Dyspnea Rhythm: Normal sinus Rate: 96 Intervals: Normal intervals QRS axis: +[address]/T wave changes: None Comparison with prior tracing: No significant interval change since prior study 05/18/2020 Interpretation: Normal sinus rhythm Discharge - Discharge Clinical Impression: Community acquired pneumonia Qualifiers: Laterality: unspecified laterality Qualified Code(s): J18.9 - Pneumonia, unspecified organism COPD (chronic obstructive pulmonary disease) Qualifiers: COPD type: COPD with acute exacerbation Qualified Code(s): J44.1 - Chronic obstructive pulmonary disease with (acute) exacerbation Condition: Good Disposition: ADMITTED INPATIENT Admitting Provider: Vaishali (Hospitalist) Unit Admitted: Telemetry Referrals: CORNELL ALEX MD [Primary Care Provider] - Follow up as needed
[2020-10-26 11:51] LABS: ABSOLUTE BASOPHILS # (AUTO) 0.2 10^3/uL (0.0-0.2); ABSOLUTE EOSINOPHILS # (AUTO) 0.2 10^3/uL (0.0-0.6); ABSOLUTE LYMPHOCYTES (AUTO) 1.3 10^3/uL (0.5-4.7); ABSOLUTE MONOCYTES (AUTO) 1.3 10^3/uL (0.1-1.4); ABSOLUTE NEUT (AUTO) 14.9 10^3/uL (1.7-8.2); BASOPHILS % (AUTO) 0.9 % (0-2); HEMATOCRIT 38.8 % (37.9-51.0); LYMPHOCYTES % (AUTO) 7.1 % (13-45); MEAN CORPUSCULAR HGB CONC 33.4 g/dL (32.0-36.0); MEAN CORPUSCULAR VOLUME 81 fl (80-97); MONOCYTES % (AUTO) 7.4 % (3-13); PLATELET COUNT 546 10^3/uL (150-450); RED BLOOD COUNT 4.79 10^6/uL (4.35-5.55); RED CELL DISTRIBUTION WIDTH 14.1 % (11.5-14.0); SEGMENTED NEUTROPHILS % (AUTO) 83.6 % (42-78); TOTAL CELLS COUNTED % (AUTO) 100 %; WHITE BLOOD COUNT 17.8 10^3/uL (4.0-10.5)
[2020-10-26 12:07] LABS: ARTERIAL BLOOD BASE EXCESS 0.2 mmol/L; ARTERIAL BLOOD H2CO3 1.11 mmol/L (1.05-1.35); ARTERIAL BLOOD HCO3 24.2 mmol/L (20-24); ARTERIAL BLOOD O2 SATURATION 95.6 % (94-98); ARTERIAL BLOOD PCO2 36.9 mmHg (35-45); ARTERIAL BLOOD PH 7.43 (7.35-7.45); ARTERIAL BLOOD PO2 75.3 mmHg (80-100); ARTERIAL BLOOD TOTAL CO2 25.3 mmol/L (23-27)
[2020-10-26 12:08] LABS: ARTERIAL BLOOD FIO2 32%
[2020-10-26 12:13] LABS: ALKALINE PHOSPHATASE 125 U/L (38-126); ANION GAP 9 (5-19); ASPARTATE AMINO TRANSFERASE 43 U/L (17-59); BILIRUBIN,DIRECT 0.3 mg/dL (0.0-0.4); BILIRUBIN,TOTAL 0.7 mg/dL (0.2-1.3); BLOOD UREA NITROGEN 12 mg/dL (7-20); CALCIUM 8.7 mg/dL (8.4-10.2); CARBON DIOXIDE 31 mmol/L (22-30); CHLORIDE 94 mmol/L (98-107); CREATINE KINASE 22 U/L (55-170); GLUCOSE 87 mg/dL (75-110); POTASSIUM 4.2 mmol/L (3.6-5.0); TOTAL PROTEIN 6.6 g/dL (6.3-8.2)
[2020-10-26 12:15] LABS: ALCOHOL < 10 mg/dL (NONE DETECTED)
[2020-10-26 12:24] LABS: NT PRO BNP 786 pg/mL (<125)
[2020-10-26 12:25] LABS: CREATINE KINASE MB < 0.22 ng/mL (<4.55); TROPONIN I < 0.012 ng/mL
[2020-10-26 13:15] LABS: APPEARANCE,URINE SLIGHTLY-CLOUDY; BILIRUBIN,URINE NEGATIVE (NEGATIVE); COLOR,URINE YELLOW; GLUCOSE, URINE NEGATIVE (NEGATIVE); KETONES,URINE 20 mg/dL (NEGATIVE); LEUKOCYTE ESTERASE,URINE NEGATIVE (NEGATIVE); NITRITE,URINE NEGATIVE (NEGATIVE); PROTEIN,URINE 30 mg/dL (NEGATIVE); URINE SPECIFIC GRAVITY 1.021
--- NOTE | 2020-10-26 16:32 | RADIOLOGY REPORT (SQ) ---
EXAM DESCRIPTION: CTA CHEST IMAGES COMPLETED DATE/TIME: 10/26/2020 4:15 pm REASON FOR STUDY: dyspnea COMPARISON: 06/21/2019 TECHNIQUE: CT scan of the chest performed using helical scanning technique with dynamic intravenous contrast injection. Images reviewed with lung, soft tissue and bone windows. Reconstructed coronal and sagittal MPR images reviewed. Additional 3 dimensional post-processing performed to develop Maximal Intensity Projection images (FL P). All images stored on PACS. All CT scanners at this facility use dose modulation, iterative reconstruction, and/or weight based d osing when appropriate to reduce radiation dose to as low as reasonably achievable (ALARA). [facility]: Dose Right [facility]: CareDose [facility]: Dose Right [facility]: Teradose 4D [facility]: Queue-it CONTRAST TYPE AND DOSE: contrast/concentration: Isovue 350.00 mmol/ml; Total Contrast Delivered: 52. 0 ml; Total Saline Delivered: 70.0 ml Contrast bolus adequate for pulmonary arteries and aorta. RENAL FUNCTION: Creatinine 0.58 RADIATION DOSE: CT Rad equipment meets quality standard of care and radiation dose reduction techniq ues were employed. CTDIvol: 9.9 - 14.3 mGy. DLP: 598 mGy-cm. . LIMITATIONS: None. FINDINGS: LUNGS AND PLEURA: Severe bilateral emphysematous change with multifocal bolus emphysema. There are new areas of patchy consolidation within the left upper and lower lobes compatible with sup erimposed pneumonia. Evidence of prior left upper lobe wedge resection. There are multiple pulmonar y nodules as previously described. For reference right paramedial irregular nodular opacity measures approximately 2.6 x 1.5 cm (series 4, image 40), previously 2.5 x 1.5 cm. Grossly stable periphera l right lower lobe nodule measuring 4 mm (series 4, image 70). Previously measured left lower lobe p ulmonary nodule measures 2.0 x 1.0 cm (series 4, image 41), previously 1.9 x 1.0 cm. AORTA AND GREAT VESSELS: No aneurysm. No dissection. HEART: Normal heart size. Trace pericardial effusion. Scattered coronary atherosclerosis. PULMONARY ARTERIES: No emboli visualized in the main pulmonary arteries or the segmental branches. HILAR AND MEDIASTINAL STRUCTURES: No identified masses or abnormal nodes. HARDWARE: Left upper lobe chain benjamin. UPPER ABDOMEN: No significant findings. Limited exam. Left renal cyst. THYROID AND OTHER SOFT TISSUES: Stable subcutaneous soft tissue nodule along the midline back, possib ly sebaceous cyst. BONES: No acute bony abnormality. No suspicious lytic or blastic osseous lesions. 3D MIPS: Confirm above findings. OTHER: No other significant finding. IMPRESSION: 1. No pulmonary embolus. 2. Severe emphysematous change with new patchy areas of consolidation throughout the left lung david tible superimposed pneumonia. 3. Multiple previously described pulmonary nodules with mild interval change as above. COMMENT: Quality ID # [id number]: Final reports with documentation of one or more dose reduction techniques (e.g., Automated exposure control, adjustment of the mA and/or kV according to patient size, use of iterative reconstruction technique) TECHNICAL DOCUMENTATION: JOB ID: [id number] 2010 [employer]- All Rights Reserved Reading location - IP/workstation name: [email or web address]
[2020-10-26] MEDS ORDERED: IPRATROPIUM/ALBUTEROL 0.5-2.5 MG/3 ML AMPUL NEB PRN (18:42)
[2020-10-26] MEDS ORDERED: ACETAMINOPHEN 325 MG TABLET PO PRN (18:42)
[2020-10-26] MEDS ORDERED: ALBUTEROL SULFATE 0.083% NEB 2.5 MG/3 ML AMPUL NEB PRN (18:42)
--- NOTE | 2020-10-26 19:23 | PDOC H&P ---
History of Present Illness Admission Date/PCP: 10/26/20 18:09 CORNELL CLINE MD Patient complains of: Increasing shortness of breath with decreased energy and decreased appetite History of Present Illness: CHAD LY is a 65 year old male with a history of severe bullous emphysema status post lung reduction surgery, COPD and hyperlipidemia presents with inc reasing shortness of breath over the last 4 to 5 days. He has an oxygen concentrator at home but has not needed it up until recently. He does use CPAP at night most likely due to avoid CO2 retention because of his severe chronic lung disease. He denies a productive cough. He denies fever or chills. He states that he has experienced decreasing energy with increased fatigue. He has lost multiple relatives over the last 12 months. His son reports that his sleeping has been very poor and the patient admits that his appetite has been quite poor. He likely has experienced weight loss but a recent weight was unknown. CT scan shows a diffuse left-sided pneumonia as well as his severe bullous emphysema. He exhibits barrel chested anatomy and has the expected decreased inspiratory volume. Past Medical History Cardiac Medical History: Reports: Hyperlipidema Denies: Congestive Heart Failure, Coronary Artery Disease, DVT, Myocardial Infarction, Hypertension, Pulmonary Embolism Pulmonary Medical History: Reports: Bronchitis, Chronic Obstructive Pulmonary Disease (COPD), Pneumonia - february 2017, Sleep Apnea - Questionable; possibly on CPAP for COPD issues. Denies: Asthma Neurological Medical History: Denies: Seizures Endocrine Medical History: Denies: Diabetes Mellitus Type 1, Diabetes Mellitus Type 2, Hyperthyroidism, Hypothyroidism Malignancy Medical History: Reports: Skin Cancer Denies: Lung Cancer GI Medical History: Denies: Cirrhosis, Gastroesophageal Reflux Disease, Hepatitis Musculoskeltal Medical History: Reports: Arthritis Psychiatric Medical History: Reports: Depression Hematology: Denies: Anemia Infectious Medical History: Denies: Clostridium Difficile, Methicillin-Resistant Staph Aureus Past Surgical History Past Surgical History: Reports: Other - Double lung reductions for COPD(2008); PEG tube since removed,Partial col Denies: Pacemaker Social History Lives with: Alone Smoking Status: Former Smoker Electronic Cigarette use?: No Frequency of Alcohol Use: Occasional Hx Recreational Drug Use: No Drugs: None Hx Prescription Drug Abuse: No - Advance Directive Resuscitation Status: Full Code Surrogate healthcare decision maker:: Patient's son Family History Family History: CAD, COPD, Malignancy Parental Family History Reviewed: Yes Children Family History Reviewed: Yes Sibling(s) Family History Reviewed.: Yes Medication/Allergy Home Medications: Albuterol Sulfate [Ventolin 0.083% Neb 2.5 mg/3 mL Ampul] 1 vial NEB TIDP PRN 1 11/01/17 Atorvastatin Calcium [Lipitor 80 mg Tablet] 80 mg PO QPM 09/01/18 Fluticasone/Salmeterol [Advair 500-50 Diskus 14 Dose/Diskus] 1 puff IH Q12 09/01/18 Montelukast Sodium [Singulair 10 mg Tablet] 10 mg PO QPM 09/01/18 Tiotropium [place] [Spiriva Respimat] 2 puff IH QAM 09/01/18 Allergies/Adverse Reactions: No Known Allergies Allergy (Verified 05/23/20 11:00) Review of Systems All systems: reviewed and no additional remarkable complaints except as stated Constitutional: PRESENT: anorexia Respiratory: PRESENT: dyspnea Gastrointestinal: PRESENT: constipation Psychiatric: PRESENT: depression Physical Exam Vital Signs: Temp Pulse Resp BP Pulse Ox 98.4 F 34 H 106/78 97 10/26/20 09:54 10/26/20 11:00 10/26/20 10:00 10/26/20 11:00 Intake & Output 10/25/20 10/26/20 10/27/20 06:59 06:59 06:59 Intake Total 300 Balance 300 Weight 63.5 kg General appearance: PRESENT: cooperative, mild distress, thin Head exam: PRESENT: atraumatic, normocephalic Eye exam: PRESENT: conjunctiva pink, EOMI, other - Status post blepharoplasty. ABSENT: scleral icterus Ear exam: PRESENT: normal external ear exam. ABSENT: bleeding Mouth exam: PRESENT: dry mucosa, tongue midline Teeth exam: PRESENT: other - Dentures upper and lower Neck exam: ABSENT: JVD, lymphadenopathy, tracheostomy Respiratory exam: PRESENT: decreased breath sounds - With limited inspiratory phase, prolonged expiratory phas, rhonchi - Left side, symmetrical, tachypnea, other - Barrel chested. ABSENT: accessory muscle use, rales Cardiovascular exam: PRESENT: RRR, +S1, +S2. ABSENT: bradycardia, diastolic murmur, irregular rhythm, systolic murmur, tachycardia GI/Abdominal exam: PRESENT: normal bowel sounds, soft. ABSENT: distended, guarding, tenderness Rectal exam: PRESENT: deferred Gentrourinary exam: ABSENT: indwelling catheter Extremities exam: PRESENT: pedal edema Musculoskeletal exam: PRESENT: normal inspection. ABSENT: deformity, dislocation Neurological exam: PRESENT: alert, awake, oriented to person, oriented to place, oriented to time, oriented to situation, CN II-XII grossly intact. ABSENT: altered Psychiatric exam: PRESENT: depressed. ABSENT: agitated, anxious Focused psych exam: ABSENT: delusional, paranoid, restlessness Skin exam: PRESENT: dry, normal color, warm. ABSENT: rash Results Laboratory Results: 10/26/20 11:15 10/26/20 11:15 10/26/20 10/26/20 10/26/20 11:15 11:15 11:50 WBC 17.8 H RBC 4.79 Hgb 13.0 L Hct 38.8 MCV 81 MCH 27.0 MCHC 33.4 RDW 14.1 H Plt Count 546 H Seg Neutrophils % 83.6 H Carbonic Acid 1.11 HCO3/H2CO3 Ratio 21:1 ABG pH 7.43 ABG pCO2 36.9 ABG pO2 75.3 L ABG HCO3 24.2 H ABG O2 Saturation 95.6 ABG Base Excess 0.2 FiO2 32% Sodium 133.9 L Potassium 4.2 Chloride 94 L Carbon Dioxide 31 H Anion Gap 9 BUN 12 Creatinine 0.58 Est GFR ( Amer) > 60 Glucose 87 Calcium 8.7 Total Bilirubin 0.7 AST 43 Alkaline Phosphatase 125 Total Protein 6.6 Albumin 3.0 L Urine Color Urine Appearance Urine pH Ur Specific [place] Urine Protein Urine Glucose (UA) Urine Ketones Urine Blood Urine Nitrite Ur Leukocyte Esterase Urine WBC (Auto) Urine RBC (Auto) 10/26/20 12:54 WBC RBC Hgb Hct MCV MCH MCHC RDW Plt Count Seg Neutrophils % Carbonic Acid HCO3/H2CO3 Ratio ABG pH ABG pCO2 ABG pO2 ABG HCO3 ABG O2 Saturation ABG Base Excess FiO2 Sodium Potassium Chloride Carbon Dioxide Anion Gap BUN Creatinine Est GFR ( Amer) Glucose Calcium Total Bilirubin AST Alkaline Phosphatase Total Protein Albumin Urine Color YELLOW Urine Appearance SLIGHTLY-CLOUDY Urine pH 6.0 Ur Specific [place] 1.021 Urine Protein 30 H Urine Glucose (UA) NEGATIVE Urine Ketones 20 H Urine Blood NEGATIVE Urine Nitrite NEGATIVE Ur Leukocyte Esterase NEGATIVE Urine WBC (Auto) 2 Urine RBC (Auto) 1 10/26/20 10/26/20 11:15 11:15 Creatine Kinase 22 L CK-MB (CK-2) < 0.22 Troponin I < 0.012 NT-Pro-B Natriuret Pep 786 H Impressions: Chest X-Ray 10/26/20 09:55 IMPRESSION: Severe emphysematous change with new left upper and lower lobe patchy opacities compatible with pneumonia. Underlying lesion is not entirely excluded. Recommend follow-up to resolution. Chest/Abdomen CTA 10/26/20 10:37 IMPRESSION: 1. No pulmonary embolus. 2. Severe emphysematous change with new patchy areas of consolidation throughout the left lung compatible superimposed pneumonia. 3. Multiple previously described pulmonary nodules with mild interval change as above. Assessment and Plan - Diagnosis (1) Community acquired pneumonia Qualifiers: Laterality: left Is this a current diagnosis for this admission?: Yes (2) Left lower lobe pneumonia Qualifiers: Pneumonia type: due to unspecified organism Qualified Code(s): J18.9 - Pneumonia, unspecified organism Is this a current diagnosis for this admission?: Yes (3) Bullous emphysema Is this a current diagnosis for this admission?: Yes (4) COPD exacerbation Is this a current diagnosis for this admission?: Yes (5) Acute and chronic respiratory failure with hypoxia Is this a current diagnosis for this admission?: Yes (6) Hyponatremia Is this a current diagnosis for this admission?: Yes (7) Hyperlipidemia Qualifiers: Hyperlipidemia type: unspecified Qualified Code(s): E78.5 - Hyperlipidemia, unspecified Is this a current diagnosis for this admission?: Yes (8) Depression Qualifiers: Depression Type: unspecified Qualified Code(s): F32.9 - Major depressive disorder, single episode, unspecified Is this a current diagnosis for this admission?: Yes - Plan Summary Summary: (1) Community acquired pneumonia (2) Left lower lobe pneumonia (3) Bullous emphysema (4) COPD exacerbation (5) Acute and chronic respiratory failure with hypoxia (6) Hyponatremia (7) Hyperlipidemia (8) Depression 10/26/2020 Community-acquired pneumonia-large left-sided pneumonia. All serologies for viral etiology were negative. Continue Rocephin and Zithromax. COPD exacerbation with severe bullous emphysema and acute on chronic respiratory failure with hypoxia-continue oxygen supplementation. Keep oxygen saturation between 90 and 94%. The patient wears CPAP at night. I believe this is more to prevent CO2 retention than true obstructive sleep apnea. We will utilize duo nebs and budesonide nebulizers scheduled and albuterol nebs as needed. He may need systemic steroids as well. Continue Singulair 10 mg each night. Depression-the patient has lost multiple relatives including siblings and his daughter in the last 12 months. His poor sleep pattern and decreased appetite are consistent with depression. He has agreed to start a trial of antidepressant medication. Will initiate sertraline on a trial basis. Hyponatremia-monitor serum sodium. Consider fluid restriction if necessary. Hyperlipidemia-continue atorvastatin 80 mg daily. - Time Time Spent with patient: 35 or more minutes Medications reviewed and adjusted accordingly: Yes Anticipated Discharge Disposition: Home, Self Care Anticipated Discharge Timeframe: Unknown - Inpatient Certification Based on my medical assessment, after consideration of the patient's comorbidities, presenting symptoms, or acuity I expect that the services needed warrant INPATIENT care.: Yes I certify that my determination is in accordance with my understanding of Medicare's requirements for reasonable and necessary INPATIENT services [42 CFR 412.3e].: Yes Medical Necessity: Need Close Monitoring Due to Risk of Patient Decompensation, Need For Continuous Telemetry Monitoring, Need for Nebulizer Therapy and Monitoring of Response, Need for IV Antibiotics Post Hospital Care: D/C or Transfer Summary
[2020-10-26] MEDS: BUDESONIDE NEB 0.5 MG/2 ML AMPUL NEB SCH (21:11)
--- NOTE | 2020-10-26 21:49 | EKG REPORT ---
SEVERITY:- NORMAL ECG - SINUS RHYTHM : Confirmed by: Sylwia Allan 26-Oct-2020 21:47:33
[2020-10-26] MEDS: MONTELUKAST SODIUM 10 MG TABLET PO SCH (22:46)
[2020-10-26] MEDS: FAMOTIDINE 20 MG TABLET PO SCH (22:46)
[2020-10-26] MEDS: ATORVASTATIN CALCIUM 80 MG TABLET PO SCH (22:46)
[2020-10-26] MEDS: GUAIFENESIN 600 MG TABLET.SA PO SCH (22:46)
[2020-10-26] MEDS: SERTRALINE HCL 50 MG TABLET PO SCH (22:46)
[2020-10-26] MEDS: HEPARIN SOD (PORCINE) 5,000 UNIT/ML 1 ML VIAL SUBCUT SCH (22:47)
[2020-10-27] MEDS: HEPARIN SOD (PORCINE) 5,000 UNIT/ML 1 ML VIAL SUBCUT SCH ×3 (05:07→23:02)
[2020-10-27 06:13] LABS: HEMATOCRIT 35.1 % (37.9-51.0); HEMOGLOBIN 11.5 g/dL (13.5-17.0); MEAN CORPUSCULAR HEMOGLOBIN 26.4 pg (27.0-33.4); MEAN CORPUSCULAR HGB CONC 32.7 g/dL (32.0-36.0); MEAN CORPUSCULAR VOLUME 81 fl (80-97); PLATELET COUNT 421 10^3/uL (150-450); RED BLOOD COUNT 4.34 10^6/uL (4.35-5.55); RED CELL DISTRIBUTION WIDTH 13.9 % (11.5-14.0)
[2020-10-27 06:42] LABS: ANION GAP 8 (5-19); BLOOD UREA NITROGEN 11 mg/dL (7-20); CALCIUM 8.1 mg/dL (8.4-10.2); CARBON DIOXIDE 27 mmol/L (22-30); CHLORIDE 98 mmol/L (98-107); GLUCOSE 89 mg/dL (75-110)
[2020-10-27 07:19] LABS: ABSOLUTE LYMPHOCYTES# (MANUAL) 0.6 10^3/uL (0.5-4.7); ABSOLUTE MONOCYTES # (MANUAL) 1.2 10^3/uL (0.1-1.4); BASOPHILS % (MANUAL) 0 % (0-2); EOSINOPHILS % (MANUAL) 4 % (0-6); LYMPHOCYTES % (MANUAL) 3 % (13-45); MONOCYTES % (MANUAL) 10 % (3-13); SEGMENTED NEUTROPHILS % (MAN) 81 % (42-78); TOTAL CELLS COUNTED 100
[2020-10-27 07:22] LABS: ANISOCYTOSIS SLIGHT; BURR CELLS SLIGHT; OVALOCYTES SLIGHT; PLATELET COMMENT ADEQUATE; POIKILOCYTOSIS SLIGHT; TEAR DROP CELLS SLIGHT; TOXIC GRANULATION 1+; TOXIC VACUOLATION PRESENT
[2020-10-27] MEDS: BUDESONIDE NEB 0.5 MG/2 ML AMPUL NEB SCH ×2 (08:28→21:45)
[2020-10-27] MEDS: FAMOTIDINE 20 MG TABLET PO SCH ×2 (10:58→23:03)
[2020-10-27] MEDS: GUAIFENESIN 600 MG TABLET.SA PO SCH ×2 (10:58→23:03)
[2020-10-27] MEDS: AZITHROMYCIN 500 MG in DEXTROSE 5%-WATER 250 ML IV SCH (10:59)
[2020-10-27] MEDS: CEFTRIAXONE 1 GM/D5W RTU 1 GM/50 ML RTUPB IV SCH (11:00)
--- NOTE | 2020-10-27 11:52 | PDOC PROGRESS REPORT ---
Subjective Date:: 10/27/20 Subjective:: Doing well. Down to 1/2 L/min by nasal cannula oxygen. Feels slightly less cheryl rt of breath at rest but still short of breath with exertion. With his severe pulmonary disease this will likely be consistent and part of his baseline. Reason For Visit: PNEUMONIA,BULLOUS EMPHYSEMA,COPD,HYPERLIPIDEMIA, Physical Exam Vital Signs: Temp Pulse Resp BP Pulse Ox 97.4 F 91 20 113/79 91 L 10/27/20 07:15 10/27/20 08:30 10/27/20 08:30 10/27/20 07:15 10/27/20 08:30 Intake & Output 10/26/20 10/27/20 10/28/20 06:59 06:59 06:59 Intake Total 560 240 Output Total 500 Balance 60 240 Weight 63.5 kg General appearance: PRESENT: no acute distress, cooperative, well-developed Head exam: PRESENT: atraumatic, normocephalic Eye exam: PRESENT: conjunctiva pink, EOMI. ABSENT: scleral icterus Mouth exam: PRESENT: moist, tongue midline Teeth exam: PRESENT: other - Dentures upper and lower Neck exam: ABSENT: carotid bruit, JVD, lymphadenopathy Respiratory exam: PRESENT: clear to auscultation radha, prolonged expiratory phas, symmetrical, unlabored. ABSENT: accessory muscle use, crackles, rales, rhonchi, tachypnea, wheezes Cardiovascular exam: PRESENT: RRR, +S1, +S2. ABSENT: bradycardia, diastolic murmur, irregular rhythm, systolic murmur, tachycardia GI/Abdominal exam: PRESENT: normal bowel sounds, soft. ABSENT: distended, guarding, tenderness Rectal exam: PRESENT: deferred Gentrourinary exam: ABSENT: indwelling catheter Extremities exam: ABSENT: calf tenderness, clubbing, pedal edema Musculoskeletal exam: PRESENT: ambulatory, normal inspection. ABSENT: deformity, dislocation Neurological exam: PRESENT: alert, awake, oriented to person, oriented to place, oriented to time, oriented to situation, CN II-XII grossly intact. ABSENT: altered, motor sensory deficit Psychiatric exam: PRESENT: appropriate affect, normal mood. ABSENT: agitated, anxious Focused psych exam: ABSENT: delusional, paranoid, restlessness Skin exam: PRESENT: dry, normal color, warm. ABSENT: rash Results Laboratory Results: 10/27/20 05:07 10/27/20 05:07 10/26/20 10/26/20 10/26/20 11:15 11:15 11:50 WBC 17.8 H RBC 4.79 Hgb 13.0 L Hct 38.8 MCV 81 MCH 27.0 MCHC 33.4 RDW 14.1 H Plt Count 546 H Seg Neutrophils % 83.6 H Carbonic Acid 1.11 HCO3/H2CO3 Ratio 21:1 ABG pH 7.43 ABG pCO2 36.9 ABG pO2 75.3 L ABG HCO3 24.2 H ABG O2 Saturation 95.6 ABG Base Excess 0.2 FiO2 32% Sodium 133.9 L Potassium 4.2 Chloride 94 L Carbon Dioxide 31 H Anion Gap 9 BUN 12 Creatinine 0.58 Est GFR ( Amer) > 60 Glucose 87 Calcium 8.7 Magnesium Total Bilirubin 0.7 AST 43 Alkaline Phosphatase 125 Total Protein 6.6 Albumin 3.0 L Urine Color Urine Appearance Urine pH Ur Specific [place] Urine Protein Urine Glucose (UA) Urine Ketones Urine Blood Urine Nitrite Ur Leukocyte Esterase Urine WBC (Auto) Urine RBC (Auto) 10/26/20 10/27/20 10/27/20 12:54 05:07 05:07 WBC 12.0 H RBC 4.34 L Hgb 11.5 L Hct 35.1 L MCV 81 MCH 26.4 L MCHC 32.7 RDW 13.9 Plt Count 421 Seg Neutrophils % Not Reportable Carbonic Acid HCO3/H2CO3 Ratio ABG pH ABG pCO2 ABG pO2 ABG HCO3 ABG O2 Saturation ABG Base Excess FiO2 Sodium 132.8 L Potassium 4.0 Chloride 98 Carbon Dioxide 27 Anion Gap 8 BUN 11 Creatinine 0.45 L Est GFR ( Amer) > 60 Glucose 89 Calcium 8.1 L Magnesium 2.1 Total Bilirubin AST Alkaline Phosphatase Total Protein Albumin Urine Color YELLOW Urine Appearance SLIGHTLY-CLOUDY Urine pH 6.0 Ur Specific [place] 1.021 Urine Protein 30 H Urine Glucose (UA) NEGATIVE Urine Ketones 20 H Urine Blood NEGATIVE Urine Nitrite NEGATIVE Ur Leukocyte Esterase NEGATIVE Urine WBC (Auto) 2 Urine RBC (Auto) 1 10/26/20 10/26/20 11:15 11:15 Creatine Kinase 22 L CK-MB (CK-2) < 0.22 Troponin I < 0.012 NT-Pro-B Natriuret Pep 786 H Impressions: Chest X-Ray 10/26/20 09:55 IMPRESSION: Severe emphysematous change with new left upper and lower lobe patchy opacities compatible with pneumonia. Underlying lesion is not entirely excluded. Recommend follow-up to resolution. Chest/Abdomen CTA 10/26/20 10:37 IMPRESSION: 1. No pulmonary embolus. 2. Severe emphysematous change with new patchy areas of consolidation throughout the left lung compatible superimposed pneumonia. 3. Multiple previously described pulmonary nodules with mild interval change as above. Assessment and Plan - Diagnosis (1) Community acquired pneumonia Qualifiers: Laterality: left Is this a current diagnosis for this admission?: Yes (2) Left lower lobe pneumonia Qualifiers: Pneumonia type: due to unspecified organism Qualified Code(s): J18.9 - Pneumonia, unspecified organism Is this a current diagnosis for this admission?: Yes (3) Bullous emphysema Is this a current diagnosis for this admission?: Yes (4) COPD exacerbation Is this a current diagnosis for this admission?: Yes (5) Acute and chronic respiratory failure with hypoxia Is this a current diagnosis for this admission?: Yes (6) Hyponatremia Is this a current diagnosis for this admission?: Yes (7) Hyperlipidemia Qualifiers: Hyperlipidemia type: unspecified Qualified Code(s): E78.5 - Hyperlipidemia, unspecified Is this a current diagnosis for this admission?: Yes (8) Depression Qualifiers: Depression Type: unspecified Qualified Code(s): F32.9 - Major depressive disorder, single episode, unspecified Is this a current diagnosis for this admission?: Yes - Plan Summary Summary: (1) Community acquired pneumonia (2) Left lower lobe pneumonia (3) Bullous emphysema (4) COPD exacerbation (5) Acute and chronic respiratory failure with hypoxia (6) Hyponatremia (7) Hyperlipidemia (8) Depression 10/26/2020 Community-acquired pneumonia-large left-sided pneumonia. All serologies for viral etiology were negative. Continue Rocephin and Zithromax. COPD exacerbation with severe bullous emphysema and acute on chronic respiratory failure with hypoxia-continue oxygen supplementation. Keep oxygen saturation between 90 and 94%. The patient wears CPAP at night. I believe this is more to prevent CO2 retention than true obstructive sleep apnea. We will utilize duo nebs and budesonide nebulizers scheduled and albuterol nebs as needed. He may need systemic steroids as well. Continue Singulair 10 mg each night. Depression-the patient has lost multiple relatives including siblings and his daughter in the last 12 months. His poor sleep pattern and decreased appetite are consistent with depression. He has agreed to start a trial of antidepressant medication. Will initiate sertraline on a trial basis. Hyponatremia-monitor serum sodium. Consider fluid restriction if necessary. Hyperlipidemia-continue atorvastatin 80 mg daily. 10/27/2020 Pneumonia-continue current antibiotic therapy. COPD with severe bullous emphysema and acute on chronic respiratory failure with hypoxia-continue oxygen supplementation. The patient states that usually he does not use oxygen at home however he most likely should be. We will try and keep his oxygen saturation below 94%. Continue scheduled nebulizer treatments as well as the as needed treatments. Depression-trial of sertraline has been initiated. Hyponatremia-serum sodium 132.8. Continue to monitor. Hyperlipidemia-continue atorvastatin. - Time Time Spent with patient: 15-24 minutes Medications reviewed and adjusted accordingly: Yes Anticipated Discharge Disposition: Home with Home Health Anticipated Discharge Timeframe: within 72 hours
[2020-10-27] MEDS: IPRATROPIUM/ALBUTEROL 0.5-2.5 MG/3 ML AMPUL NEB SCH (21:45)
[2020-10-27] MEDS: SERTRALINE HCL 50 MG TABLET PO SCH (23:03)
[2020-10-27] MEDS: ATORVASTATIN CALCIUM 80 MG TABLET PO SCH (23:04)
[2020-10-27] MEDS: MONTELUKAST SODIUM 10 MG TABLET PO SCH (23:04)
[2020-10-28] MEDS: HEPARIN SOD (PORCINE) 5,000 UNIT/ML 1 ML VIAL SUBCUT SCH ×3 (06:18→22:25)
[2020-10-28] MEDS: BUDESONIDE NEB 0.5 MG/2 ML AMPUL NEB SCH ×2 (09:00→19:46)
[2020-10-28] MEDS: IPRATROPIUM/ALBUTEROL 0.5-2.5 MG/3 ML AMPUL NEB SCH ×2 (09:00→19:46)
[2020-10-28] MEDS: FAMOTIDINE 20 MG TABLET PO SCH ×2 (09:36→22:25)
[2020-10-28] MEDS: GUAIFENESIN 600 MG TABLET.SA PO SCH ×2 (09:36→22:25)
[2020-10-28] MEDS: CEFTRIAXONE 1 GM/D5W RTU 1 GM/50 ML RTUPB IV SCH (09:36)
[2020-10-28] MEDS: AZITHROMYCIN 500 MG in DEXTROSE 5%-WATER 250 ML IV SCH (09:43)
--- NOTE | 2020-10-28 12:45 | PDOC PROGRESS REPORT ---
Subjective Date:: 10/28/20 Subjective:: Patient is resting comfortably. He is down to 1 L nasal cannula. No new compla ints. He does report that the sputum that he is coughing up is getting buffet server in color. Reason For Visit: PNEUMONIA,BULLOUS EMPHYSEMA,COPD,HYPERLIPIDEMIA, Physical Exam Vital Signs: Temp Pulse Resp BP Pulse Ox 97.4 F 84 20 104/65 95 10/28/20 08:41 10/28/20 09:00 10/28/20 09:00 10/28/20 08:41 10/28/20 09:00 Intake & Output 10/27/20 10/28/20 10/29/20 06:59 06:59 06:59 Intake Total 560 1396 Output Total 500 300 Balance 60 1096 Weight 63.5 kg General appearance: PRESENT: no acute distress, cooperative, well-developed Head exam: PRESENT: atraumatic, normocephalic Eye exam: PRESENT: conjunctiva pink, EOMI. ABSENT: scleral icterus Mouth exam: PRESENT: moist, tongue midline Respiratory exam: PRESENT: symmetrical, unlabored, wheezes - Trace expiratory wheezes on the right. ABSENT: accessory muscle use, rales, rhonchi, tachypnea Cardiovascular exam: PRESENT: RRR, +S1, +S2. ABSENT: bradycardia, diastolic murmur, irregular rhythm, systolic murmur, tachycardia GI/Abdominal exam: PRESENT: normal bowel sounds, soft. ABSENT: distended, guarding, tenderness Rectal exam: PRESENT: deferred Gentrourinary exam: ABSENT: indwelling catheter Extremities exam: ABSENT: pedal edema Neurological exam: PRESENT: alert, awake, oriented to person, oriented to place, oriented to time, oriented to situation, CN II-XII grossly intact. ABSENT: altered Psychiatric exam: PRESENT: appropriate affect. ABSENT: agitated, anxious Focused psych exam: ABSENT: delusional, paranoid, restlessness Skin exam: PRESENT: dry, normal color, warm. ABSENT: rash Results Laboratory Results: 10/27/20 05:07 10/27/20 05:07 10/26/20 10/26/20 11:15 11:15 Creatine Kinase 22 L CK-MB (CK-2) < 0.22 Troponin I < 0.012 NT-Pro-B Natriuret Pep 786 H Impressions: Chest X-Ray 10/26/20 09:55 IMPRESSION: Severe emphysematous change with new left upper and lower lobe patchy opacities compatible with pneumonia. Underlying lesion is not entirely excluded. Recommend follow-up to resolution. Chest/Abdomen CTA 10/26/20 10:37 IMPRESSION: 1. No pulmonary embolus. 2. Severe emphysematous change with new patchy areas of consolidation throughout the left lung compatible superimposed pneumonia. 3. Multiple previously described pulmonary nodules with mild interval change as above. Assessment and Plan - Diagnosis (1) Community acquired pneumonia Qualifiers: Laterality: left Is this a current diagnosis for this admission?: Yes (2) Left lower lobe pneumonia Qualifiers: Pneumonia type: due to unspecified organism Qualified Code(s): J18.9 - Pneumonia, unspecified organism Is this a current diagnosis for this admission?: Yes (3) Bullous emphysema Is this a current diagnosis for this admission?: Yes (4) COPD exacerbation Is this a current diagnosis for this admission?: Yes (5) Acute and chronic respiratory failure with hypoxia Is this a current diagnosis for this admission?: Yes (6) Hyponatremia Is this a current diagnosis for this admission?: Yes (7) Hyperlipidemia Qualifiers: Hyperlipidemia type: unspecified Qualified Code(s): E78.5 - Hyperlipidemia, unspecified Is this a current diagnosis for this admission?: Yes (8) Depression Qualifiers: Depression Type: unspecified Qualified Code(s): F32.9 - Major depressive disorder, single episode, unspecified Is this a current diagnosis for this admission?: Yes - Plan Summary Summary: (1) Community acquired pneumonia (2) Left lower lobe pneumonia (3) Bullous emphysema (4) COPD exacerbation (5) Acute and chronic respiratory failure with hypoxia (6) Hyponatremia (7) Hyperlipidemia (8) Depression 10/26/2020 Community-acquired pneumonia-large left-sided pneumonia. All serologies for viral etiology were negative. Continue Rocephin and Zithromax. COPD exacerbation with severe bullous emphysema and acute on chronic respiratory failure with hypoxia-continue oxygen supplementation. Keep oxygen saturation between 90 and 94%. The patient wears CPAP at night. I believe this is more to prevent CO2 retention than true obstructive sleep apnea. We will utilize duo nebs and budesonide nebulizers scheduled and albuterol nebs as needed. He may need systemic steroids as well. Continue Singulair 10 mg each night. Depression-the patient has lost multiple relatives including siblings and his daughter in the last 12 months. His poor sleep pattern and decreased appetite are consistent with depression. He has agreed to start a trial of antidepressant medication. Will initiate sertraline on a trial basis. Hyponatremia-monitor serum sodium. Consider fluid restriction if necessary. Hyperlipidemia-continue atorvastatin 80 mg daily. 10/27/2020 Pneumonia-continue current antibiotic therapy. COPD with severe bullous emphysema and acute on chronic respiratory failure with hypoxia-continue oxygen supplementation. The patient states that usually he does not use oxygen at home however he most likely should be. We will try and keep his oxygen saturation below 94%. Continue scheduled nebulizer treatments as well as the as needed treatments. Depression-trial of sertraline has been initiated. Hyponatremia-serum sodium 132.8. Continue to monitor. Hyperlipidemia-continue atorvastatin. 10/28/2020 Pneumonia-the patient is feeling much better. As noted above the sputum is buffet server in color. Continue Rocephin and Zithromax. COPD with severe bullous emphysema-continue current regimen. Oxygen requirements have decreased. Continue current regimen at this time. Depression-the patient seems to be in better spirits. Continue trial of sertraline. Hyponatremia-no laboratory studies today. Check labs tomorrow. Hyperlipidemia-continue atorvastatin The patient should be able to go home tomorrow. We will check a walking oximetr y. He does have an oxygen concentrator at home. We will discuss desired oxygen saturation range for after discharge. - Time Time Spent with patient: 15-24 minutes Medications reviewed and adjusted accordingly: Yes Anticipated Discharge Disposition: Home with Home Health Anticipated Discharge Timeframe: within 48 hours
[2020-10-28] MEDS: MONTELUKAST SODIUM 10 MG TABLET PO SCH (22:25)
[2020-10-28] MEDS: ATORVASTATIN CALCIUM 80 MG TABLET PO SCH (22:25)
[2020-10-28] MEDS: SERTRALINE HCL 50 MG TABLET PO SCH (22:25)
[2020-10-29] MEDS: HEPARIN SOD (PORCINE) 5,000 UNIT/ML 1 ML VIAL SUBCUT SCH (06:11)
[2020-10-29 07:02] LABS: HEMATOCRIT 32.7 % (37.9-51.0); HEMOGLOBIN 10.8 g/dL (13.5-17.0); MEAN CORPUSCULAR HEMOGLOBIN 26.5 pg (27.0-33.4); MEAN CORPUSCULAR HGB CONC 32.9 g/dL (32.0-36.0); MEAN CORPUSCULAR VOLUME 81 fl (80-97); PLATELET COUNT 401 10^3/uL (150-450); RED BLOOD COUNT 4.06 10^6/uL (4.35-5.55); RED CELL DISTRIBUTION WIDTH 14.3 % (11.5-14.0)
[2020-10-29 07:12] LABS: ABSOLUTE LYMPHOCYTES# (MANUAL) 1.1 10^3/uL (0.5-4.7); ABSOLUTE MONOCYTES # (MANUAL) 0.4 10^3/uL (0.1-1.4); BASOPHILS % (MANUAL) 0 % (0-2); EOSINOPHILS % (MANUAL) 2 % (0-6); LYMPHOCYTES % (MANUAL) 10 % (13-45); MONOCYTES % (MANUAL) 4 % (3-13); SEGMENTED NEUTROPHILS % (MAN) 84 % (42-78); TOTAL CELLS COUNTED 100
[2020-10-29 07:13] LABS: RBC MORPHOLOGY COMMENT NORMO-CYTIC/CHROMIC
[2020-10-29 07:14] LABS: PLATELET COMMENT ADEQUATE
[2020-10-29] MEDS: BUDESONIDE NEB 0.5 MG/2 ML AMPUL NEB SCH (08:27)
[2020-10-29] MEDS: IPRATROPIUM/ALBUTEROL 0.5-2.5 MG/3 ML AMPUL NEB SCH (08:28)
[2020-10-29 08:33] LABS: ANION GAP 5 (5-19); BLOOD UREA NITROGEN 10 mg/dL (7-20); CALCIUM 8.3 mg/dL (8.4-10.2); CARBON DIOXIDE 32 mmol/L (22-30); CHLORIDE 98 mmol/L (98-107); GLUCOSE 95 mg/dL (75-110); POTASSIUM 4.8 mmol/L (3.6-5.0)
[2020-10-29] MEDS: CEFTRIAXONE 1 GM/D5W RTU 1 GM/50 ML RTUPB IV SCH (09:31)
[2020-10-29] MEDS: GUAIFENESIN 600 MG TABLET.SA PO SCH (09:34)
[2020-10-29] MEDS: FAMOTIDINE 20 MG TABLET PO SCH (09:34)
[2020-10-29 09:59] VITALS: BP 101/72
[2020-10-29] MEDS: AZITHROMYCIN 500 MG in DEXTROSE 5%-WATER 250 ML IV SCH (10:10)
--- NOTE | 2020-10-29 10:15 | PDOC DISCHARGE SUMMARY ---
Impression - Admit/DC Date/PCP Admission Date/Primary Care Provider: 10/26/20 18:09 CORNELL CLINE MD Discharge Date: 10/29/20 - Discharge Diagnosis (1) Community acquired pneumonia Is this a current diagnosis for this admission?: Yes (2) Left lower lobe pneumonia Is this a current diagnosis for this admission?: Yes (3) Bullous emphysema Is this a current diagnosis for this admission?: Yes (4) COPD exacerbation Is this a current diagnosis for this admission?: Yes (5) Acute and chronic respiratory failure with hypoxia Is this a current diagnosis for this admission?: Yes (6) Hyponatremia Is this a current diagnosis for this admission?: Yes (7) Hyperlipidemia Is this a current diagnosis for this admission?: Yes (8) Depression Is this a current diagnosis for this admission?: Yes - Assessment Summary: (1) Community acquired pneumonia (2) Left lower lobe pneumonia (3) Bullous emphysema (4) COPD exacerbation (5) Acute and chronic respiratory failure with hypoxia (6) Hyponatremia (7) Hyperlipidemia (8) Depression 10/26/2020 Community-acquired pneumonia-large left-sided pneumonia. All serologies for viral etiology were negative. Continue Rocephin and Zithromax. COPD exacerbation with severe bullous emphysema and acute on chronic respiratory failure with hypoxia-continue oxygen supplementation. Keep oxygen saturation between 90 and 94%. The patient wears CPAP at night. I believe this is more to prevent CO2 retention than true obstructive sleep apnea. We will utilize duo nebs and budesonide nebulizers scheduled and albuterol nebs as needed. He may need systemic steroids as well. Continue Singulair 10 mg each night. Depression-the patient has lost multiple relatives including siblings and his daughter in the last 12 months. His poor sleep pattern and decreased appetite are consistent with depression. He has agreed to start a trial of antidepre ssant medication. Will initiate sertraline on a trial basis. Hyponatremia-monitor serum sodium. Consider fluid restriction if necessary. Hyperlipidemia-continue atorvastatin 80 mg daily. 10/27/2020 Pneumonia-continue current antibiotic therapy. COPD with severe bullous emphysema and acute on chronic respiratory failure with hypoxia-continue oxygen supplementation. The patient states that usually he does not use oxygen at home however he most likely should be. We will try and keep his oxygen saturation below 94%. Continue scheduled nebulizer treatments as well as the as needed treatments. Depression-trial of sertraline has been initiated. Hyponatremia-serum sodium 132.8. Continue to monitor. Hyperlipidemia-continue atorvastatin. 10/28/2020 Pneumonia-the patient is feeling much better. As noted above the sputum is clinical coder in color. Continue Rocephin and Zithromax. COPD with severe bullous emphysema-continue current regimen. Oxygen requirements have decreased. Continue current regimen at this time. Depression-the patient seems to be in better spirits. Continue trial of sertraline. Hyponatremia-no laboratory studies today. Check labs tomorrow. Hyperlipidemia-continue atorvastatin The patient should be able to go home tomorrow. We will check a walking oximetry. He does have an oxygen concentrator at home. We will discuss desired oxygen saturation range for after discharge. 10/29/2020 Pneumonia-continue to improve. Will discharge to home on Ceftin and azithromycin. 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 Continue oxygen and maintain oxygen saturation between 88 and 92% Hyperlipidemia-continue atorvastatin Stable for discharge. - Additional Information Resuscitation Status: Full Code Discharge Diet: Cardiac Discharge Activity: Activity As Tolerated Referrals: CORNELL CLINE MD [Primary Care Provider] - 11/02/20 10:30 am SHEREEN VIERA MD [COMMUNITY BASED STAFF] - (APPOINTMENT IN 2 WEEKS ) Prescriptions: Fluticasone/Salmeterol [Advair 500-50 Diskus 14 Dose/Diskus] 1 inh IH Q12H #1 inhaler Cefuroxime Axetil [Ceftin 500 mg Tablet] 1 tab PO BID #16 tablet Prednisone [Deltasone 10 mg Tablet] 10 mg PO ASDIR #22 tablet Prednisone [Deltasone 10 mg Tablet] 10 mg PO ASDIR #21 tablet Azithromycin [Zithromax 250 mg Tablet] 250 mg PO DAILY #4 tablet Sertraline HCl [Zoloft 50 mg Tablet] 25 mg PO QHS #15 tablet Home Medications: Atorvastatin Calcium [Lipitor 80 mg Tablet] 80 mg PO QPM 09/01/18 Montelukast Sodium [Singulair 10 mg Tablet] 10 mg PO QPM 09/01/18 Tiotropium [place] [Spiriva Respimat] 2 puff IH QAM 11/14/18 Atorvastatin Calcium [Lipitor 80 mg Tablet] 80 mg PO QHS tablet 10/29/20 Azithromycin [Zithromax 250 mg Tablet] 250 mg PO DAILY #4 tablet 10/29/20 Cefuroxime Axetil [Ceftin 500 mg Tablet] 1 tab PO BID #16 tablet 10/29/20 Fluticasone/Salmeterol [Advair 500-50 Diskus 14 Dose/Diskus] 1 inh IH Q12H #1 inhaler 10/29/20 Guaifenesin [Mucinex Sr 600 mg Tablet.sa] 600 mg PO Q12 tablet.sa 10/29/20 Montelukast Sodium [Singulair 10 mg Tablet] 10 mg PO QHS tablet 10/29/20 Prednisone [Deltasone 10 mg Tablet] 10 mg PO ASDIR #21 tablet 10/29/20 Prednisone [Deltasone 10 mg Tablet] 10 mg PO ASDIR #22 tablet 10/29/20 Sertraline HCl [Zoloft 50 mg Tablet] 25 mg PO QHS #15 tablet 10/29/20 History of Present Illiness History of Present Illness: CHAD LY is a 65 year old male with a history of severe bullous emphysema status post lung reduction surgery, COPD and hyperlipidemia presents with increasing shortness of breath over the last 4 to 5 days. He has an oxygen concentrator at home but has not needed it up until recently. He does use CPAP at night most likely due to avoid CO2 retention because of his severe chronic lung disease. He denies a productive cough. He denies fever or chills. He states that he has experienced decreasing energy with increased fatigue. He has lost multiple relatives over the last 12 months. His son reports that his sleeping has been very poor and the patient admits that his appetite has been quite poor. He likely has experienced weight loss but a recent weight was unknown. CT scan shows a diffuse left-sided pneumonia as well as his severe bullous emphysema. He exhibits barrel chested anatomy and has the expected decreased inspiratory volume. Hospital Course Hospital Course: As above Physical Exam Vital Signs: Temp Pulse Resp BP Pulse Ox 98.2 F 84 21 H 101/72 97 10/29/20 09:18 10/29/20 09:18 10/29/20 09:18 10/29/20 09:18 10/29/20 09:18 Intake & Output 10/28/20 10/29/20 10/30/20 06:59 06:59 06:59 Intake Total 1396 1020 150 Output Total 300 975 Balance 1096 45 150 Weight 68.4 kg General appearance: PRESENT: no acute distress, cooperative, well-developed Respiratory exam: PRESENT: rhonchi, symmetrical, unlabored. ABSENT: tachypnea Cardiovascular exam: PRESENT: RRR, +S1, +S2 GI/Abdominal exam: PRESENT: normal bowel sounds, soft. ABSENT: tenderness Neurological exam: PRESENT: alert, awake, oriented to person, oriented to place, oriented to time, oriented to situation, CN II-XII grossly intact. ABSENT: altered Psychiatric exam: PRESENT: appropriate affect. ABSENT: agitated, anxious Results Laboratory Results: WBC 11.0 10^3/uL (4.0-10.5) H 10/29/20 06:21 RBC 4.06 10^6/uL (4.35-5.55) L 10/29/20 06:21 Hgb 10.8 g/dL (13.5-17.0) L 10/29/20 06:21 Hct 32.7 % (37.9-51.0) L 10/29/20 06:21 MCV 81 fl (80-97) 10/29/20 06:21 MCH 26.5 pg (27.0-33.4) L 10/29/20 06:21 MCHC 32.9 g/dL (32.0-36.0) 10/29/20 06:21 RDW 14.3 % (11.5-14.0) H 10/29/20 06:21 Plt Count 401 10^3/uL (150-450) 10/29/20 06:21 Lymph % (Auto) Not Reportable 10/29/20 06:21 [place] % (Auto) Not Reportable 10/29/20 06:21 Eos % (Auto) Not Reportable 10/29/20 06:21 Baso % (Auto) Not Reportable 10/29/20 06:21 Absolute Neuts (auto) Not Reportable 10/29/20 06:21 Absolute Lymphs (auto) Not Reportable 10/29/20 06:21 Absolute Monos (auto) Not Reportable 10/29/20 06:21 Absolute Eos (auto) Not Reportable 10/29/20 06:21 Absolute Basos (auto) Not Reportable 10/29/20 06:21 Total Counted 100 10/29/20 06:21 Seg Neutrophils % Not Reportable 10/29/20 06:21 Seg Neuts % (Manual) 84 % (42-78) H 10/29/20 06:21 Lymphocytes % (Manual) 10 % (13-45) L 10/29/20 06:21 Atypical Lymphs % 2 % (0) 10/27/20 05:07 Monocytes % (Manual) 4 % (3-13) 10/29/20 06:21 Eosinophils % (Manual) 2 % (0-6) 10/29/20 06:21 Basophils % (Manual) 0 % (0-2) 10/29/20 06:21 Abs Neuts (Manual) 9.2 10^3/uL (1.7-8.2) H 10/29/20 06:21 Abs Lymphs (Manual) 1.1 10^3/uL (0.5-4.7) 10/29/20 06:21 Abs Monocytes (Manual) 0.4 10^3/uL (0.1-1.4) 10/29/20 06:21 Absolute Eos (Manual) 0.2 10^3/uL (0.0-0.6) 10/29/20 06:21 Abs Basophils (Manual) 0.0 10^3/uL (0.0-0.2) 10/29/20 06:21 Toxic Granulation 1+ 10/27/20 05:07 Toxic Vacuolation PRESENT 10/27/20 05:07 Platelet Comment ADEQUATE 10/29/20 06:21 Poikilocytosis SLIGHT 10/27/20 05:07 Anisocytosis SLIGHT 10/27/20 05:07 Tear Drop Cells SLIGHT 10/27/20 05:07 Ovalocytes SLIGHT 10/27/20 05:07 [place] Cells SLIGHT 10/27/20 05:07 RBC Morph Comment NORMO-CYTIC/CHROMIC 10/29/20 06:21 Carbonic Acid 1.11 mmol/L (1.05-1.35) 10/26/20 11:50 HCO3/H2CO3 Ratio 21:1 10/26/20 11:50 ABG pH 7.43 (7.35-7.45) 10/26/20 11:50 ABG pCO2 36.9 mmHg (35-45) 10/26/20 11:50 ABG pO2 75.3 mmHg (80-100) L 10/26/20 11:50 ABG HCO3 24.2 mmol/L (20-24) H 10/26/20 11:50 ABG Total CO2 25.3 mmol/L (23-27) 10/26/20 11:50 ABG O2 Saturation 95.6 % (94-98) 10/26/20 11:50 ABG Base Excess 0.2 mmol/L 10/26/20 11:50 FiO2 32% 10/26/20 11:50 Sodium 134.8 mmol/L (137-145) L 10/29/20 07:34 Potassium 4.8 mmol/L (3.6-5.0) 10/29/20 07:34 Chloride 98 mmol/L (98-107) 10/29/20 07:34 Carbon Dioxide 32 mmol/L (22-30) H 10/29/20 07:34 Anion Gap 5 (5-19) 10/29/20 07:34 BUN 10 mg/dL (7-20) 10/29/20 07:34 Creatinine 0.48 mg/dL (0.52-1.25) L 10/29/20 07:34 Est GFR ( Amer) > 60 (>60) 10/29/20 07:34 Est GFR (Non-Af Amer) Cancelled 10/29/20 06:21 Est GFR (MDRD) Non-Af > 60 (>60) 10/29/20 07:34 Glucose 95 mg/dL (75-110) 10/29/20 07:34 Calcium 8.3 mg/dL (8.4-10.2) L 10/29/20 07:34 Magnesium 2.1 mg/dL (1.6-2.3) 10/29/20 07:34 Total Bilirubin 0.7 mg/dL (0.2-1.3) 10/26/20 11:15 Direct Bilirubin 0.3 mg/dL (0.0-0.4) 10/26/20 11:15 Neonat Total Bilirubin Not Reportable 10/26/20 11:15 Neonat Direct Bilirubin Not Reportable 10/26/20 11:15 Neonat Indirect Bili Not Reportable 10/26/20 11:15 AST 43 U/L (17-59) 10/26/20 11:15 ALT 31 U/L (<50) 10/26/20 11:15 Alkaline Phosphatase 125 U/L (38-126) 10/26/20 11:15 Creatine Kinase 22 U/L (55-170) L 10/26/20 11:15 CK-MB (CK-2) < 0.22 ng/mL (<4.55) 10/26/20 11:15 Troponin I < 0.012 ng/mL 10/26/20 11:15 NT-Pro-B Natriuret Pep 786 pg/mL (<125) H 10/26/20 11:15 Total Protein 6.6 g/dL (6.3-8.2) 10/26/20 11:15 Albumin 3.0 g/dL (3.5-5.0) L 10/26/20 11:15 EGFR Cancelled 10/29/20 06:21 Urine Color YELLOW 10/26/20 12:54 Urine Appearance SLIGHTLY-CLOUDY 10/26/20 12:54 Urine pH 6.0 (5.0-9.0) 10/26/20 12:54 Ur Specific [place] 1.021 10/26/20 12:54 Urine Protein 30 mg/dL (NEGATIVE) H 10/26/20 12:54 Urine Glucose (UA) NEGATIVE mg/dL (NEGATIVE) 10/26/20 12:54 Urine Ketones 20 mg/dL (NEGATIVE) H 10/26/20 12:54 Urine Blood NEGATIVE (NEGATIVE) 10/26/20 12:54 Urine Nitrite NEGATIVE (NEGATIVE) 10/26/20 12:54 Urine Bilirubin NEGATIVE (NEGATIVE) 10/26/20 12:54 Urine Urobilinogen 2.0 mg/dL (<2.0) H 10/26/20 12:54 Ur Leukocyte Esterase NEGATIVE (NEGATIVE) 10/26/20 12:54 Urine WBC (Auto) 2 /HPF 10/26/20 12:54 Urine RBC (Auto) 1 /HPF 10/26/20 12:54 U Hyaline Cast (Auto) 1 /LPF 10/26/20 12:54 Squamous Epi Cells Auto <1 /HPF 10/26/20 12:54 Urine Mucus (Auto) OCC /LPF 10/26/20 12:54 Urine Ascorbic Acid NEGATIVE (NEGATIVE) 10/26/20 12:54 [place] Human Metapneumo PCR NOT DETECTED (NOT DETECT) 10/26/20 11:15 Serum Alcohol < 10 mg/dL (NONE DETECTED) 10/26/20 11:15 Adenovirus (PCR) NOT DETECTED (NOT DETECT) 10/26/20 11:15 B. pertussis DNA (PCR) NOT DETECTED (NOT DETECT) 10/26/20 11:15 B.parapertussis DNA PCR NOT DETECTED (NOT DETECT) 10/26/20 11:15 C. pneumoniae DNA (PCR) NOT DETECTED (NOT DETECT) 10/26/20 11:15 Coronavirus OC43 (PCR) NOT DETECTED (NOT DETECT) 10/26/20 11:15 Coronavirus HKU1 (PCR) NOT DETECTED (NOT DETECT) 10/26/20 11:15 Coronavirus 229E (PCR) NOT DETECTED (NOT DETECT) 10/26/20 11:15 Coronavirus NL63 (PCR) NOT DETECTED (NOT DETECT) 10/26/20 11:15 Influenza A (H1) PCR NOT DETECTED (NOT DETECT) 10/26/20 11:15 Influ A (H1N1/09) PCR NOT DETECTED (NOT DETECT) 10/26/20 11:15 Influenza A (H3) PCR NOT DETECTED (NOT DETECT) 10/26/20 11:15 Influenza Type A (PCR) NOT DETECTED (NOT DETECT) 10/26/20 11:15 Influenza Type B (PCR) NOT DETECTED (NOT DETECT) 10/26/20 11:15 M. pneumoniae (PCR) NOT DETECTED (NOT DETECT) 10/26/20 11:15 Parainfluenza 1 (PCR) NOT DETECTED (NOT DETECT) 10/26/20 11:15 Parainfluenza 2 (PCR) NOT DETECTED (NOT DETECT) 10/26/20 11:15 Parainfluenza 3 (PCR) NOT DETECTED (NOT DETECT) 10/26/20 11:15 Parainfluenza 4 (PCR) NOT DETECTED (NOT DETECT) 10/26/20 11:15 RSV (PCR) NOT DETECTED (NOT DETECT) 10/26/20 11:15 Entero/Rhino (PCR) NOT DETECTED (NOT DETECT) 10/26/20 11:15 SARS-CoV-2 (PCR) NOT DETECTED (NOT DETECT) 10/26/20 11:15 10/26/20 11:15 CK-MB (CK-2) < 0.22 Troponin I < 0.012 NT-Pro-B Natriuret Pep 786 H Impressions: Chest X-Ray 10/26/20 09:55 IMPRESSION: Severe emphysematous change with new left upper and lower lobe patchy opacities compatible with pneumonia. Underlying lesion is not entirely excluded. Recommend follow-up to resolution. Chest/Abdomen CTA 10/26/20 10:37 IMPRESSION: 1. No pulmonary embolus. 2. Severe emphysematous change with new patchy areas of consolidation throughout the left lung compatible superimposed pneumonia. 3. Multiple previously described pulmonary nodules with mild interval change as above. Plan Health Concerns: Community-acquired pneumonia in a patient with severe bullous emphysema and COPD Plan of Treatment: Discharged home on home oxygen, adjust Advair, complete antibiotics with nebulizers as needed Goals: Complete resolution of pneumonia Time Spent: Greater than 30 Minutes Stroke Is this a Stroke Patient?: No Acute Heart Failure Is this a Heart Failure Patient?: No
[2020-10-30] MEDS ORDERED: CEFTRIAXONE SODIUM 1,000 MG in DEXTROSE 5%-WATER 50 ML IV SCH (10:00)
== END 2020-10-29 13:30 | disposition home or self-care (01) | DRG 193 ==
LOC: ER 09:43 → EH 18:09 → 4S 20:06
PROVIDERS: ADMIT Hospitalist; ATTEND Hospitalist
DX: J18.9 Pneumonia, unspecified organism (principal); J96.21 Acute and chronic respiratory failure with hypoxia; E87.1 Hypo-osmolality and hyponatremia; J43.9 Emphysema, unspecified; E78.00 Pure hypercholesterolemia, unspecified; F32.9 Major depressive disorder, single episode, unspecified; Z85.22 Personal history of malignant neoplasm of nasal cavities, middle ear, and accessory sinuses; Z85.819 Personal history of malignant neoplasm of unspecified site of lip, oral cavity, and pharynx; Z92.3 Personal history of irradiation; Z98.890 Other specified postprocedural states; Z87.891 Personal history of nicotine dependence; Z99.89 Dependence on other enabling machines and devices; Z82.5 Family history of asthma and other chronic lower respiratory diseases; Z20.828 Contact with and (suspected) exposure to other viral communicable diseases
CPT/HCPCS: 0202U; 36415; 36600; 71045; 71275; 80048; 80053; 80307; 81001; 82550; 82553; 82803; 83735; 83880; 84484; 85025; 87040; 93005; 93010; 94640; 94660; 96365; 96367; 99285; J0456; J0696; J1644; J3490; J7060; J7613